=== PATIENT | male | born 1950 | race Caucasian/White ===

== ENCOUNTER 2017-06-09 20:40 | Inpatient (IN) | payer MEDICAID ==
[2017-06-09] MEDS ORDERED: cefTRIAXone 1 GM in Sodium Chloride 0.9% 50 ML IV ONE (21:17)
[2017-06-09 21:22] VITALS: BP 224/87
--- NOTE | 2017-06-09 21:24 | ED Physician Chart ---
ED Chief Complaint/HPI - Patient Information Date Seen:: 06/09/17 Time Seen:: 21:00 Chief Complaint:: Toe Pain History of Present Illness:: onset x 5 days of LGT pain with swelling and redness; no trauma, H/As, neck pain , C/P, SOB, abd. Pain, A/N/V/D/C, fever, chills, or urinary s/s Allergies:: Allergies Allergy/AdvReac Type Severity Reaction Status Date / Time MDX No Known Allergies - Nka Allergy Verified 06/09/17 21:04 [No Known Allergies - Nka] Vitals:: Vital Signs - 8 hr 06/09/17 20:59 Temp 98.0 F HR 58 RR 18 BP 224/87 O2 Sat % 99 Historian:: Patient, Family Member Review:: Nurse's Note Reviewed ED Review of Systems - Review of Systems General/Constitutional: No fever, No chills, No weight loss, No weakness, No diaphoresis, No edema, No loss of appetite Skin: No skin lesions, No rash, No bruising Head: No headache, No light-headedness Eyes: No loss of vision, No pain, No diplopia ENT: No earache, No nasal drainage, No sore throat, No tinnitus Neck: No neck pain, No swelling, No thyromegaly, No stiffness, No mass noted Cardio Vascular: No chest pain, No palpitations, No PND, No orthopnea, No edema Pulmonary: No SOB, No cough, No sputum, No wheezing GI: No nausea, No vomiting, No diarrhea, No pain, No melena, No hematochezia, No constipation, No hematemesis G/U: No dysuria, No frequency, No hematuria Musculoskeletal: No bone or joint pain, No back pain, No muscle pain Endocrine: Polyuria, Polydipsia Psychiatric: No prior psych history, No depression, No anxiety, No suicidal ideation, No homicidal ideation, No auditory hallucination, No visual hallucination Hematopoietic: No bruising, No lymphadenopathy Allergic/Immuno: No urticaria, No angioedema Neurological: No syncope, No focal symptoms, No weakness, No paresthesia, No headache, No seizure, No dizziness, No confusion, No vertigo ED Past Medical History - Past Medical History Obtainable: Yes Past Medical History: HTN, DM, Dyslipidemia Family History: Diabetes Melitus, HTN Social History: Non Smoker, No Alcohol, No Drug Use, Surgical History: None Psychiatricy History: None Medication: Reviewed Family Medical History - Family Member Mother History Unknown: Yes ED Physical Exam - Physical Examination General/Constitutional: Awake, Well-developed, well-nourished, Alert, No distress, GCS 15, Non-toxic appearing, Ambulatory Head: Atraumatic Eyes: Lids, conjuctiva normal, PERRL, EOMI Skin: Nl inspection, No rash, No skin lesions, No ecchymosis, Well hydrated, No lymphadenopathy Other Skin comments:: LGT: + Cellulitis with ulcerations and gangrene ENMT: External ears, nose nl, TM canals nl, Nasal exam nl, Lips, teeth, gums nl , Oropharynx nl, Tonsils nl Neck: Nontender, Full ROM w/o pain, No JVD, No nuchal rigidity, No bruit, No mass, No stridor Respiratory: Nl effort/Exclusion, Clear to Auscultation, No Wheeze/Rhonchi/Rales Cardio Vascular: RRR, No murmur, gallop, rubs, NL S1 S2, Carotid/Femoral/Distal pulses equal bilaterally GI: No tenderness/rebounding/guarding, No organomegaly, No hernia, Normal BS's, Nondistended, No mass/bruits, No McBurney tenderness : No CVA tenderness Extremities: No tenderness or effusion, Full ROM, normal strength in all extremities, No edema, Normal digits & nails Neuro/Psych: Alert/oriented, DTR's symmetric, Normal sensory exam, Normal motor strength, Judgement/insight normal, Mood normal, Normal gait, No focal deficits Misc: Normal back, No paraspinal tenderness ED Labs/Radiology/EKG Results - Lab Results Comments:: Glucoser: 246; Na+: 130; K+: 3.4; H/H: 9.5/29.6 - Radiology Results Comments:: NAD - EKG Interpretations EKG Time:: 21:25 Rate & Rhythm: 60; NSR Comments:: LVH; non-specific st-t changes ED Septic Shock - . Is Septic Shock (SBP<90, OR Lactate>4 mmol\L) present?: No - <6hrs of presentation: Vital Signs: Vital Signs - 8 hr 11/ 20:59 Temp 98.0 F HR 58 RR 18 BP 224/87 O2 Sat % 99 ED Reassessment (Disposition) - Reassessment Reassessment Condition:: Improved - Diagnosis Diagnosis:: Dx: Hyperglycemia; HTN; DM; hyponatremia; Hypokalemia; Anemia; Cellullitis; Sepsis - Aftercare/Follow up Instructions Aftercare/Follow-Up Instructions:: Counseled pt regarding lab results/diagnosis & need follow up, Counseled pt & family regarding lab results/diagnosis & need follow up - Patient Disposition Discharge/Transfer:: Acute Care w/in this hosp Accepting Physician:: Dr. Nguyen Time Called:: 2214 Time Responded:: 22:15 Admitted to:: Med/Surg Spoke to:: Dr. Nguyen Admitting Medical Physician:: Dr. Nguyen Condition at Disposition:: Stable, Improved
[2017-06-09] MEDS ORDERED: Morphine Sulfate 2 mg/mL 1mL Syr ONE (21:25)
[2017-06-09 21:37] LABS: % BASOPHILS 1.1 % (0.0-2.0); % EOSINOPHILS 2.4 % (0.0-5.0); % NEUTROPHILS 65.5 % (40.0-80.0); HEMATOCRIT 29.6 % (41.0-60); HEMOGLOBIN 9.5 gm/dL (12-16); MEAN CELL VOLUME 92.3 fl (80-99); MEAN CORPUSCULAR HEMOGLOBIN 29.7 pg (27.0-31.0); MEAN CORPUSCULAR HGB CONC 32.1 pg (28.0-36.0); MEAN PLATELET VOLUME 8.9 fl; NEUTROPHILE ABSOLUTE 6.9 Th/cmm (1.8-8.0); PLATELET COUNT 256 Th/cmm (150-400); RED BLOOD COUNT 3.21 Mil/cmm (3.80-5.80); RED CELL DISTRIBUTION WIDTH 14.6 % (11.5-20.0)
[2017-06-09 21:39] LABS: WHITE BLOOD COUNT 10.5 Th/cmm (4.8-10.8)
[2017-06-09 21:51] LABS: INR 1.12 (0.5-1.4); PROTHROMBIN TIME (TEST) 11.8 SECONDS (9.5-11.5)
[2017-06-09 21:54] LABS: ALB/GLOB RATIO 1.1 (1.0-1.8); BILIRUBIN,TOTAL 0.4 mg/dL (0.3-1.0); CARBON DIOXIDE 16.4 mEq/L (21.0-31.0); POTASSIUM SERUM 3.4 mEq/L (3.5-5.1)
[2017-06-09 21:55] LABS: TROP I 0.03 ng/mL (0.01-0.05)
[2017-06-09 22:00] LABS: CREATININE - SERUM 4.6 mg/dL (0.7-1.3)
[2017-06-09] MEDS ORDERED: Potassium Chloride 20 mEq ER Tab PO ONE ×2 (22:19→22:38)
[2017-06-09] MEDS ORDERED: Acetaminophen 500 MG TAB PO PRN (22:31)
--- NOTE | 2017-06-09 23:51 | Consultation ---
Consult Note - Consult Note Service Date: 06/09/17 Referring Physician: Aureliano Nguyen Consult Note: PHYSICIAN Consultation Note: Date of Admission: 06/09/17 Purpose of Consultation: cellulitis of the right toe and foot. Chief Complaint: Patient MAIDA PADGETT was admitted to location Medical[facility]Surgical Unit I with LEFT FOOT CELLULITIS. History of Present Illness: 66 y male with history of DM2, HTN admitted to the hospital for darkening of the left big toe and distal foot. Patient was diagnosed to have cellulitis and started on vanco IV and Zosyn. ID consult was called for further antibiotic management. patient is also found to have hypertension with systolic > 230. Past Medical History: DM2, HTN. Allergies Allergy/AdvReac Type Severity Reaction Status Date / Time No Known Allergies Allergy Verified 06/09/17 21:21 Vital Signs Temp 98.0 F 06/09/17 20:59 Pulse 55 06/09/17 22:18 Resp 18 06/09/17 22:18 BP 180/54 06/09/17 22:18 Pulse Ox 98 06/09/17 22:18 Current Medications Generic Name Dose Route Start Last Admin Trade Name Freq PRN Reason Stop Dose Admin Acetaminophen 500 mg 06/09/17 22:31 Tylenol Extra Strength PO 08/08/17 22:44 Q4H PRN Pain or Fever >101 Acetaminophen/Hydrocodone Bitart 1 tab 06/09/17 22:29 [place] 5mg/325mg PO 08/08/17 22:28 Q6H PRN Pain (Severe) Vancomycin HCl 1 gm/ Sodium 250 mls @ 165 mls/hr 06/09/17 23:30 Chloride IV 06/10/17 01:00 ONCE ONE Insulin Aspart 0 units 06/10/17 07:30 Novolog Insulin Sliding Scale SUBQ 08/09/17 07:29 ACHS TERA Protocol Miscellaneous 1 ea 06/09/17 22:26 Vancomycin Iv Per Pharmacy [facility] 08/08/17 22:25 PRN PRN PROTOCOL Ondansetron HCl 4 mg 06/09/17 22:30 Zofran IV 08/08/17 22:29 Q6H PRN Nausea / Vomiting Review of Systems: A 12 point ROS was reviewed with the pertinent positive and negatives noted in the HPI. Physical Exam: General: comfortable, not in any acute distress. HEENT: head: normocephalic atraumatic. oral cavity moist pink tongue. eyes no pallor, no icterus. Neck: supple, no JVD,no carotid bruit. Cardio: S1 and S2 WNL. Respiratory: vesicular breath sounds. Abdominal: Soft nT ND BS Genital/Urinary: deferred Extremities: NCCE, left big toe is cyanotic with mottling, ice cold to touch. extended proximally to adjacent forefoot. Neurological: AAOx3 Assessment: 1. Hypertensive emergency. 2. Cellulitis of the left big toe, likely arterial insufficiency. 3. DM2 4. HTN. 5. CKD versus [place]. Plan: Will give vasotec ivp and clonidine. If there is no control of his blood pressure, may start labetalol drip and cardiology consult/ will start heparin drip. check cardiac markers. Nephrology consult. ECHO. cardiology consult if patient's blood pressure remains high. Arterial us stat/CRISTY. vascular surgery consult, ? CT angio. DW patient and informed of the risk associated with heparin infusion, hemorrhage and bleedings in particular. He was also informed of the his high blood pressure. more than 1 hr spent on the patient. Thank you Dr Nguyen for involving me in taking care of this patient. Leeroy, Aston Greene M.D. [id number]
[2017-06-10 00:51] LABS: URINE BILIRUBIN NEGATIVE (NEGATIVE); URINE BLOOD MODERATE (NEGATIVE); URINE GLUCOSE (UA) 250 mg/dL (NEGATIVE); URINE KETONE NEGATIVE (NEGATIVE); URINE PH 5.5 (4.6 - 8.0); URINE PROTEIN 100 mg/dL (NEGATIVE); URINE UROBILINOGEN 0.2 E.U./dL (0.2 - 1.0)
[2017-06-10 01:04] LABS: URINE COLOR YELLOW
[2017-06-10 01:05] LABS: URINE BACTERIA NONE SEEN /hpf (NONE SEEN); URINE EPITHELIAL CELLS NONE SEEN /lpf (FEW); URINE WBC NONE SEEN /hpf (0-5)
[2017-06-10] MEDS ORDERED: Heparin Sodium 1,000 Units/mL Vial IVP ONE (01:45)
[2017-06-10 06:11] LABS: % EOSINOPHILS 3.7 % (0.0-5.0); % MONOCYTES 7.9 % (2.0-10.0); % NEUTROPHILS 55.4 % (40.0-80.0); HEMATOCRIT 30.2 % (41.0-60); HEMOGLOBIN 9.7 gm/dL (12-16); MEAN CELL VOLUME 92.3 fl (80-99); MEAN CORPUSCULAR HEMOGLOBIN 29.8 pg (27.0-31.0); MEAN CORPUSCULAR HGB CONC 32.2 pg (28.0-36.0); MEAN PLATELET VOLUME 8.9 fl; NEUTROPHILE ABSOLUTE 5.8 Th/cmm (1.8-8.0); PLATELET COUNT 272 Th/cmm (150-400); RED BLOOD COUNT 3.27 Mil/cmm (3.80-5.80); RED CELL DISTRIBUTION WIDTH 14.9 % (11.5-20.0); WHITE BLOOD COUNT 10.5 Th/cmm (4.8-10.8)
[2017-06-10] MEDS: INSULIN ASPART SLIDING SCALE 100 UNITS/ML UNIT SUBQ SCH ×4 (06:36→20:47)
[2017-06-10 06:56] LABS: ANION GAP 13.1 (7.0-16.0); BUN/CREATININE RATIO 12.6; CALCIUM SERUM 8.3 mg/dL (8.6-10.3); CARBON DIOXIDE 16.6 mEq/L (21.0-31.0); POTASSIUM SERUM 3.7 mEq/L (3.5-5.1)
[2017-06-10 07:10] LABS: CREATININE - SERUM 4.6 mg/dL (0.7-1.3)
--- NOTE | 2017-06-10 08:20 | Diagnostic Imaging Report ---
Exam: Left foot. HISTORY: Pain Findings: Multiple views of left foot reviewed. The study demonstrates a valgus deformity of the left great toe. There is no evidence of acute fracture or dislocation. Mild soft tissue swelling is noted. IMPRESSION: Mild soft tissue swelling, no evidence for acute fracture dislocation Valgus deformity of the left great toe.
--- NOTE | 2017-06-10 08:21 | Diagnostic Imaging Report ---
Portable chest x-ray Time: 2139 History: Pain Allowing for portable technique the heart size is normal. No focal pulmonary parenchymal processes. No hilar or mediastinal abnormalities. Impression: No acute abnormalities.
[2017-06-10] MEDS: Heparin 25,000 Units In D5W 25,000 UNITS/250 ML BAG IV PRN (09:05)
--- NOTE | 2017-06-10 13:19 | Diagnostic Imaging Report ---
Left lower extremity arterial Doppler study HISTORY: Peripheral vascular disease COMPARISON: None Technique: Longitudinal and transverse sonographic images of the left lower extremity arteries were obtained with doppler analysis. FINDINGS: Exam of the left side demonstrates diffuse generalized atherosclerotic vascular disease with primarily monophasic waveforms seen throughout the left lower extremity arterial system. No significant focal stenosis identified. No evidence of occlusion. Bilateral ankle-brachial bases were obtained Right ankle brachial index: 0.7 left ankle brachial index: 0.7 IMPRESSION: Findings suggestive of diffuse atherosclerotic vascular disease of the left lower extremity. No significant focal stenosis or sonographic evidence of occlusion. Please correlate with clinical findings. If indicated CT angiography of the left lower extremity may also be obtained.
--- NOTE | 2017-06-10 13:28 | History & Physical ---
ADMIT DATE: 06/10/2017 REFERRING PHYSICIAN: Dr. Nguyen. REASON FOR CONSULTATION: Pain, left big toe. Thank you for referring this patient to me. HISTORY OF PRESENT ILLNESS: This is a 66-year-old male who is obese and diabetic, with complaints of pain on the left big toe for the last 4 days prior to admission. He claims he denies trauma. He claims it started, getting worse with bluish discoloration accompanying it. The laboratory studies show leukocytosis and azotemia Doppler arterial study shows decreased flow to left lower extremity Due to azotemia, CTA can result in nephropathy Heparin to be instituted now pending further discussion with specialists and patient DICTATION ENDS HERE JOB# [id number] JUDI
--- NOTE | 2017-06-10 13:57 | Cardiology ---
06/09/2017 M-MODE ECHOCARDIOGRAM: Mitral valve: Anterior leaflet of mitral valve shows normal excursion, EF velocity. Posterior leaflet of the mitral valve shows normal excursion. Left ventricular posterior wall shows increased thickness, normal excursion. Interventricular septum shows increased thickness, normal excursion, hypertrophy of the left ventricle, ejection fraction 60%. Left atrium enlarged 4.3 cm. Aortic root shows normal dimension, normal excursion of aortic leaflets. CONCLUSION: Left atrial enlargement, ejection fraction 60%. TWO-D ECHO: Long axis view showed normal sized left ventricle with hypertrophy of the left ventricle. Left atrium enlarged. Aortic root shows normal dimension, normal excursion of aortic leaflets. Short axis view of mitral valve normal. Short axis view of aortic valve normal. Apical four chamber view showed normal sized left ventricle with hypertrophy of the left ventricle. Left atrium enlarged. Right ventricular cavity, right atrium normal. No pericardial effusion. CONCLUSION: Hypertrophy of the left ventricle, left atrial enlargement, ejection fraction 60%. Doppler study shows prominent A wave consistent with poor compliance of left ventricle, hypertrophy of the left ventricle, mild mitral regurgitation, mild tricuspid regurgitation. [facility]# [id number]
[2017-06-10] MEDS ORDERED: cloNIDine 0.2 mg/24 hr Tdm TD SCH (14:15)
[2017-06-10] MEDS: Atorvastatin Calcium 10 MG TAB PO SCH (15:09)
[2017-06-10] MEDS: Levothyroxine 0.05 Mg Tab PO SCH (16:58)
[2017-06-10] MEDS: Sodium Chloride 0.45% 1,000 ML IV SCH (16:58)
--- NOTE | 2017-06-11 01:23 | Infectious Disease Prog Note ---
Infectious Disease Subjective - Review of Systems Service Date: 06/10/17 Subjective: No change, no fever. Infectious Disease Objective - Results Result Diagrams: 06/10/17 05:35 06/10/17 05:35 Recent Labs: Laboratory Last Values WBC 10.5 Th/cmm (4.8-10.8) 06/10/17 05:35 RBC 3.27 Mil/cmm (3.80-5.80) L 06/10/17 05:35 Hgb 9.7 gm/dL (12-16) L 06/10/17 05:35 Hct 30.2 % (41.0-60) L 06/10/17 05:35 MCV 92.3 fl (80-99) 06/10/17 05:35 MCH 29.8 pg (27.0-31.0) 06/10/17 05:35 MCHC Differential 32.2 pg (28.0-36.0) 06/10/17 05:35 RDW 14.9 % (11.5-20.0) 06/10/17 05:35 Plt Count 272 Th/cmm (150-400) 06/10/17 05:35 MPV 8.9 fl 06/10/17 05:35 Neutrophils % 55.4 % (40.0-80.0) 06/10/17 05:35 Lymphocytes % 32.0 % (20.0-50.0) 06/10/17 05:35 Monocytes % 7.9 % (2.0-10.0) 06/10/17 05:35 Eosinophils % 3.7 % (0.0-5.0) 06/10/17 05:35 Basophils % 1.0 % (0.0-2.0) 06/10/17 05:35 PT 11.8 SECONDS (9.5-11.5) H 06/09/17 21:29 INR 1.12 (0.5-1.4) 06/09/17 21:29 PTT (Actin FS) 70.4 SECONDS (26.0-38.0) H 06/10/17 22:36 Sodium 138 mEq/L (136-145) 06/10/17 05:35 Potassium 3.7 mEq/L (3.5-5.1) 06/10/17 05:35 Chloride 112 mEq/L (98-107) H 06/10/17 05:35 Carbon Dioxide 16.6 mEq/L (21.0-31.0) L 06/10/17 05:35 Anion Gap 13.1 (7.0-16.0) 06/10/17 05:35 BUN 58 mg/dL (7-25) H 06/10/17 05:35 Creatinine 4.6 mg/dL (0.7-1.3) H* 06/10/17 05:35 Est GFR ( Amer) 16.4 ml/min (>90) 06/10/17 05:35 Est GFR (Non-Af Amer) 13.6 ml/min 06/10/17 05:35 BUN/Creatinine Ratio 12.6 06/10/17 05:35 Glucose 144 mg/dL (70-105) H D 06/10/17 05:35 POC Glucose 134 MG/DL (70 - 105) H 06/10/17 20:46 Hemoglobin A1c % 8.0 % (4.0-6.0) H 06/09/17 21:29 Whole Bld Lactic Acid 1.27 mmol/L (0.60-1.99) 06/09/17 21:29 Calcium 8.3 mg/dL (8.6-10.3) L 06/10/17 05:35 Total Bilirubin 0.4 mg/dL (0.3-1.0) 06/09/17 21:29 AST 8 U/L (13-39) L 06/09/17 21:29 ALT 7 U/L (7-52) 06/09/17 21:29 Alkaline Phosphatase 22 U/L (34-104) L 06/09/17 21:29 Creatine Kinase 218 U/L (30-223) 06/09/17 21:29 Troponin I 0.03 ng/mL (0.01-0.05) 06/10/17 15:12 Total Protein 6.6 gm/dL (6.0-8.3) 06/09/17 21:29 Albumin 3.4 gm/dL (4.2-5.5) L 06/09/17 21:29 Globulin 3.2 gm/dL 06/09/17 21:29 Albumin/Globulin Ratio 1.1 (1.0-1.8) 06/09/17 21:29 Triglycerides 160 mg/dL (<150) H 06/10/17 05:35 Cholesterol 224 mg/dL (<200) H 06/10/17 05:35 LDL Cholesterol Direct 175 mg/dL (75-193) 06/10/17 05:35 HDL Cholesterol 29 mg/dL (23-92) 06/10/17 05:35 TSH 9.21 uIU/ml (0.34-5.60) H 06/10/17 05:35 Urine Source MIDSTREAM 06/09/17 23:35 Urine Color YELLOW 06/09/17 23:35 Urine Clarity CLEAR (CLEAR) 06/09/17 23:35 Urine pH 5.5 (4.6 - 8.0) 06/09/17 23:35 Ur Specific [place] 1.020 (1.005-1.030) 06/09/17 23:35 Urine Protein 100 mg/dL (NEGATIVE) H 06/09/17 23:35 Urine Glucose (UA) 250 mg/dL (NEGATIVE) H 06/09/17 23:35 Urine Ketones NEGATIVE mg/dL (NEGATIVE) 06/09/17 23:35 Urine Blood MODERATE (NEGATIVE) H 06/09/17 23:35 Urine Nitrate NEGATIVE (NEGATIVE) 06/09/17 23:35 Urine Bilirubin NEGATIVE (NEGATIVE) 06/09/17 23:35 Urine Urobilinogen 0.2 E.U./dL (0.2 - 1.0) 06/09/17 23:35 Ur Leukocyte Esterase NEGATIVE (NEGATIVE) 06/09/17 23:35 Urine RBC 5-10 /hpf (0-5) H 06/09/17 23:35 Urine WBC NONE SEEN /hpf (0-5) 06/09/17 23:35 Ur Epithelial Cells NONE SEEN /lpf (FEW) 06/09/17 23:35 Urine Bacteria NONE SEEN /hpf (NONE SEEN) 06/09/17 23:35 - Physical Exam Vitals and I&O: Vital Signs Temp 98.2 F 06/10/17 20:00 Pulse 56 06/10/17 20:53 Resp 18 06/10/17 20:00 BP 140/56 06/10/17 20:53 Pulse Ox 95 06/10/17 20:00 Intake & Output 06/10/17 06/10/17 06/11/17 06:59 18:59 06:59 Intake Total 20 89 Output Total 0 Balance 20 89 Weight (lbs) 82.752 kg Intake: Intake, IV Amount 89 Heparin 25,000 Units In 89 D5W 25,000 units In 250 ml @ Titrate IV TITR PRN Rx#:[id number] Oral 20 Output: Stool 0 Other: # Voids 3 Active Medications: Current Medications Acetaminophen (Tylenol Extra Strength) 500 mg PO Q4H PRN PRN Reason: Pain or Fever >101 Stop: 08/08/17 22:44 Acetaminophen/Hydrocodone Bitart ([place] 5mg/325mg) 1 tab PO Q6H PRN PRN Reason: Pain (Severe) Stop: 08/08/17 22:28 Amlodipine Besylate (Norvasc) 10 mg PO DAILY [facility] Stop: 08/09/17 14:14 Last Admin: 06/10/17 15:09 Dose: 10 mg Atorvastatin Calcium (Lipitor) 20 mg PO DAILY TERA PRN Reason: Protocol Stop: 08/09/17 14:59 Last Admin: 06/10/17 15:09 Dose: 20 mg Cilostazol (Pletal) 50 mg PO BID [facility] Stop: 08/09/17 16:59 Last Admin: 06/10/17 16:58 Dose: 50 mg Clonidine HCl (Aqmvtztg-Nou-7) 1 patch TD Th [facility] Stop: 08/09/17 14:14 Last Admin: 06/10/17 15:09 Dose: Not Given Hydralazine HCl (Apresoline) 25 mg PO TID [facility] Stop: 08/09/17 20:59 Last Admin: 06/10/17 20:53 Dose: Not Given Heparin Sodium/Dextrose (Heparin Drip) 25,000 units in 250 mls @ 0 mls/hr IV TITR PRN; Protocol; Titrate PRN Reason: PROTOCOL Stop: 08/09/17 01:30 Last Titration: 06/10/17 16:30 Dose: 11 mls/hr Sodium Chloride (Nacl 0.45%) 1,000 mls @ 75 mls/hr IV .[id number] [facility] Stop: 08/09/17 16:05 Last Admin: 06/10/17 16:58 Dose: 75 mls/hr Insulin Aspart (Novolog Insulin Sliding Scale) 0 units SUBQ ACHS TERA PRN Reason: Protocol Stop: 08/09/17 07:29 Last Admin: 06/10/17 20:47 Dose: Not Given Levothyroxine Sodium (Synthroid) 0.05 mg PO QDAC [facility] Stop: 08/09/17 16:29 Last Admin: 06/10/17 16:58 Dose: 0.05 mg Miscellaneous (Vancomycin Iv Per Pharmacy) 1 [facility] PRN PRN PRN Reason: PROTOCOL Stop: 08/08/17 22:25 Miscellaneous (Heparin Drip Per Pharmacy) 1 [facility] PRN TERA PRN Reason: Protocol Stop: 08/09/17 00:44 Ondansetron HCl (Zofran) 4 mg IV Q6H PRN PRN Reason: Nausea / Vomiting Stop: 08/08/17 22:29 General: no acute distress, well developed, well nourished HEENT: atraumatic, normocephalic, PERRLA, EOMI Neck: supple Cardiovascular: S1S2, regular Lungs: clear to auscultation bilaterally, clear to percussion Abdomen: soft, no tender, no distended, no mass Extremities: cyanosis (cyanotic left big toe.), no clubbing, no edema Neurological: awake, alert, oriented Skin: intact Infectious Disease Assmt/Plan - Problem List Patient Problems: All Active Problems Abdominal pain (Acute) R10.9 Cholangitis (Acute) K83.0 DM w/o complication type II (Acute) E11.9 Gallbladder stone with nonacute cholecystitis (Acute) K80.10 HTN (hypertension) (Acute) I10 HTN (hypertension), benign (Acute) I10 Leukocytosis (Acute) D72.829 Renal mass (Acute) N28.89 - Assessment Assessment: 1. Hypertensive emergency. 2. Cellulitis of the left big toe, likely arterial insufficiency. Pregangrenous condition. 3. DM2 4. HTN. 5. CKD versus [place]. - Plan Plan: Continue heparin drip. Nutritional Asmnt/Malnutr-PDOC - Dietary Evaluation Malnutrition Findings (Please click <Entered> for more info): Nutritional Asmnt/Malnutrition Start: 06/10/17 14: 59 Text: Status: Complete Freq: Document 06/10/17 14:59 FRANKLIN (Rec: 06/10/17 15:06 FRANKLIN [email or web address]) Nutritional Asmnt/Malnutrition Patient General Information Nutritional Screening High Risk Diagnosis left foot cellulitis Pertinent Medical Hx/Surgical Hx HTN, DM, dyslipidemia Subjective Information Pt seen resting in bed, awake and alert. pt speaks [place]. Pt reported good appetite, consumed 100% of lunch, "small tray". Pt appeared overweigh. Current Diet Order/ Nutrition Support CCHO 60mg Pertinent Medications novolog, synthroid, vancomycin Pertinent Labs 06/10 Cl 112H, BUN 58H, Cr 4.6 , Glu 144, POC 140-183, TSH 9. 21 06/09 A1C 8.0H, glu 246 Nutritional Hx/Data Height 1.68 m Height (Calculated Centimeters) 167.6 Current Weight (lbs) 82.554 kg Weight (Calculated Kilograms) 82.6 Weight (Calculated Grams) 36716.8 Usual body Weight (lbs) 180 % Usual Body Weight 101 [place] Body Weight 142 % [place] Body Weight 128 Body Mass Index (BMI) 29.3 Weight Status Overweight GI Symptoms GI Symptoms None Difficult in: None Food Allergies No Usual diet at home eat chicken fish often, limit amount of starch, juice, milk. Skin Integrity/Comment: intact Current %PO Good (75-100%) Estimated Nutritional Goals BEE in Kcals: Using Current wt Calories/Kcals/Kg 25-30 Kcals Calculated [id number] Protein: Using Current wt Protein g/k Protein Calculated 83g monitor renal labs Fluid: ml Nutritional Problem 2. Problem Problem altered nutrition related lab values Etiology hx of dm Signs/Symptoms: Glu 144-246, POC 140-183 1. Problem Problem increased nutrition needs ( protein Etiology increased metabolic demand fow wound healing Signs/Symptoms: dx of cellulitis Malnutrition Alert Protein-Calorie Malnutrition N/A Is there a minimum of two criteria No selected? Query Text:Check all the applicable criteria. A minimum of two criteria are recommended for diagnosis of either severe or non-severe malnutrition. Intervention/Recommendation Comments 1. continue with current diet. pt understands diabetic diet and will follow it 2. adjust insulin as needed for optimal glycemic control 3. monitor PO intake, skin integrity, labs, wt weekly 4. F/U as moderate risk in 3-5 days, 06/13-06/15 Expected Outcomes/Goals Expected Outcomes/Goals 1. PO intake to continue > 75% to meet nutritional needs 2. glucose to improve 3. wt stability 4. skin integrity to impove
--- NOTE | 2017-06-11 02:27 | History & Physical ---
ADMIT DATE: 06/10/2017 CHIEF COMPLAINT: Left great toe discoloration, swelling and pain. HISTORY OF PRESENT ILLNESS: This is a 66-year-old male with underlying history of diabetes, hypertension, diabetic nephropathy, peripheral arterial disease who was evaluated at the Emergency Room at [facility] for evaluation of the left great toe pain, swelling and discoloration for 4 days' duration. The patient was evaluated in the Emergency Room, diagnosed with cellulitis with gangrenous changes. The patient was started on heparin drip and IV antibiotic and subsequently admitted for further evaluation and treatments. The patient is Cypriot speaking, a Cypriot-speaking hospital staff was used for interpretation. The patient's symptoms were going on for 4 to 5 days. He denies any associated chest pain, no shortness of breath, no dizziness, no fever, no chills, no nausea, no vomiting, no abdominal pain or any other complaints. The patient said that he has been followed by a kidney specialist. The patient was told about 3 months ago, his kidney function is about 50%. PAST MEDICAL HISTORY: Diabetic nephropathy, CKD stage 5, hypertension, peripheral arterial disease, hyperlipidemia. PAST SURGICAL HISTORY: Denies any past surgery. FAMILY HISTORY: No reported significant family history. SOCIAL HISTORY: Lives at home. Denies alcohol, tobacco, or street drug use. CURRENT MEDICATIONS: Medication reconciliation list reviewed. ALLERGIES: No known drug allergies. REVIEW OF SYSTEMS: As per HPI, a 12-point system review was negative. PHYSICAL EXAMINATION: VITAL SIGNS: Temperature 98.2, pulse 56, respirations 19, blood pressure 140/56, oxygen saturation is 95% room air. Pain is 0/10. GENERAL APPEARANCE: The patient does not seem in acute distress or pain, and lying comfortably in bed. HEENT: Unremarkable. HEART: S1, S2 normal. LUNGS: Clear to auscultation. ABDOMEN: Soft, nontender. No rebound, no guarding noted. NEUROLOGIC: The patient is alert, awake, follows commands. Moves all extremities. No focal deficits. EXTREMITIES: Left great toe discoloration noted. Pulse is feeble in both lower extremities. No open sores or any callus or any open wounds noted. ASSESSMENT: 1. Left great toe cellulitis with gangrene with gangrenous changes. 2. Chronic kidney disease 5. 3. Diabetes. 4. Diabetic nephropathy. 5. Uncontrolled hypertension. PLAN: The patient was admitted to the hospital for further evaluation and treatments. ID and Vascular Surgery were consulted. The patient was evaluated by Dr. Mtz. I ordered an arterial Doppler of the left lower extremity, suggestive of NIECY of 0.7. Due to the patient's CKD 5, Dr. Mtz recommended medical management, unable to do a CT angio. Nephrology was consulted and an ultrasound was ordered. ID was consulted. IV antibiotic was started. ID concurred with current antibiotics. The patient's blood pressure and vitals have been monitored. The patient noticed to have bradycardia. Cardiology was consulted. No further recommendation was given. We will continue the patient with the current blood pressure medications. Continue statin, Pletal was added, heparin drip was started. Discussed with the patient regarding the condition and plan of care. JOB# [id number] JUDI
--- NOTE | 2017-06-11 03:28 | Consultation ---
DATE OF CONSULTATION: 06/10/[address] Aureliano Laird. HISTORY AND PHYSICAL: This is a 66-year-old male patient, in origin, has been complaining of pain, tenderness, discoloration of left great toe. Following this, the patient came to the Emergency Room, the patient was found to have accelerated hypertension. Blood pressure 203/100. Following this patient is admitted. Cardiac consult is requested. PAST MEDICAL HISTORY: Diabetes mellitus type 2, uncontrolled; hypertension, uncontrolled; poor compliance; diabetic peripheral vascular disease; hyperlipidemia; deficiency anemia. FAMILY HISTORY: History of diabetes, hypertension. SOCIAL HISTORY: No history of smoking, alcohol abuse. ALLERGIES: None. PHYSICAL EXAMINATION: VITAL SIGNS: Blood pressure 170/80, pulse 80, respirations 28. HEAD: Normocephalic. No lumps or bumps. EYES: Pupils equal, reactive to light. Fundi show AV nicking. Sclerae white, conjunctivae pink. NECK: Carotid 2+. Normal upstroke. JVD 10 cm above the sternal angle. Thyroid not palpable. Lymph nodes not palpable. CHEST: Shows increased AP diameter. No kyphosis, scoliosis. LUNGS: Bilateral rales. Decreased breath sounds both the bases. HEART: PMI sixth intercostal space of midclavicular line. S1, S2, S3, S4, soft systolic murmur. ABDOMEN: Soft. Liver, spleen not palpable. No organomegaly. Bowel sounds active. NEUROLOGIC: Unremarkable. EXTREMITIES: Peripheral pulses 1+. The patient has discoloration and cellulitis of the left big toe. LABORATORY DATA: The patient has potassium 3.4. Creatinine 4.6. CONCLUSION: Accelerated hypertension, diabetes mellitus type 2, diabetic peripheral vascular disease, diabetic chronic kidney disease stage 4, left big toe cellulitis, hyperlipidemia, iron deficiency anemia, and hypokalemia. PLAN: Admit the patient. We will continue present care. Have renal consult and monitor the patient closely. Control the blood pressure. Also get an echocardiogram. Infection disease consult. JOB# [id number]
[2017-06-11] MEDS: Heparin 25,000 Units In D5W 25,000 UNITS/250 ML BAG IV PRN (05:16)
[2017-06-11] MEDS: Sodium Chloride 0.45% 1,000 ML IV SCH ×3 (05:18→18:48)
[2017-06-11 06:06] LABS: % BASOPHILS 0.9 % (0.0-2.0); % EOSINOPHILS 3.9 % (0.0-5.0); % LYMPHOCYTES 24.6 % (20.0-50.0); % MONOCYTES 7.4 % (2.0-10.0); % NEUTROPHILS 63.2 % (40.0-80.0); HEMATOCRIT 29.3 % (41.0-60); HEMOGLOBIN 9.8 gm/dL (12-16); MEAN CELL VOLUME 92.1 fl (80-99); MEAN CORPUSCULAR HEMOGLOBIN 30.8 pg (27.0-31.0); MEAN CORPUSCULAR HGB CONC 33.5 pg (28.0-36.0); MEAN PLATELET VOLUME 8.9 fl; NEUTROPHILE ABSOLUTE 6.8 Th/cmm (1.8-8.0); PLATELET COUNT 258 Th/cmm (150-400); RED BLOOD COUNT 3.18 Mil/cmm (3.80-5.80); RED CELL DISTRIBUTION WIDTH 14.3 % (11.5-20.0); WHITE BLOOD COUNT 10.8 Th/cmm (4.8-10.8)
[2017-06-11 06:30] LABS: ANION GAP 14.7 (7.0-16.0); BILIRUBIN,TOTAL 0.3 mg/dL (0.3-1.0); BUN/CREATININE RATIO 12.3; CARBON DIOXIDE 16.2 mEq/L (21.0-31.0); MAGNESIUM 1.6 mg/dL (1.9-2.7); POTASSIUM SERUM 3.9 mEq/L (3.5-5.1)
[2017-06-11] MEDS: Levothyroxine 0.05 Mg Tab PO SCH (06:44)
[2017-06-11 07:00] LABS: CREATININE - SERUM 4.8 mg/dL (0.7-1.3)
[2017-06-11] MEDS: INSULIN ASPART SLIDING SCALE 100 UNITS/ML UNIT SUBQ SCH ×4 (07:03→21:19)
--- NOTE | 2017-06-11 08:12 | Diagnostic Imaging Report ---
Exam: Ultrasound summation kidneys HISTORY diabetic neuropathy. Findings. Real-time ultrasound summation kidneys performed multiple planes. The study demonstrates no evidence of obstructive uropathy or nephrolithiasis. Right kidney measures 611.6 x 4.6 x 5.1 mm diameter contains 2.7 x 2.8 cm cyst. Left kidney measures 11.0 x 5.8 x 5.6 m diameter. There is no evidence of obstructive uropathy. Urinary bladder is intact. The prostate gland enlargement measuring 5.2 x 5.6 m diameter. There is evidence for cholelithiasis with large calculus measuring 2.9 cm diameter. IMPRESSION: Essentially unremarkable examination of the kidneys Enlarged prostate gland Cholelithiasis
[2017-06-11] MEDS ORDERED: NIFEdipine 30 mg ER Tab PO SCH (09:00)
[2017-06-11] MEDS: Atorvastatin Calcium 10 MG TAB PO SCH (09:44)
--- NOTE | 2017-06-11 10:46 | General Progress Note ---
Subjective - Review of Systems Service Date: 06/11/17 Events since last encounter: left big toe and 2nd toe dusky unable to do CTA Pletal and ASA ordered Objective - Results Result Diagrams: 06/11/17 05:46 06/11/17 05:46 Recent Labs: Laboratory Last Values WBC 10.8 Th/cmm (4.8-10.8) 06/11/17 05:46 RBC 3.18 Mil/cmm (3.80-5.80) L 06/11/17 05:46 Hgb 9.8 gm/dL (12-16) L 06/11/17 05:46 Hct 29.3 % (41.0-60) L 06/11/17 05:46 MCV 92.1 fl (80-99) 06/11/17 05:46 MCH 30.8 pg (27.0-31.0) 06/11/17 05:46 MCHC Differential 33.5 pg (28.0-36.0) 06/11/17 05:46 RDW 14.3 % (11.5-20.0) 06/11/17 05:46 Plt Count 258 Th/cmm (150-400) 06/11/17 05:46 MPV 8.9 fl 06/11/17 05:46 Neutrophils % 63.2 % (40.0-80.0) 06/11/17 05:46 Lymphocytes % 24.6 % (20.0-50.0) 06/11/17 05:46 Monocytes % 7.4 % (2.0-10.0) 06/11/17 05:46 Eosinophils % 3.9 % (0.0-5.0) 06/11/17 05:46 Basophils % 0.9 % (0.0-2.0) 06/11/17 05:46 PT 11.8 SECONDS (9.5-11.5) H 06/09/17 21:29 INR 1.12 (0.5-1.4) 06/09/17 21:29 PTT (Actin FS) 70.4 SECONDS (26.0-38.0) H 06/10/17 22:36 Sodium 135 mEq/L (136-145) L 06/11/17 05:46 Potassium 3.9 mEq/L (3.5-5.1) 06/11/17 05:46 Chloride 108 mEq/L (98-107) H 06/11/17 05:46 Carbon Dioxide 16.2 mEq/L (21.0-31.0) L 06/11/17 05:46 Anion Gap 14.7 (7.0-16.0) 06/11/17 05:46 BUN 59 mg/dL (7-25) H 06/11/17 05:46 Creatinine 4.8 mg/dL (0.7-1.3) H* 06/11/17 05:46 Est GFR ( Amer) 15.6 ml/min (>90) 06/11/17 05:46 Est GFR (Non-Af Amer) 12.9 ml/min 06/11/17 05:46 BUN/Creatinine Ratio 12.3 06/11/17 05:46 Glucose 153 mg/dL (70-105) H 06/11/17 05:46 POC Glucose 149 MG/DL (70 - 105) H 06/11/17 06:12 Hemoglobin A1c % 8.0 % (4.0-6.0) H 06/09/17 21:29 Whole Bld Lactic Acid 1.27 mmol/L (0.60-1.99) 06/09/17 21:29 Calcium 8.0 mg/dL (8.6-10.3) L 06/11/17 05:46 Phosphorus 6.0 mg/dL (2.5-5.0) H 06/11/17 05:46 Magnesium 1.6 mg/dL (1.9-2.7) L 06/11/17 05:46 Total Bilirubin 0.3 mg/dL (0.3-1.0) 06/11/17 05:46 AST 9 U/L (13-39) L 06/11/17 05:46 ALT 6 U/L (7-52) L 06/11/17 05:46 Alkaline Phosphatase 23 U/L (34-104) L 06/11/17 05:46 Creatine Kinase 218 U/L (30-223) 06/09/17 21:29 Troponin I 0.03 ng/mL (0.01-0.05) 06/10/17 15:12 Total Protein 6.4 gm/dL (6.0-8.3) 06/11/17 05:46 Albumin 3.2 gm/dL (4.2-5.5) L 06/11/17 05:46 Globulin 3.2 gm/dL 06/11/17 05:46 Albumin/Globulin Ratio 1.0 (1.0-1.8) 06/11/17 05:46 Triglycerides 190 mg/dL (<150) H 06/11/17 05:46 Cholesterol 212 mg/dL (<200) H 06/11/17 05:46 LDL Cholesterol Direct 176 mg/dL (75-193) 06/11/17 05:46 HDL Cholesterol 27 mg/dL (23-92) 06/11/17 05:46 TSH 5.61 uIU/ml (0.34-5.60) H 06/11/17 05:46 Urine Source MIDSTREAM 06/09/17 23:35 Urine Color YELLOW 06/09/17 23:35 Urine Clarity CLEAR (CLEAR) 06/09/17 23:35 Urine pH 5.5 (4.6 - 8.0) 06/09/17 23:35 Ur Specific [place] 1.020 (1.005-1.030) 06/09/17 23:35 Urine Protein 100 mg/dL (NEGATIVE) H 06/09/17 23:35 Urine Glucose (UA) 250 mg/dL (NEGATIVE) H 06/09/17 23:35 Urine Ketones NEGATIVE mg/dL (NEGATIVE) 06/09/17 23:35 Urine Blood MODERATE (NEGATIVE) H 06/09/17 23:35 Urine Nitrate NEGATIVE (NEGATIVE) 06/09/17 23:35 Urine Bilirubin NEGATIVE (NEGATIVE) 06/09/17 23:35 Urine Urobilinogen 0.2 E.U./dL (0.2 - 1.0) 06/09/17 23:35 Ur Leukocyte Esterase NEGATIVE (NEGATIVE) 06/09/17 23:35 Urine RBC 5-10 /hpf (0-5) H 06/09/17 23:35 Urine WBC NONE SEEN /hpf (0-5) 06/09/17 23:35 Ur Epithelial Cells NONE SEEN /lpf (FEW) 06/09/17 23:35 Urine Bacteria NONE SEEN /hpf (NONE SEEN) 06/09/17 23:35 Random Vancomycin 18.5 ug/mL (5.0-40.0) 06/11/17 05:46 - Physical Exam Vitals and I&O: Vital Signs Temp 98.2 F 06/11/17 04:00 Pulse 62 06/11/17 09:45 Resp 18 06/11/17 04:00 BP 159/65 06/11/17 09:45 Pulse Ox 96 06/11/17 04:00 Intake & Output 06/10/17 06/11/17 06/11/17 18:59 06:59 18:59 Intake Total 89 1065.433 Balance 89 1065.433 Intake: Intake, IV Amount 89 1065.433 Heparin 25,000 Units In 89 140.433 D5W 25,000 units In 250 ml @ Titrate IV TITR PRN Rx#:[id number] Sodium Chloride 0.45% 1, 925 000 ml @ 75 mls/hr IV . [id number] [facility] Rx#:[id number] Active Medications: Current Medications Acetaminophen (Tylenol Extra Strength) 500 mg PO Q4H PRN PRN Reason: Pain or Fever >101 Stop: 08/08/17 22:44 Acetaminophen/Hydrocodone Bitart ([place] 5mg/325mg) 1 tab PO Q6H PRN PRN Reason: Pain (Severe) Stop: 08/08/17 22:28 Amlodipine Besylate (Norvasc) [address] [facility] Stop: 08/09/17 14:14 Last Admin: 06/11/17 09:45 Dose: 10 mg Atorvastatin Calcium (Lipitor) 20 mg PO DAILY [facility] PRN Reason: Protocol Stop: 08/09/17 14:59 Last Admin: 06/11/17 09:44 Dose: 20 mg Cilostazol (Pletal) [address] [facility] Stop: 08/09/17 16:59 Last Admin: 06/11/17 09:44 Dose: 50 mg Clonidine HCl (Qukginvr-Lqp-1) [address] [facility] Stop: 08/09/17 14:14 Last Admin: 06/10/17 15:09 Dose: Not Given Hydralazine HCl (Apresoline) [address] [facility] Stop: 08/09/17 20:59 Last Admin: 06/11/17 09:44 Dose: 25 mg Heparin Sodium/Dextrose (Heparin Drip) 25,000 units in 250 mls @ 0 mls/hr IV TITR PRN; Protocol; Titrate PRN Reason: PROTOCOL Stop: 08/09/17 01:30 Last Admin: 06/11/17 05:16 Dose: 11 mls/hr Sodium Chloride (Nacl 0.45%) 1,000 mls @ 75 mls/hr IV .[id number] [facility] Stop: 08/09/17 16:05 Last Admin: 06/11/17 05:18 Dose: 75 mls/hr Insulin Aspart (Novolog Insulin Sliding Scale) 0 units SUBQ ACHS [facility] PRN Reason: Protocol Stop: 08/09/17 07:29 Last Admin: 06/11/17 07:03 Dose: Not Given Levothyroxine Sodium (Synthroid) 0.[address] [facility] Stop: 08/09/17 16:29 Last Admin: 06/11/17 06:44 Dose: 0.05 mg Miscellaneous (Heparin Drip Per Pharmacy) 1 ea MC PRN TERA PRN Reason: Protocol Stop: 08/09/17 00:44 Ondansetron HCl (Zofran) 4 mg IV Q6H PRN PRN Reason: Nausea / Vomiting Stop: 08/08/17 22:29 Sodium Bicarbonate (Sodium Bicarbonate) 1,250 mg PO TID [facility] PRN Reason: Protocol Stop: 08/10/17 13:59 Assessment/Plan - Problem List Patient Problems: All Active Problems Abdominal pain (Acute) R10.9 Cholangitis (Acute) K83.0 DM w/o complication type II (Acute) E11.9 Gallbladder stone with nonacute cholecystitis (Acute) K80.10 HTN (hypertension) (Acute) I10 HTN (hypertension), benign (Acute) I10 Leukocytosis (Acute) D72.829 Renal mass (Acute) N28.89 Nutritional Asmnt/Malnutr-PDOC - Dietary Evaluation Malnutrition Findings (Please click <Entered> for more info): Nutritional Asmnt/Malnutrition Start: 06/10/17 14: 59 Text: Status: Complete Freq: Document 06/10/17 14:59 FRANKLIN (Rec: 06/10/17 15:06 [email or web address]) Nutritional Asmnt/Malnutrition Patient General Information Nutritional Screening High Risk Diagnosis left foot cellulitis Pertinent Medical Hx/Surgical Hx HTN, DM, dyslipidemia Subjective Information Pt seen resting in bed, awake and alert. pt speaks Kyrgyz. Pt reported good appetite, consumed 100% of lunch, "small tray". Pt appeared overweigh. Current Diet Order/ Nutrition Support CCHO 60mg Pertinent Medications novolog, synthroid, vancomycin Pertinent Labs 06/10 Cl 112H, BUN 58H, Cr 4.6 , Glu 144, POC 140-183, TSH 9. 21 06/09 A1C 8.0H, glu 246 Nutritional Hx/Data Height 1.68 m Height (Calculated Centimeters) 167.6 Current Weight (lbs) 82.554 kg Weight (Calculated Kilograms) 82.6 Weight (Calculated Grams) 42878.8 Usual body Weight (lbs) 180 % Usual Body Weight 101 [place] Body Weight 142 % [place] Body Weight 128 Body Mass Index (BMI) 29.3 Weight Status Overweight GI Symptoms GI Symptoms None Difficult in: None Food Allergies No Usual diet at home eat chicken fish often, limit amount of starch, juice, milk. Skin Integrity/Comment: intact Current %PO Good (75-100%) Estimated Nutritional Goals BEE in Kcals: Using Current wt Calories/Kcals/Kg 25-30 Kcals Calculated 0403-5170 Protein: Using Current wt Protein g/k Protein Calculated 83g monitor renal labs Fluid: ml 3860-8106 Nutritional Problem 2. Problem Problem altered nutrition related lab values Etiology hx of dm Signs/Symptoms: Glu 144-246, POC 140-183 1. Problem Problem increased nutrition needs ( protein Etiology increased metabolic demand fow wound healing Signs/Symptoms: dx of cellulitis Malnutrition Alert Protein-Calorie Malnutrition N/A Is there a minimum of two criteria No selected? Query Text:Check all the applicable criteria. A minimum of two criteria are recommended for diagnosis of either severe or non-severe malnutrition. Intervention/Recommendation Comments 1. continue with current diet. pt understands diabetic diet and will follow it 2. adjust insulin as needed for optimal glycemic control 3. monitor PO intake, skin integrity, labs, wt weekly 4. F/U as moderate risk in 3-5 days, 06/13-06/15 Expected Outcomes/Goals Expected Outcomes/Goals 1. PO intake to continue > 75% to meet nutritional needs 2. glucose to improve 3. wt stability 4. skin integrity to impove
--- NOTE | 2017-06-11 11:46 | Infectious Disease Prog Note ---
Infectious Disease Subjective - Review of Systems Service Date: 06/11/17 Subjective: No change, no fever. Infectious Disease Objective - Results Result Diagrams: 06/11/17 05:46 06/11/17 05:46 Recent Labs: Laboratory Last Values WBC 10.8 Th/cmm (4.8-10.8) 06/11/17 05:46 RBC 3.18 Mil/cmm (3.80-5.80) L 06/11/17 05:46 Hgb 9.8 gm/dL (12-16) L 06/11/17 05:46 Hct 29.3 % (41.0-60) L 06/11/17 05:46 MCV 92.1 fl (80-99) 06/11/17 05:46 MCH 30.8 pg (27.0-31.0) 06/11/17 05:46 MCHC Differential 33.5 pg (28.0-36.0) 06/11/17 05:46 RDW 14.3 % (11.5-20.0) 06/11/17 05:46 Plt Count 258 Th/cmm (150-400) 06/11/17 05:46 MPV 8.9 fl 06/11/17 05:46 Neutrophils % 63.2 % (40.0-80.0) 06/11/17 05:46 Lymphocytes % 24.6 % (20.0-50.0) 06/11/17 05:46 Monocytes % 7.4 % (2.0-10.0) 06/11/17 05:46 Eosinophils % 3.9 % (0.0-5.0) 06/11/17 05:46 Basophils % 0.9 % (0.0-2.0) 06/11/17 05:46 PT 11.8 SECONDS (9.5-11.5) H 06/09/17 21:29 INR 1.12 (0.5-1.4) 06/09/17 21:29 PTT (Actin FS) 73.3 SECONDS (26.0-38.0) H 06/11/17 05:46 Sodium 135 mEq/L (136-145) L 06/11/17 05:46 Potassium 3.9 mEq/L (3.5-5.1) 06/11/17 05:46 Chloride 108 mEq/L (98-107) H 06/11/17 05:46 Carbon Dioxide 16.2 mEq/L (21.0-31.0) L 06/11/17 05:46 Anion Gap 14.7 (7.0-16.0) 06/11/17 05:46 BUN 59 mg/dL (7-25) H 06/11/17 05:46 Creatinine 4.8 mg/dL (0.7-1.3) H* 06/11/17 05:46 Est GFR ( Amer) 15.6 ml/min (>90) 06/11/17 05:46 Est GFR (Non-Af Amer) 12.9 ml/min 06/11/17 05:46 BUN/Creatinine Ratio 12.3 06/11/17 05:46 Glucose 153 mg/dL (70-105) H 06/11/17 05:46 POC Glucose 188 MG/DL (70 - 105) H 06/11/17 11:29 Hemoglobin A1c % 8.0 % (4.0-6.0) H 06/09/17 21:29 Whole Bld Lactic Acid 1.27 mmol/L (0.60-1.99) 06/09/17 21:29 Calcium 8.0 mg/dL (8.6-10.3) L 06/11/17 05:46 Phosphorus 6.0 mg/dL (2.5-5.0) H 06/11/17 05:46 Magnesium 1.6 mg/dL (1.9-2.7) L 06/11/17 05:46 Total Bilirubin 0.3 mg/dL (0.3-1.0) 06/11/17 05:46 AST 9 U/L (13-39) L 06/11/17 05:46 ALT 6 U/L (7-52) L 06/11/17 05:46 Alkaline Phosphatase 23 U/L (34-104) L 06/11/17 05:46 Creatine Kinase 218 U/L (30-223) 06/09/17 21:29 Troponin I 0.03 ng/mL (0.01-0.05) 06/10/17 15:12 Total Protein 6.4 gm/dL (6.0-8.3) 06/11/17 05:46 Albumin 3.2 gm/dL (4.2-5.5) L 06/11/17 05:46 Globulin 3.2 gm/dL 06/11/17 05:46 Albumin/Globulin Ratio 1.0 (1.0-1.8) 06/11/17 05:46 Triglycerides 190 mg/dL (<150) H 06/11/17 05:46 Cholesterol 212 mg/dL (<200) H 06/11/17 05:46 LDL Cholesterol Direct 176 mg/dL (75-193) 06/11/17 05:46 HDL Cholesterol 27 mg/dL (23-92) 06/11/17 05:46 TSH 5.61 uIU/ml (0.34-5.60) H 06/11/17 05:46 Urine Source MIDSTREAM 06/09/17 23:35 Urine Color YELLOW 06/09/17 23:35 Urine Clarity CLEAR (CLEAR) 06/09/17 23:35 Urine pH 5.5 (4.6 - 8.0) 06/09/17 23:35 Ur Specific [place] 1.020 (1.005-1.030) 06/09/17 23:35 Urine Protein 100 mg/dL (NEGATIVE) H 06/09/17 23:35 Urine Glucose (UA) 250 mg/dL (NEGATIVE) H 06/09/17 23:35 Urine Ketones NEGATIVE mg/dL (NEGATIVE) 06/09/17 23:35 Urine Blood MODERATE (NEGATIVE) H 06/09/17 23:35 Urine Nitrate NEGATIVE (NEGATIVE) 06/09/17 23:35 Urine Bilirubin NEGATIVE (NEGATIVE) 06/09/17 23:35 Urine Urobilinogen 0.2 E.U./dL (0.2 - 1.0) 06/09/17 23:35 Ur Leukocyte Esterase NEGATIVE (NEGATIVE) 06/09/17 23:35 Urine RBC 5-10 /hpf (0-5) H 06/09/17 23:35 Urine WBC NONE SEEN /hpf (0-5) 06/09/17 23:35 Ur Epithelial Cells NONE SEEN /lpf (FEW) 06/09/17 23:35 Urine Bacteria NONE SEEN /hpf (NONE SEEN) 06/09/17 23:35 Random Vancomycin 18.5 ug/mL (5.0-40.0) 06/11/17 05:46 - Physical Exam Vitals and I&O: Vital Signs Temp 98.2 F 06/11/17 04:00 Pulse 62 06/11/17 09:45 Resp 18 06/11/17 04:00 BP 159/65 06/11/17 09:45 Pulse Ox 96 06/11/17 04:00 Intake & Output 06/10/17 06/11/17 06/11/17 18:59 06:59 18:59 Intake Total 89 1065.433 Balance 89 1065.433 Intake: Intake, IV Amount 89 1065.433 Heparin 25,000 Units In 89 140.433 D5W 25,000 units In 250 ml @ Titrate IV TITR PRN Rx#:[id number] Sodium Chloride 0.45% 1, 925 000 ml @ 75 mls/hr IV . [id number] [facility] Rx#:[id number] Active Medications: Current Medications Acetaminophen (Tylenol Extra Strength) 500 mg PO Q4H PRN PRN Reason: Pain or Fever >101 Stop: 08/08/17 22:44 Acetaminophen/Hydrocodone Bitart ([place] 5mg/325mg) 1 tab PO Q6H PRN PRN Reason: Pain (Severe) Stop: 08/08/17 22:28 Amlodipine Besylate (Norvasc) [address] [facility] Stop: 08/09/17 14:14 Last Admin: 06/11/17 09:45 Dose: 10 mg Atorvastatin Calcium (Lipitor) [address] [facility] PRN Reason: Protocol Stop: 08/09/17 14:59 Last Admin: 06/11/17 09:44 Dose: 20 mg Cilostazol (Pletal) [address] [facility] Stop: 08/09/17 16:59 Last Admin: 06/11/17 09:44 Dose: 50 mg Clonidine HCl (Xucvothb-Isz-0) [address] [facility] Stop: 08/09/17 14:14 Last Admin: 06/10/17 15:09 Dose: Not Given Hydralazine HCl (Apresoline) [address] [facility] Stop: 08/09/17 20:59 Last Admin: 06/11/17 09:44 Dose: 25 mg Heparin Sodium/Dextrose (Heparin Drip) 25,000 units in 250 mls @ 0 mls/hr IV TITR PRN; Protocol; Titrate PRN Reason: PROTOCOL Stop: 08/09/17 01:30 Last Admin: 06/11/17 05:16 Dose: 11 mls/hr Sodium Chloride (Nacl 0.45%) 1,000 mls @ 75 mls/hr IV .[id number] [facility] Stop: 08/09/17 16:05 Last Admin: 06/11/17 05:18 Dose: 75 mls/hr Insulin Aspart (Novolog Insulin Sliding Scale) 0 units SUBQ ACHS [facility] PRN Reason: Protocol Stop: 08/09/17 07:29 Last Admin: 06/11/17 07:03 Dose: Not Given Levothyroxine Sodium (Synthroid) 0.[address] [facility] Stop: 08/09/17 16:29 Last Admin: 06/11/17 06:44 Dose: 0.05 mg Miscellaneous (Heparin Drip Per Pharmacy) 1 ea MC PRN TERA PRN Reason: Protocol Stop: 08/09/17 00:44 Ondansetron HCl (Zofran) 4 mg IV Q6H PRN PRN Reason: Nausea / Vomiting Stop: 08/08/17 22:29 Sodium Bicarbonate (Sodium Bicarbonate) 1,250 mg PO TID [facility] PRN Reason: Protocol Stop: 08/10/17 13:59 General: no acute distress, well developed, well nourished HEENT: atraumatic, normocephalic, PERRLA Neck: supple Cardiovascular: S1S2, regular Lungs: clear to auscultation bilaterally, clear to percussion Abdomen: soft, no tender, no distended Extremities: no cyanosis, no clubbing, no edema Neurological: awake, alert, oriented, other (left big toe is cyanotic.) Skin: intact Infectious Disease Assmt/Plan - Problem List Patient Problems: All Active Problems Abdominal pain (Acute) R10.9 Cholangitis (Acute) K83.0 DM w/o complication type II (Acute) E11.9 Gallbladder stone with nonacute cholecystitis (Acute) K80.10 HTN (hypertension) (Acute) I10 HTN (hypertension), benign (Acute) I10 Leukocytosis (Acute) D72.829 Renal mass (Acute) N28.89 - Assessment Assessment: 1. Hypertensive emergency. 2. Cellulitis of the left big toe, likely arterial insufficiency. Pregangrenous condition. 3. DM2 4. HTN. 5. CKD versus [place]. - Plan Plan: Continue heparin drip. Nutritional Asmnt/Malnutr-PDOC - Dietary Evaluation Malnutrition Findings (Please click <Entered> for more info): Nutritional Asmnt/Malnutrition Start: 06/10/17 14: 59 Text: Status: Complete Freq: Document 06/10/17 14:59 FRANKLIN (Rec: 06/10/17 15:06 [email or web address] [email or web address]) Nutritional Asmnt/Malnutrition Patient General Information Nutritional Screening High Risk Diagnosis left foot cellulitis Pertinent Medical Hx/Surgical Hx HTN, DM, dyslipidemia Subjective Information Pt seen resting in bed, awake and alert. pt speaks Czech. Pt reported good appetite, consumed 100% of lunch, "small tray". Pt appeared overweigh. Current Diet Order/ Nutrition Support CCHO 60mg Pertinent Medications novolog, synthroid, vancomycin Pertinent Labs 06/10 Cl 112H, BUN 58H, Cr 4.6 , Glu 144, POC 140-183, TSH 9. 21 06/09 A1C 8.0H, glu 246 Nutritional Hx/Data Height 1.68 m Height (Calculated Centimeters) 167.6 Current Weight (lbs) 82.554 kg Weight (Calculated Kilograms) 82.6 Weight (Calculated Grams) 84272.8 Usual body Weight (lbs) 180 % Usual Body Weight 101 [place] Body Weight 142 % [place] Body Weight 128 Body Mass Index (BMI) 29.3 Weight Status Overweight GI Symptoms GI Symptoms None Difficult in: None Food Allergies No Usual diet at home eat chicken fish often, limit amount of starch, juice, milk. Skin Integrity/Comment: intact Current %PO Good (75-100%) Estimated Nutritional Goals BEE in Kcals: Using Current wt Calories/Kcals/Kg 25-30 Kcals Calculated 8165-7369 Protein: Using Current wt Protein g/k Protein Calculated 83g monitor renal labs Fluid: ml Nutritional Problem 2. Problem Problem altered nutrition related lab values Etiology hx of dm Signs/Symptoms: Glu 144-246, POC 140-183 1. Problem Problem increased nutrition needs ( protein Etiology increased metabolic demand fow wound healing Signs/Symptoms: dx of cellulitis Malnutrition Alert Protein-Calorie Malnutrition N/A Is there a minimum of two criteria No selected? Query Text:Check all the applicable criteria. A minimum of two criteria are recommended for diagnosis of either severe or non-severe malnutrition. Intervention/Recommendation Comments 1. continue with current diet. pt understands diabetic diet and will follow it 2. adjust insulin as needed for optimal glycemic control 3. monitor PO intake, skin integrity, labs, wt weekly 4. F/U as moderate risk in 3-5 days, 06/13-06/15 Expected Outcomes/Goals Expected Outcomes/Goals 1. PO intake to continue > 75% to meet nutritional needs 2. glucose to improve 3. wt stability 4. skin integrity to impove
[2017-06-11] MEDS ORDERED: Epoetin Alfa 20000 Units/mL Vial SUBQ SCH (17:30)
--- NOTE | 2017-06-11 22:02 | General Progress Note ---
Subjective - Review of Systems Service Date: 06/11/17 Subjective: Patient seen and examined denied pain around left toe great area Objective - Results Result Diagrams: 06/11/17 05:46 06/11/17 05:46 Recent Labs: Laboratory Last Values WBC 10.8 Th/cmm (4.8-10.8) 06/11/17 05:46 RBC 3.18 Mil/cmm (3.80-5.80) L 06/11/17 05:46 Hgb 9.8 gm/dL (12-16) L 06/11/17 05:46 Hct 29.3 % (41.0-60) L 06/11/17 05:46 MCV 92.1 fl (80-99) 06/11/17 05:46 MCH 30.8 pg (27.0-31.0) 06/11/17 05:46 MCHC Differential 33.5 pg (28.0-36.0) 06/11/17 05:46 RDW 14.3 % (11.5-20.0) 06/11/17 05:46 Plt Count 258 Th/cmm (150-400) 06/11/17 05:46 MPV 8.9 fl 06/11/17 05:46 Neutrophils % 63.2 % (40.0-80.0) 06/11/17 05:46 Lymphocytes % 24.6 % (20.0-50.0) 06/11/17 05:46 Monocytes % 7.4 % (2.0-10.0) 06/11/17 05:46 Eosinophils % 3.9 % (0.0-5.0) 06/11/17 05:46 Basophils % 0.9 % (0.0-2.0) 06/11/17 05:46 PT 11.8 SECONDS (9.5-11.5) H 06/09/17 21:29 INR 1.12 (0.5-1.4) 06/09/17 21:29 PTT (Actin FS) 56.6 SECONDS (26.0-38.0) H 06/11/17 12:55 Sodium 135 mEq/L (136-145) L 06/11/17 05:46 Potassium 3.9 mEq/L (3.5-5.1) 06/11/17 05:46 Chloride 108 mEq/L (98-107) H 06/11/17 05:46 Carbon Dioxide 16.2 mEq/L (21.0-31.0) L 06/11/17 05:46 Anion Gap 14.7 (7.0-16.0) 06/11/17 05:46 BUN 59 mg/dL (7-25) H 06/11/17 05:46 Creatinine 4.8 mg/dL (0.7-1.3) H* 06/11/17 05:46 Est GFR ( Amer) 15.6 ml/min (>90) 06/11/17 05:46 Est GFR (Non-Af Amer) 12.9 ml/min 06/11/17 05:46 BUN/Creatinine Ratio 12.3 06/11/17 05:46 Glucose 153 mg/dL (70-105) H 06/11/17 05:46 POC Glucose 207 MG/DL (70 - 105) H 06/11/17 19:41 Hemoglobin A1c % 8.0 % (4.0-6.0) H 06/09/17 21:29 Whole Bld Lactic Acid 1.27 mmol/L (0.60-1.99) 06/09/17 21:29 Calcium 8.0 mg/dL (8.6-10.3) L 06/11/17 05:46 Phosphorus 6.0 mg/dL (2.5-5.0) H 06/11/17 05:46 Magnesium 1.6 mg/dL (1.9-2.7) L 06/11/17 05:46 Total Bilirubin 0.3 mg/dL (0.3-1.0) 06/11/17 05:46 AST 9 U/L (13-39) L 06/11/17 05:46 ALT 6 U/L (7-52) L 06/11/17 05:46 Alkaline Phosphatase 23 U/L (34-104) L 06/11/17 05:46 Creatine Kinase 218 U/L (30-223) 06/09/17 21:29 Troponin I 0.03 ng/mL (0.01-0.05) 06/10/17 15:12 Total Protein 6.4 gm/dL (6.0-8.3) 06/11/17 05:46 Albumin 3.2 gm/dL (4.2-5.5) L 06/11/17 05:46 Globulin 3.2 gm/dL 06/11/17 05:46 Albumin/Globulin Ratio 1.0 (1.0-1.8) 06/11/17 05:46 Triglycerides 190 mg/dL (<150) H 06/11/17 05:46 Cholesterol 212 mg/dL (<200) H 06/11/17 05:46 LDL Cholesterol Direct 176 mg/dL (75-193) 06/11/17 05:46 HDL Cholesterol 27 mg/dL (23-92) 06/11/17 05:46 TSH 5.61 uIU/ml (0.34-5.60) H 06/11/17 05:46 Urine Source MIDSTREAM 06/09/17 23:35 Urine Color YELLOW 06/09/17 23:35 Urine Clarity CLEAR (CLEAR) 06/09/17 23:35 Urine pH 5.5 (4.6 - 8.0) 06/09/17 23:35 Ur Specific [place] 1.020 (1.005-1.030) 06/09/17 23:35 Urine Protein 100 mg/dL (NEGATIVE) H 06/09/17 23:35 Urine Glucose (UA) 250 mg/dL (NEGATIVE) H 06/09/17 23:35 Urine Ketones NEGATIVE mg/dL (NEGATIVE) 06/09/17 23:35 Urine Blood MODERATE (NEGATIVE) H 06/09/17 23:35 Urine Nitrate NEGATIVE (NEGATIVE) 06/09/17 23:35 Urine Bilirubin NEGATIVE (NEGATIVE) 06/09/17 23:35 Urine Urobilinogen 0.2 E.U./dL (0.2 - 1.0) 06/09/17 23:35 Ur Leukocyte Esterase NEGATIVE (NEGATIVE) 06/09/17 23:35 Urine RBC 5-10 /hpf (0-5) H 06/09/17 23:35 Urine WBC NONE SEEN /hpf (0-5) 06/09/17 23:35 Ur Epithelial Cells NONE SEEN /lpf (FEW) 06/09/17 23:35 Urine Bacteria NONE SEEN /hpf (NONE SEEN) 06/09/17 23:35 Random Vancomycin 18.5 ug/mL (5.0-40.0) 06/11/17 05:46 - Physical Exam Vitals and I&O: Vital Signs Temp 98.2 F 06/11/17 20:00 Pulse 72 06/11/17 21:19 Resp 18 06/11/17 20:00 BP 141/53 06/11/17 21:19 Pulse Ox 97 06/11/17 20:00 Intake & Output 06/11/17 06/11/17 06/12/17 06:59 18:59 06:59 Intake Total 1065.433 982.5 Balance 1065.433 982.5 Intake: Intake, IV Amount 1065.433 982.5 Heparin 25,000 Units In 140.433 D5W 25,000 units In 250 ml @ Titrate IV TITR PRN Rx#:[id number] Sodium Chloride 0.45% 1, 925 982.5 000 ml @ 75 mls/hr IV . [id number] [facility] Rx#:[id number] Active Medications: Current Medications Acetaminophen (Tylenol Extra Strength) 500 mg PO Q4H PRN PRN Reason: Pain or Fever >101 Stop: 08/08/17 22:44 Acetaminophen/Hydrocodone Bitart ([place] 5mg/325mg) 1 tab PO Q6H PRN PRN Reason: Pain (Severe) Stop: 08/08/17 22:28 Amlodipine Besylate (Norvasc) 10 mg PO DAILY [facility] Stop: 08/09/17 14:14 Last Admin: 06/11/17 09:45 Dose: 10 mg Atorvastatin Calcium (Lipitor) 20 mg PO DAILY [facility] PRN Reason: Protocol Stop: 08/09/17 14:59 Last Admin: 06/11/17 09:44 Dose: 20 mg Calcitriol (Rocaltrol) 0.25 mcg PO DAILY [facility] Stop: 08/11/17 08:59 Cilostazol (Pletal) 50 mg PO BID [facility] Stop: 08/09/17 16:59 Last Admin: 06/11/17 17:25 Dose: 50 mg Clonidine HCl (Baoiwztw-Oji-3) 1 patch TD Th [facility] Stop: 08/09/17 14:14 Last Admin: 06/10/17 15:09 Dose: Not Given Epoetin Drake (Epogen) 10,000 units SUBQ MoWeFr [facility] Stop: 08/10/17 17:29 Ferrous Sulfate (Iron) 300 mg PO BID [facility] Stop: 08/11/17 08:59 Folic Acid (Folate) 1 mg PO DAILY [facility] Stop: 08/11/17 08:59 Hydralazine HCl (Apresoline) 25 mg PO TID [facility] Stop: 08/09/17 20:59 Last Admin: 06/11/17 21:18 Dose: Not Given Hydralazine HCl (Apresoline) 50 mg PO TID [facility] Stop: 08/10/17 20:59 Last Admin: 06/11/17 21:19 Dose: Not Given Heparin Sodium/Dextrose (Heparin Drip) 25,000 units in 250 mls @ 0 mls/hr IV TITR PRN; Protocol; Titrate PRN Reason: PROTOCOL Stop: 08/09/17 01:30 Last Admin: 06/11/17 05:16 Dose: 11 mls/hr Sodium Chloride (Nacl 0.45%) 1,000 mls @ 50 mls/hr IV .Q20H [facility] Stop: 08/10/17 18:28 Insulin Aspart (Novolog Insulin Sliding Scale) 0 units SUBQ ACHS [facility] PRN Reason: Protocol Stop: 08/09/17 07:29 Last Admin: 06/11/17 21:19 Dose: 5 units Levothyroxine Sodium (Synthroid) 0.05 mg PO QDAC [facility] Stop: 08/09/17 16:29 Last Admin: 06/11/17 06:44 Dose: 0.05 mg Ondansetron HCl (Zofran) 4 mg IV Q6H PRN PRN Reason: Nausea / Vomiting Stop: 08/08/17 22:29 Sevelamer HCl (Renagel) 800 mg PO TIDWM [facility] Stop: 08/11/17 07:59 Sodium Bicarbonate (Sodium Bicarbonate) 1,250 mg PO TID [facility] PRN Reason: Protocol Stop: 08/10/17 13:59 Last Admin: 06/11/17 21:17 Dose: 1,250 mg General: Alert Cardiovascular: Regular rate Lungs: Clear to auscultation Extremities: Other (left great toe dusky little purple) Assessment/Plan - Problem List Patient Problems: All Active Problems Abdominal pain (Acute) R10.9 Cholangitis (Acute) K83.0 DM w/o complication type II (Acute) E11.9 Gallbladder stone with nonacute cholecystitis (Acute) K80.10 HTN (hypertension) (Acute) I10 HTN (hypertension), benign (Acute) I10 Leukocytosis (Acute) D72.829 Renal mass (Acute) N28.89 - Assessment Assessment: Left great toe gangrene Diabetic foot CKD 5 HTN - Plan Plan: Case discussed with Vascular surgery DR MARSHALL who recomended to continue Heparin drip. Unable to do CT angio due to CKD 5 I had also discussed case with Nephrology on board ( DR CALDWELL) who had discussed with patient re: initiation of HD now but patient was undecided. Continue Heparin ASA Pletal and IV antibiotics. Patient understands risk related to untreated gangrene. Kiswahili speaking hospital staff was used for communication. Plan of care discussed with nursing staff Nutritional Asmnt/Malnutr-PDOC - Dietary Evaluation Malnutrition Findings (Please click <Entered> for more info): Nutritional Asmnt/Malnutrition Start: 06/10/17 14: 59 Text: Status: Complete Freq: Document 06/10/17 14:59 [facility] (Rec: 06/10/17 15:06 [facility] [email or web address]) Nutritional Asmnt/Malnutrition Patient General Information Nutritional Screening High Risk Diagnosis left foot cellulitis Pertinent Medical Hx/Surgical Hx HTN, DM, dyslipidemia Subjective Information Pt seen resting in bed, awake and alert. pt speaks Kisw[place]ili. Pt reported good appetite, consumed 100% of lunch, "small tray". Pt appeared overweigh. Current Diet Order/ Nutrition Support CCHO 60mg Pertinent Medications novolog, synthroid, vancomycin Pertinent Labs 06/10 Cl 112H, BUN 58H, Cr 4.6 , Glu 144, POC 140-183, TSH 9. 21 06/09 A1C 8.0H, glu 246 Nutritional Hx/Data Height 1.68 m Height (Calculated Centimeters) 167.6 Current Weight (lbs) 82.554 kg Weight (Calculated Kilograms) 82.6 Weight (Calculated Grams) 93226.8 Usual body Weight (lbs) 180 % Usual Body Weight 101 [place] Body Weight 142 % [place] Body Weight 128 Body Mass Index (BMI) 29.3 Weight Status Overweight GI Symptoms GI Symptoms None Difficult in: None Food Allergies No Usual diet at home eat chicken fish often, limit amount of starch, juice, milk. Skin Integrity/Comment: intact Current %PO Good (75-100%) Estimated Nutritional Goals BEE in Kcals: Using Current wt Calories/Kcals/Kg 25-30 Kcals Calculated 7087-7038 Protein: Using Current wt Protein g/k Protein Calculated 83g monitor renal labs Fluid: ml 3293-1487 Nutritional Problem 2. Problem Problem altered nutrition related lab values Etiology hx of dm Signs/Symptoms: Glu 144-246, POC 140-183 1. Problem Problem increased nutrition needs ( protein Etiology increased metabolic demand fow wound healing Signs/Symptoms: dx of cellulitis Malnutrition Alert Protein-Calorie Malnutrition N/A Is there a minimum of two criteria No selected? Query Text:Check all the applicable criteria. A minimum of two criteria are recommended for diagnosis of either severe or non-severe malnutrition. Intervention/Recommendation Comments 1. continue with current diet. pt understands diabetic diet and will follow it 2. adjust insulin as needed for optimal glycemic control 3. monitor PO intake, skin integrity, labs, wt weekly 4. F/U as moderate risk in 3-5 days, 06/13-06/15 Expected Outcomes/Goals Expected Outcomes/Goals 1. PO intake to continue > 75% to meet nutritional needs 2. glucose to improve 3. wt stability 4. skin integrity to impove
[2017-06-12 05:49] LABS: % BASOPHILS 0.5 % (0.0-2.0); % MONOCYTES 7.6 % (2.0-10.0); % NEUTROPHILS 72.9 % (40.0-80.0); HEMATOCRIT 27.6 % (41.0-60); HEMOGLOBIN 9.3 gm/dL (12-16); MEAN CORPUSCULAR HEMOGLOBIN 30.6 pg (27.0-31.0); MEAN CORPUSCULAR HGB CONC 33.7 pg (28.0-36.0); MEAN PLATELET VOLUME 9.1 fl; NEUTROPHILE ABSOLUTE 8.4 Th/cmm (1.8-8.0); PLATELET COUNT 282 Th/cmm (150-400); RED BLOOD COUNT 3.04 Mil/cmm (3.80-5.80); RED CELL DISTRIBUTION WIDTH 14.1 % (11.5-20.0); WHITE BLOOD COUNT 11.5 Th/cmm (4.8-10.8)
[2017-06-12 06:05] LABS: ANION GAP 15.2 (7.0-16.0); BILIRUBIN,TOTAL 0.4 mg/dL (0.3-1.0); BUN/CREATININE RATIO 11.6; CALCIUM SERUM 7.9 mg/dL (8.6-10.3); CARBON DIOXIDE 15.7 mEq/L (21.0-31.0); PHOSPHOROUS 5.9 mg/dL (2.5-5.0); POTASSIUM SERUM 3.9 mEq/L (3.5-5.1)
[2017-06-12] MEDS: INSULIN ASPART SLIDING SCALE 100 UNITS/ML UNIT SUBQ SCH ×4 (06:32→21:16)
[2017-06-12] MEDS: Levothyroxine 0.05 Mg Tab PO SCH (06:32)
[2017-06-12 06:41] LABS: CREATININE - SERUM 5.1 mg/dL (0.7-1.3)
[2017-06-12 08:08] LABS: IRON SATURATION 24 % (15-55); TIBC (LC) 172 ug/dL (250-450); UIBC 130 ug/dL (111-343)
[2017-06-12] MEDS: Atorvastatin Calcium 10 MG TAB PO SCH (08:15)
[2017-06-12] MEDS: Ferrous Sulfate 300 MG/5 ML UDC PO SCH ×2 (08:16→16:36)
--- NOTE | 2017-06-12 11:01 | General Progress Note ---
Subjective - Review of Systems Service Date: 06/12/17 Events since last encounter: leukocytosis persists has fecaloid drainage into conrad will culture pelvic mass (rectal) with bladder fistula limited clear liquids Objective - Results Result Diagrams: 06/12/17 05:20 06/12/17 05:20 Recent Labs: Laboratory Last Values WBC 11.5 Th/cmm (4.8-10.8) H 06/12/17 05:20 RBC 3.04 Mil/cmm (3.80-5.80) L 06/12/17 05:20 Hgb 9.3 gm/dL (12-16) L 06/12/17 05:20 Hct 27.6 % (41.0-60) L 06/12/17 05:20 MCV 91.0 fl (80-99) 06/12/17 05:20 MCH 30.6 pg (27.0-31.0) 06/12/17 05:20 MCHC Differential 33.7 pg (28.0-36.0) 06/12/17 05:20 RDW 14.1 % (11.5-20.0) 06/12/17 05:20 Plt Count 282 Th/cmm (150-400) 06/12/17 05:20 MPV 9.1 fl 06/12/17 05:20 Neutrophils % 72.9 % (40.0-80.0) 06/12/17 05:20 Lymphocytes % 16.0 % (20.0-50.0) L 06/12/17 05:20 Monocytes % 7.6 % (2.0-10.0) 06/12/17 05:20 Eosinophils % 3.0 % (0.0-5.0) 06/12/17 05:20 Basophils % 0.5 % (0.0-2.0) 06/12/17 05:20 PT 11.8 SECONDS (9.5-11.5) H 06/09/17 21:29 INR 1.12 (0.5-1.4) 06/09/17 21:29 PTT (Actin FS) 56.6 SECONDS (26.0-38.0) H 06/11/17 12:55 Sodium 136 mEq/L (136-145) 06/12/17 05:20 Potassium 3.9 mEq/L (3.5-5.1) 06/12/17 05:20 Chloride 109 mEq/L (98-107) H 06/12/17 05:20 Carbon Dioxide 15.7 mEq/L (21.0-31.0) L 06/12/17 05:20 Anion Gap 15.2 (7.0-16.0) 06/12/17 05:20 BUN 59 mg/dL (7-25) H 06/12/17 05:20 Creatinine 5.1 mg/dL (0.7-1.3) H* 06/12/17 05:20 Est GFR ( Amer) 14.6 ml/min (>90) 06/12/17 05:20 Est GFR (Non-Af Amer) 12.0 ml/min 06/12/17 05:20 BUN/Creatinine Ratio 11.6 06/12/17 05:20 Glucose 97 mg/dL (70-105) D 06/12/17 05:20 POC Glucose 92 MG/DL (70 - 105) 06/12/17 05:33 Hemoglobin A1c % 8.0 % (4.0-6.0) H 06/09/17 21:29 Whole Bld Lactic Acid 1.27 mmol/L (0.60-1.99) 06/09/17 21:29 Calcium 7.9 mg/dL (8.6-10.3) L 06/12/17 05:20 Phosphorus 5.9 mg/dL (2.5-5.0) H 06/12/17 05:20 Magnesium 1.6 mg/dL (1.9-2.7) L 06/11/17 05:46 Iron 42 ug/dL (38-169) 06/11/17 05:46 TIBC 172 ug/dL (250-450) L 06/11/17 05:46 Iron Saturation 24 % (15-55) 06/11/17 05:46 Unsaturated IBC 130 ug/dL (111-343) 06/11/17 05:46 Total Bilirubin 0.4 mg/dL (0.3-1.0) 06/12/17 05:20 AST 9 U/L (13-39) L 06/12/17 05:20 ALT 5 U/L (7-52) L 06/12/17 05:20 Alkaline Phosphatase 24 U/L (34-104) L 06/12/17 05:20 Creatine Kinase 218 U/L (30-223) 06/09/17 21:29 Troponin I 0.03 ng/mL (0.01-0.05) 06/10/17 15:12 Total Protein 6.4 gm/dL (6.0-8.3) 06/12/17 05:20 Albumin 3.2 gm/dL (4.2-5.5) L 06/12/17 05:20 Globulin 3.2 gm/dL 06/12/17 05:20 Albumin/Globulin Ratio 1.0 (1.0-1.8) 06/12/17 05:20 Triglycerides 190 mg/dL (<150) H 06/11/17 05:46 Cholesterol 212 mg/dL (<200) H 06/11/17 05:46 LDL Cholesterol Direct 176 mg/dL (75-193) 06/11/17 05:46 HDL Cholesterol 27 mg/dL (23-92) 06/11/17 05:46 TSH 5.61 uIU/ml (0.34-5.60) H 06/11/17 05:46 Urine Source MIDSTREAM 06/09/17 23:35 Urine Color YELLOW 06/09/17 23:35 Urine Clarity CLEAR (CLEAR) 06/09/17 23:35 Urine pH 5.5 (4.6 - 8.0) 06/09/17 23:35 Ur Specific [place] 1.020 (1.005-1.030) 06/09/17 23:35 Urine Protein 100 mg/dL (NEGATIVE) H 06/09/17 23:35 Urine Glucose (UA) 250 mg/dL (NEGATIVE) H 06/09/17 23:35 Urine Ketones NEGATIVE mg/dL (NEGATIVE) 06/09/17 23:35 Urine Blood MODERATE (NEGATIVE) H 06/09/17 23:35 Urine Nitrate NEGATIVE (NEGATIVE) 06/09/17 23:35 Urine Bilirubin NEGATIVE (NEGATIVE) 06/09/17 23:35 Urine Urobilinogen 0.2 E.U./dL (0.2 - 1.0) 06/09/17 23:35 Ur Leukocyte Esterase NEGATIVE (NEGATIVE) 06/09/17 23:35 Urine RBC 5-10 /hpf (0-5) H 06/09/17 23:35 Urine WBC NONE SEEN /hpf (0-5) 06/09/17 23:35 Ur Epithelial Cells NONE SEEN /lpf (FEW) 06/09/17 23:35 Urine Bacteria NONE SEEN /hpf (NONE SEEN) 06/09/17 23:35 Random Vancomycin 18.5 ug/mL (5.0-40.0) 06/11/17 05:46 - Physical Exam Vitals and I&O: Vital Signs Temp 98.1 F 06/12/17 09:19 Pulse 72 06/12/17 09:19 Resp 17 06/12/17 09:19 BP 134/44 06/12/17 09:19 Pulse Ox 97 06/12/17 09:19 Intake & Output 06/11/17 06/12/17 06/12/17 18:59 06:59 18:59 Intake Total 982.5 200 Output Total 400 Balance 982.5 -200 Weight (lbs) 83.461 kg Intake: Intake, IV Amount 982.5 Sodium Chloride 0.45% 1, 982.5 000 ml @ 75 mls/hr IV . [id number] [facility] Rx#:[id number] Oral 200 Output: Urine 400 Stool 0 Other: # Voids 2 # Bowel Movements 0 Active Medications: Current Medications Acetaminophen (Tylenol Extra Strength) 500 mg PO Q4H PRN PRN Reason: Pain or Fever >101 Stop: 08/08/17 22:44 Acetaminophen/Hydrocodone Bitart ([place] 5mg/325mg) 1 tab PO Q6H PRN PRN Reason: Pain (Severe) Stop: 08/08/17 22:28 Amlodipine Besylate (Norvasc) 10 mg PO DAILY [facility] Stop: 08/09/17 14:14 Last Admin: 06/12/17 08:12 Dose: Not Given Atorvastatin Calcium (Lipitor) 20 mg PO DAILY [facility] PRN Reason: Protocol Stop: 08/09/17 14:59 Last Admin: 06/12/17 08:15 Dose: Not Given Calcitriol (Rocaltrol) 0.25 mcg PO DAILY [facility] Stop: 08/11/17 08:59 Last Admin: 06/12/17 08:16 Dose: Not Given Cilostazol (Pletal) 50 mg PO BID [facility] Stop: 08/09/17 16:59 Last Admin: 06/12/17 08:16 Dose: Not Given Clonidine HCl (Iegcupet-Hly-3) 1 patch TD Th [facility] Stop: 08/09/17 14:14 Last Admin: 06/10/17 15:09 Dose: Not Given Epoetin Drake (Epogen) 10,000 units SUBQ MoWeFr [facility] Stop: 08/10/17 17:29 Ferrous Sulfate (Iron) 300 mg PO BID [facility] Stop: 08/11/17 08:59 Last Admin: 06/12/17 08:16 Dose: Not Given Folic Acid (Folate) 1 mg PO DAILY [facility] Stop: 08/11/17 08:59 Last Admin: 06/12/17 08:16 Dose: Not Given Heparin Sodium (Porcine) (Heparin) 5,000 units SUBQ X1 ONE Stop: 06/12/17 10:37 Hydralazine HCl (Apresoline) 25 mg PO TID [facility] Stop: 08/09/17 20:59 Last Admin: 06/12/17 08:16 Dose: Not Given Hydralazine HCl (Apresoline) 50 mg PO TID [facility] Stop: 08/10/17 20:59 Last Admin: 06/12/17 08:16 Dose: Not Given Heparin Sodium/Dextrose (Heparin Drip) 25,000 units in 250 mls @ 0 mls/hr IV TITR PRN; Protocol; Titrate PRN Reason: PROTOCOL Stop: 08/09/17 01:30 Last Admin: 06/11/17 05:16 Dose: 11 mls/hr Sodium Chloride (Nacl 0.45%) 1,000 mls @ 50 mls/hr IV .Q20H [facility] Stop: 08/10/17 18:28 Last Admin: 06/11/17 18:48 Dose: 50 mls/hr Insulin Aspart (Novolog Insulin Sliding Scale) 0 units SUBQ ACHS [facility] PRN Reason: Protocol Stop: 08/09/17 07:29 Last Admin: 06/12/17 06:32 Dose: Not Given Levothyroxine Sodium (Synthroid) 0.05 mg PO QDAC [facility] Stop: 08/09/17 16:29 Last Admin: 06/12/17 06:32 Dose: 0.05 mg Ondansetron HCl (Zofran) 4 mg IV Q6H PRN PRN Reason: Nausea / Vomiting Stop: 08/08/17 22:29 Sevelamer HCl (Renagel) 800 mg PO TIDWM [facility] Stop: 08/11/17 07:59 Last Admin: 06/12/17 08:12 Dose: Not Given Sodium Bicarbonate (Sodium Bicarbonate) 1,250 mg PO TID [facility] PRN Reason: Protocol Stop: 08/10/17 13:59 Last Admin: 06/12/17 08:17 Dose: Not Given General: Alert Cardiovascular: Regular rate Lungs: Clear to auscultation Extremities: Other (left great toe dusky little purple) Assessment/Plan - Problem List Patient Problems: All Active Problems Abdominal pain (Acute) R10.9 Cholangitis (Acute) K83.0 DM w/o complication type II (Acute) E11.9 Gallbladder stone with nonacute cholecystitis (Acute) K80.10 HTN (hypertension) (Acute) I10 HTN (hypertension), benign (Acute) I10 Leukocytosis (Acute) D72.829 Renal mass (Acute) N28.89 Nutritional Asmnt/Malnutr-PDOC - Dietary Evaluation Malnutrition Findings (Please click <Entered> for more info): Nutritional Asmnt/Malnutrition Start: 06/10/17 14: 59 Text: Status: Complete Freq: Document 06/10/17 14:59 [facility] (Rec: 06/10/17 15:06 [facility] [email or web address]) Nutritional Asmnt/Malnutrition Patient General Information Nutritional Screening High Risk Diagnosis left foot cellulitis Pertinent Medical Hx/Surgical Hx HTN, DM, dyslipidemia Subjective Information Pt seen resting in bed, awake and alert. pt speaks [place]. Pt reported good appetite, consumed 100% of lunch, "small tray". Pt appeared overweigh. Current Diet Order/ Nutrition Support CCHO 60mg Pertinent Medications novolog, synthroid, vancomycin Pertinent Labs 06/10 Cl 112H, BUN 58H, Cr 4.6 , Glu 144, POC 140-183, TSH 9. 21 06/09 A1C 8.0H, glu 246 Nutritional Hx/Data Height 1.68 m Height (Calculated Centimeters) 167.6 Current Weight (lbs) 82.554 kg Weight (Calculated Kilograms) 82.6 Weight (Calculated Grams) 20790.8 Usual body Weight (lbs) 180 % Usual Body Weight 101 [place] Body Weight 142 % [place] Body Weight 128 Body Mass Index (BMI) 29.3 Weight Status Overweight GI Symptoms GI Symptoms None Difficult in: None Food Allergies No Usual diet at home eat chicken fish often, limit amount of starch, juice, milk. Skin Integrity/Comment: intact Current %PO Good (75-100%) Estimated Nutritional Goals BEE in Kcals: Using Current wt Calories/Kcals/Kg 25-30 Kcals Calculated 6638-2110 Protein: Using Current wt Protein g/k Protein Calculated 83g monitor renal labs Fluid: ml Nutritional Problem 2. Problem Problem altered nutrition related lab values Etiology hx of dm Signs/Symptoms: Glu 144-246, POC 140-183 1. Problem Problem increased nutrition needs ( protein Etiology increased metabolic demand fow wound healing Signs/Symptoms: dx of cellulitis Malnutrition Alert Protein-Calorie Malnutrition N/A Is there a minimum of two criteria No selected? Query Text:Check all the applicable criteria. A minimum of two criteria are recommended for diagnosis of either severe or non-severe malnutrition. Intervention/Recommendation Comments 1. continue with current diet. pt understands diabetic diet and will follow it 2. adjust insulin as needed for optimal glycemic control 3. monitor PO intake, skin integrity, labs, wt weekly 4. F/U as moderate risk in 3-5 days, 06/13-06/15 Expected Outcomes/Goals Expected Outcomes/Goals 1. PO intake to continue > 75% to meet nutritional needs 2. glucose to improve 3. wt stability 4. skin integrity to impove
[2017-06-12 13:09] LABS: SURFACE AREA 1.93
--- NOTE | 2017-06-12 14:24 | General Progress Note ---
Subjective - Review of Systems Service Date: 06/12/17 Subjective: Patient seen and examined patient decided to have HD started. Being dialyzed now Plan is to have CT angio lower leg tomorrow Objective - Results Result Diagrams: 06/12/17 05:20 06/12/17 09:00 Recent Labs: Laboratory Last Values WBC 11.5 Th/cmm (4.8-10.8) H 06/12/17 05:20 RBC 3.04 Mil/cmm (3.80-5.80) L 06/12/17 05:20 Hgb 9.3 gm/dL (12-16) L 06/12/17 05:20 Hct 27.6 % (41.0-60) L 06/12/17 05:20 MCV 91.0 fl (80-99) 06/12/17 05:20 MCH 30.6 pg (27.0-31.0) 06/12/17 05:20 MCHC Differential 33.7 pg (28.0-36.0) 06/12/17 05:20 RDW 14.1 % (11.5-20.0) 06/12/17 05:20 Plt Count 282 Th/cmm (150-400) 06/12/17 05:20 MPV 9.1 fl 06/12/17 05:20 Neutrophils % 72.9 % (40.0-80.0) 06/12/17 05:20 Lymphocytes % 16.0 % (20.0-50.0) L 06/12/17 05:20 Monocytes % 7.6 % (2.0-10.0) 06/12/17 05:20 Eosinophils % 3.0 % (0.0-5.0) 06/12/17 05:20 Basophils % 0.5 % (0.0-2.0) 06/12/17 05:20 PT 11.8 SECONDS (9.5-11.5) H 06/09/17 21:29 INR 1.12 (0.5-1.4) 06/09/17 21:29 PTT (Actin FS) 56.6 SECONDS (26.0-38.0) H 06/11/17 12:55 Sodium 136 mEq/L (136-145) 06/12/17 05:20 Potassium 3.9 mEq/L (3.5-5.1) 06/12/17 05:20 Chloride 109 mEq/L (98-107) H 06/12/17 05:20 Carbon Dioxide 15.7 mEq/L (21.0-31.0) L 06/12/17 05:20 Anion Gap 15.2 (7.0-16.0) 06/12/17 05:20 BUN 59 mg/dL (7-25) H 06/12/17 05:20 Creatinine 5.1 mg/dL (0.7-1.3) H 06/12/17 09:00 Est GFR ( Amer) 14.6 ml/min (>90) 06/12/17 05:20 Est GFR (Non-Af Amer) 12.0 ml/min 06/12/17 05:20 BUN/Creatinine Ratio 11.6 06/12/17 05:20 Glucose 97 mg/dL (70-105) D 06/12/17 05:20 POC Glucose 138 MG/DL (70 - 105) H 06/12/17 11:29 Hemoglobin A1c % 8.0 % (4.0-6.0) H 06/09/17 21:29 Whole Bld Lactic Acid 1.27 mmol/L (0.60-1.99) 06/09/17 21:29 Calcium 7.9 mg/dL (8.6-10.3) L 06/12/17 05:20 Phosphorus 5.9 mg/dL (2.5-5.0) H 06/12/17 05:20 Magnesium 1.6 mg/dL (1.9-2.7) L 06/11/17 05:46 Iron 42 ug/dL (38-169) 06/11/17 05:46 TIBC 172 ug/dL (250-450) L 06/11/17 05:46 Iron Saturation 24 % (15-55) 06/11/17 05:46 Unsaturated IBC 130 ug/dL (111-343) 06/11/17 05:46 Total Bilirubin 0.4 mg/dL (0.3-1.0) 06/12/17 05:20 AST 9 U/L (13-39) L 06/12/17 05:20 ALT 5 U/L (7-52) L 06/12/17 05:20 Alkaline Phosphatase 24 U/L (34-104) L 06/12/17 05:20 Creatine Kinase 218 U/L (30-223) 06/09/17 21:29 Troponin I 0.03 ng/mL (0.01-0.05) 06/10/17 15:12 Total Protein 6.4 gm/dL (6.0-8.3) 06/12/17 05:20 Albumin 3.2 gm/dL (4.2-5.5) L 06/12/17 05:20 Globulin 3.2 gm/dL 06/12/17 05:20 Albumin/Globulin Ratio 1.0 (1.0-1.8) 06/12/17 05:20 Triglycerides 190 mg/dL (<150) H 06/11/17 05:46 Cholesterol 212 mg/dL (<200) H 06/11/17 05:46 LDL Cholesterol Direct 176 mg/dL (75-193) 06/11/17 05:46 HDL Cholesterol 27 mg/dL (23-92) 06/11/17 05:46 TSH 5.61 uIU/ml (0.34-5.60) H 06/11/17 05:46 Urine Source MIDSTREAM 06/09/17 23:35 Urine Color YELLOW 06/09/17 23:35 Urine Clarity CLEAR (CLEAR) 06/09/17 23:35 Urine pH 5.5 (4.6 - 8.0) 06/09/17 23:35 Ur Specific [place] 1.020 (1.005-1.030) 06/09/17 23:35 Urine Protein 100 mg/dL (NEGATIVE) H 06/09/17 23:35 Urine Glucose (UA) 250 mg/dL (NEGATIVE) H 06/09/17 23:35 Urine Ketones NEGATIVE mg/dL (NEGATIVE) 06/09/17 23:35 Urine Blood MODERATE (NEGATIVE) H 06/09/17 23:35 Urine Nitrate NEGATIVE (NEGATIVE) 06/09/17 23:35 Urine Bilirubin NEGATIVE (NEGATIVE) 06/09/17 23:35 Urine Urobilinogen 0.2 E.U./dL (0.2 - 1.0) 06/09/17 23:35 Ur Leukocyte Esterase NEGATIVE (NEGATIVE) 06/09/17 23:35 Urine RBC 5-10 /hpf (0-5) H 06/09/17 23:35 Urine WBC NONE SEEN /hpf (0-5) 06/09/17 23:35 Ur Epithelial Cells NONE SEEN /lpf (FEW) 06/09/17 23:35 Urine Bacteria NONE SEEN /hpf (NONE SEEN) 06/09/17 23:35 U Random Total Protein 98.0 mg/dL 06/12/17 09:00 Urine Collection Time 24 hours 06/12/17 09:00 Urine Total Volume 1000 ml 06/12/17 09:00 Urine Creatinine 98.0 mg/dl (39.0-259.0) 06/12/17 09:00 Creat Clearance 24 Hr 12 ml/min (97.00-137.00) L 06/12/17 09:00 U Tot Protein 24h, Calc 980.0 mg/24 hr (0-165) H 06/12/17 09:00 Body Surface Area 1.93 06/12/17 09:00 Random Vancomycin 18.5 ug/mL (5.0-40.0) 06/11/17 05:46 - Physical Exam Vitals and I&O: Vital Signs Temp 98.1 F 06/12/17 09:19 Pulse 72 06/12/17 09:19 Resp 17 06/12/17 12:27 BP 134/44 06/12/17 09:19 Pulse Ox 97 06/12/17 09:19 Intake & Output 06/11/17 06/12/17 06/12/17 18:59 06:59 18:59 Intake Total 982.5 200 Output Total 400 Balance 982.5 -200 Weight (lbs) 83.461 kg Intake: Intake, IV Amount 982.5 Sodium Chloride 0.45% 1, 982.5 000 ml @ 75 mls/hr IV . [id number] [facility] Rx#:[id number] Oral 200 Output: Urine 400 Stool 0 Other: # Voids 2 # Bowel Movements 0 Active Medications: Current Medications Acetaminophen (Tylenol Extra Strength) 500 mg PO Q4H PRN PRN Reason: Pain or Fever >101 Stop: 08/08/17 22:44 Acetaminophen/Hydrocodone Bitart ([place] 5mg/325mg) 1 tab PO Q6H PRN PRN Reason: Pain (Severe) Stop: 08/08/17 22:28 Amlodipine Besylate (Norvasc) 10 mg PO DAILY [facility] Stop: 08/09/17 14:14 Last Admin: 06/12/17 08:12 Dose: Not Given Atorvastatin Calcium (Lipitor) 20 mg PO DAILY [facility] PRN Reason: Protocol Stop: 08/09/17 14:59 Last Admin: 06/12/17 08:15 Dose: Not Given Calcitriol (Rocaltrol) 0.25 mcg PO DAILY [facility] Stop: 08/11/17 08:59 Last Admin: 06/12/17 08:16 Dose: Not Given Cilostazol (Pletal) 50 mg PO BID [facility] Stop: 08/09/17 16:59 Last Admin: 06/12/17 08:16 Dose: Not Given Clonidine HCl (Xykdlaku-Cub-0) 1 patch TD Th [facility] Stop: 08/09/17 14:14 Last Admin: 06/10/17 15:09 Dose: Not Given Epoetin Drake (Epogen) 10,000 units SUBQ MoWeFr [facility] Stop: 08/10/17 17:29 Ferrous Sulfate (Iron) 300 mg PO BID [facility] Stop: 08/11/17 08:59 Last Admin: 06/12/17 08:16 Dose: Not Given Folic Acid (Folate) 1 mg PO DAILY [facility] Stop: 08/11/17 08:59 Last Admin: 06/12/17 08:16 Dose: Not Given Hydralazine HCl (Apresoline) 25 mg PO TID [facility] Stop: 08/09/17 20:59 Last Admin: 06/12/17 13:44 Dose: Not Given Hydralazine HCl (Apresoline) 50 mg PO TID [facility] Stop: 08/10/17 20:59 Last Admin: 06/12/17 13:44 Dose: Not Given Heparin Sodium/Dextrose (Heparin Drip) 25,000 units in 250 mls @ 0 mls/hr IV TITR PRN; Protocol; Titrate PRN Reason: PROTOCOL Stop: 08/09/17 01:30 Last Admin: 06/11/17 05:16 Dose: 11 mls/hr Sodium Chloride (Nacl 0.45%) 1,000 mls @ 50 mls/hr IV .Q20H [facility] Stop: 08/10/17 18:28 Last Admin: 06/11/17 18:48 Dose: 50 mls/hr Insulin Aspart (Novolog Insulin Sliding Scale) 0 units SUBQ ACHS TERA PRN Reason: Protocol Stop: 08/09/17 07:29 Last Admin: 06/12/17 13:40 Dose: Not Given Levothyroxine Sodium (Synthroid) 0.05 mg PO QDAC [facility] Stop: 08/09/17 16:29 Last Admin: 06/12/17 06:32 Dose: 0.05 mg Ondansetron HCl (Zofran) 4 mg IV Q6H PRN PRN Reason: Nausea / Vomiting Stop: 08/08/17 22:29 Sevelamer HCl (Renagel) 800 mg PO TIDWM [facility] Stop: 08/11/17 07:59 Last Admin: 06/12/17 13:41 Dose: Not Given Sodium Bicarbonate (Sodium Bicarbonate) 1,250 mg PO TID TERA PRN Reason: Protocol Stop: 08/10/17 13:59 Last Admin: 06/12/17 13:44 Dose: Not Given General: Alert Cardiovascular: Regular rate Lungs: Clear to auscultation Extremities: Other (left great toe dusky little purple) Assessment/Plan - Problem List Patient Problems: All Active Problems Abdominal pain (Acute) R10.9 Cholangitis (Acute) K83.0 DM w/o complication type II (Acute) E11.9 Gallbladder stone with nonacute cholecystitis (Acute) K80.10 HTN (hypertension) (Acute) I10 HTN (hypertension), benign (Acute) I10 Leukocytosis (Acute) D72.829 Renal mass (Acute) N28.89 - Assessment Assessment: Left great toe gangrene 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 now HTN - Plan Plan: HD CT Angio lower ext Monitor vitals Plan of care discussed with nursing staff Nutritional Asmnt/Malnutr-PDOC - Dietary Evaluation Malnutrition Findings (Please click <Entered> for more info): Nutritional Asmnt/Malnutrition Start: 06/10/17 14: 59 Text: Status: Complete Freq: Document 06/10/17 14:59 FRANKLIN (Rec: 06/10/17 15:06 FRANKLIN [email or web address]) Nutritional Asmnt/Malnutrition Patient General Information Nutritional Screening High Risk Diagnosis left foot cellulitis Pertinent Medical Hx/Surgical Hx HTN, DM, dyslipidemia Subjective Information Pt seen resting in bed, awake and alert. pt speaks Finnish. Pt reported good appetite, consumed 100% of lunch, "small tray". Pt appeared overweigh. Current Diet Order/ Nutrition Support CCHO 60mg Pertinent Medications novolog, synthroid, vancomycin Pertinent Labs 06/10 Cl 112H, BUN 58H, Cr 4.6 , Glu 144, POC 140-183, TSH 9. 21 06/09 A1C 8.0H, glu 246 Nutritional Hx/Data Height 1.68 m Height (Calculated Centimeters) 167.6 Current Weight (lbs) 82.554 kg Weight (Calculated Kilograms) 82.6 Weight (Calculated Grams) 31236.8 Usual body Weight (lbs) 180 % Usual Body Weight 101 [place] Body Weight 142 % [place] Body Weight 128 Body Mass Index (BMI) 29.3 Weight Status Overweight GI Symptoms GI Symptoms None Difficult in: None Food Allergies No Usual diet at home eat chicken fish often, limit amount of starch, juice, milk. Skin Integrity/Comment: intact Current %PO Good (75-100%) Estimated Nutritional Goals BEE in Kcals: Using Current wt Calories/Kcals/Kg 25-30 Kcals Calculated 2942-6624 Protein: Using Current wt Protein g/k Protein Calculated 83g monitor renal labs Fluid: ml 1742-4636 Nutritional Problem 2. Problem Problem altered nutrition related lab values Etiology hx of dm Signs/Symptoms: Glu 144-246, POC 140-183 1. Problem Problem increased nutrition needs ( protein Etiology increased metabolic demand fow wound healing Signs/Symptoms: dx of cellulitis Malnutrition Alert Protein-Calorie Malnutrition N/A Is there a minimum of two criteria No selected? Query Text:Check all the applicable criteria. A minimum of two criteria are recommended for diagnosis of either severe or non-severe malnutrition. Intervention/Recommendation Comments 1. continue with current diet. pt understands diabetic diet and will follow it 2. adjust insulin as needed for optimal glycemic control 3. monitor PO intake, skin integrity, labs, wt weekly 4. F/U as moderate risk in 3-5 days, 06/13-06/15 Expected Outcomes/Goals Expected Outcomes/Goals 1. PO intake to continue > 75% to meet nutritional needs 2. glucose to improve 3. wt stability 4. skin integrity to impove
[2017-06-12] MEDS ORDERED: Heparin Sod 1,000 Units/mL 10ml HD ONE (15:20)
[2017-06-12] MEDS ORDERED: Heparin Sodium 1,000 Units/mL Vial HD PRN ×2 (15:28→15:48)
--- NOTE | 2017-06-12 16:12 | Operative Report ---
DATE OF SURGERY: 06/12/2017 PREOPERATIVE DIAGNOSES: 1. Acute renal failure. 2. Peripheral vascular disease with ischemic left foot. POSTOPERATIVE DIAGNOSES: 1. Acute renal failure. 2. Peripheral vascular disease with ischemic left foot. OPERATION DONE: Insertion of John catheter, right subclavian vein under ultrasound guidance. INDICATIONS FOR PROCEDURE: Informed consent discussed with the patient via nurse healthcare interpreter. DESCRIPTION OF PROCEDURE: The right chest was prepped with ChloraPrep and draped in appropriate manner. Lidocaine 1% was infiltrated in the infraclavicular portion of the chest wall. An incision was made and a size 18 needle was used to locate the vein. Guide was inserted, the dilator and then the triple lumen catheter. Anchored to chest wall with 3-0 silk. Portable chest x-ray is ordered. JOB# [id number]
--- NOTE | 2017-06-12 17:19 | Consultation ---
DATE OF CONSULTATION: RENAL CONSULT LOCATION: [facility], room #14, bed 1. ATTENDING PHYSICIAN: Dr. Aureliano Nguyen Thank you very much, Dr. Nguyen for allowing me to participate in the management of this patient of yours. INDICATIONS: This is a 66-year-old male patient, conscious, alert, [place] speaking. History has been taken through material worker. HISTORY OF PRESENT ILLNESS: This is a 66-year-old male patient who is known case of diabetes mellitus for almost 20+ years, history of hypertension, hyperlipidemia, obesity. The patient also is a known case of CKD. The patient is being followed at [facility] and he has been told that he needs dialysis. The patient in fact is scheduled for AV fistula surgery on the left upper extremity on 07/14/2017 as an outpatient. Few months ago, the patient started swelling up and at that time, he was started on some diuretic with improvement. The patient for the last about 7 days, has pain, discoloration of the left big toe and the other toes. The patient came to the Emergency Room at [facility] and was found to have decreased to absent dorsalis pedis on the left lower extremity, cellulitis of the left toe, severe renal failure, anemia, acidosis and hence the patient has been admitted. Renal consultation has been requested. Meanwhile, the patient has been started on IV heparin and IV antibiotic. The patient has been seen by glory hole tender, infectious disease technology sales consultant and vascular surgeon. The patient states that he is a known case of diabetic retinopathy. He has multiple laser treatments. His diabetes is not very well controlled for a long time. He denies chest pain. His shortness of breath has improved. Denies any vomiting but does have nausea and chronic anorexia. The patient complains of weakness and fatigue. The patient does not have diarrhea or constipation. The patient states that he has been told that he is anemic also. He has been supposed to be on a renal diet, but he has difficulty following this diet. SOCIAL HISTORY: No history of alcoholism or smoking. The patient has 3 children, all grown up and gone. He is and lives with his . 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 He states that the patient does not take any illicit drug. PAST MEDICAL AND SURGICAL HISTORY: Diabetes mellitus, hypertension, obesity, hyperlipidemia, diabetic nephropathy, diabetic retinopathy, peripheral vascular disease, and anemia. [facility]# [id number]
--- NOTE | 2017-06-12 17:34 | Consultation ---
DATE OF CONSULTATION: ADDENDUM PHYSICAL EXAMINATION: GENERAL: A 66-year-old male patient, conscious, alert, complained of pain on the left lower extremity. VITAL SIGNS: Temperature 97.6, pulse 64, blood pressure 167/65, respirations 19. Intake and output not available. HEENT: Head normocephalic, atraumatic. Eyes, sclerae is nonicteric. Conjunctivae are pale. Pupils reactive. Ear, nose, throat: No bleeding, discharge or ulcer. NECK: No stiffness. Jugular venous pressure normal. No carotid bruit. LUNGS: Good air entry. No rales or rhonchi. CARDIOVASCULAR: Heart regular. [place] in the sixth intercostal space outside the midclavicular line. ABDOMEN: Soft, nontender, bowel sounds present. No organomegaly or bruit. No suprapubic fullness. No flank tenderness. EXTREMITIES: Trace edema ankle area. Dorsalis pedis diminished both sides. Left toe severe cellulitis. SIGNIFICANT LABORATORY DATA: Hemoglobin 9.8, WBC 10.8, platelet 258,000. Sodium 135, potassium 3.9, chloride 108, CO2 16, BUN 59, creatinine 4.8, EGFR 12.9, calcium 8.0, phosphorus 6, albumin 3.2. Triglyceride, cholesterol elevated. TSH elevated. Urinalysis: Protein positive. Ketone negative. Nitrite negative. ASSESSMENT: A 66-year-old male patient with: 1. CKD 5. 2. Anemia secondary to CKD. 3. Diabetes mellitus. 4. Hypertension. 5. Peripheral vascular disease. 6. Obesity. 7. Obstructive sleep apnea. 8. Hyperlipidemia. 9. Diabetic nephropathy. 10. Diabetic retinopathy. 11. Left big toe cellulitis. PLAN: Start the patient on renal ADA diet 1600 calorie diet. Start IV hydration. Hold Cozaar. Hold Lasix. Obtain kidney ultrasound. Start the patient on phosphate binder, ferrous sulfate, folic acid. Start the patient on Epogen subcu. A deep left upper extremity without any venipuncture or ____. Need to start the patient on dialysis. Has been discussed with the patient complication, need, alternate treatment, advantage, disadvantage all discussed with the patient. He is going to think about it. I also told the patient that if he needs any dye study, then he has a very good chance of worsening his kidney function. He has been already scheduled to have a fistula on the left upper extremity, so dialysis is coming anyway, but at this time, it is really very important to investigate his circulation problem on the lower extremity to save his lower extremity, left side. All this has been discussed at length. Total time spent on this patient is about 100 minutes. The patient is going to think about it and he will let me know by tonight or tomorrow. I have told him that once he proceeds with his decision to start dialysis, I will put a temporary John catheter with triple lumen and once he stabilizes, we will do angiogram and then we will subject him for left upper extremity AV fistula. Once again, all question have been answered. JOB# [id number]
--- NOTE | 2017-06-12 21:17 | Progress Notes ---
DATE: LOCATION: [facility], room #14, bed 1. HISTORY OF PRESENT ILLNESS: The patient is conscious, alert. The patient underwent right subclavian John catheter placement by Dr. Mtz this morning. The patient has 2 hours of dialysis today, which he tolerated well. The patient complains of mild pain at the John insertion site. Denies chest pain, shortness of breath, nausea, vomiting. The patient seems to be more alert and more cheerful today. He is joking around today, which he was not able to do yesterday. OBJECTIVE: VITAL SIGNS: Blood pressure 195/72, pulse 77, respirations 16, temperature 98.1. Yesterday's intake 1154, output 400. HEART: Regular. LUNGS: Good air entry. ABDOMEN: Soft. EXTREMITIES: Trace edema. LABORATORY DATA: WBC 11.5, hemoglobin 9.3. Sodium 136, potassium 3.9, chloride 109, CO2 15, creatinine 5.1, EGFR 12, phosphorus 5.9, calcium 7.9, creatinine clearance by 24-hour urine 12 mL, protein 980 mg. ASSESSMENT: 1. CKD 5 on chronic hemodialysis now. 2. Diabetes mellitus. 3. Hypertension. 4. Anemia secondary to CKD. 5. Peripheral vascular disease. 6. Obesity. 7. Hyperlipidemia. 8. Diabetic retinopathy. 9. Left toes cellulitis. PLAN: We will continue the patient on Epogen, Rocaltrol, phosphate binder. Case has been discussed with Dr. Nguyen and the patient at length. The patient will require bilateral lower extremity angiogram tomorrow followed by dialysis tomorrow. Depends upon the angiogram report, we will decide further course of treatment. The patient will be placed on a renal diet and increase phosphate binder. All questions have been answered. We will arrange for outpatient dialysis on Wednesday that is day after tomorrow. JOB# [id number]
[2017-06-12] MEDS: Hydrocodone/APAP 5mg/325mg Tab PO PRN (21:24)
[2017-06-13 05:46] LABS: % BASOPHILS 0.8 % (0.0-2.0); % EOSINOPHILS 2.5 % (0.0-5.0); % LYMPHOCYTES 23.5 % (20.0-50.0); % NEUTROPHILS 63.2 % (40.0-80.0); HEMATOCRIT 26.9 % (41.0-60); MEAN CELL VOLUME 90.9 fl (80-99); MEAN CORPUSCULAR HEMOGLOBIN 30.3 pg (27.0-31.0); MEAN CORPUSCULAR HGB CONC 33.3 pg (28.0-36.0); MEAN PLATELET VOLUME 8.9 fl; NEUTROPHILE ABSOLUTE 5.8 Th/cmm (1.8-8.0); PLATELET COUNT 226 Th/cmm (150-400); RED BLOOD COUNT 2.96 Mil/cmm (3.80-5.80); RED CELL DISTRIBUTION WIDTH 14.2 % (11.5-20.0)
[2017-06-13 05:49] LABS: WHITE BLOOD COUNT 9.1 Th/cmm (4.8-10.8)
[2017-06-13 06:28] LABS: ANION GAP 11.4 (7.0-16.0); BUN/CREATININE RATIO 9.5; CALCIUM SERUM 7.9 mg/dL (8.6-10.3); CARBON DIOXIDE 26.1 mEq/L (21.0-31.0); CREATININE - SERUM 3.7 mg/dL (0.7-1.3); POTASSIUM SERUM 3.5 mEq/L (3.5-5.1)
[2017-06-13] MEDS: INSULIN ASPART SLIDING SCALE 100 UNITS/ML UNIT SUBQ SCH ×4 (06:50→23:02)
[2017-06-13 08:09] LABS: IRON SATURATION 21 % (15-55); TIBC (LC) 210 ug/dL (250-450); UIBC 166 ug/dL (111-343)
[2017-06-13] MEDS: Ferrous Sulfate 300 MG/5 ML UDC PO SCH ×2 (08:45→17:44)
[2017-06-13] MEDS: Atorvastatin Calcium 10 MG TAB PO SCH (08:45)
--- NOTE | 2017-06-13 08:59 | Diagnostic Imaging Report ---
Portable chest x-ray HISTORY: Vascular catheter placement Compared with prior exam of June 09, 2017, a right-sided vascular catheter is been inserted. The tip is in the region of the superior vena cava. No focal pulmonary processes. The heart appears to be somewhat enlarged. IMPRESSION: 1. Vascular catheter placement as noted above 2. No focal pulmonary processes 3. Suggestion of cardiomegaly
[2017-06-13 09:11] LABS: HEP B CORE IGM Negative (Negative)
[2017-06-13] MEDS: Levothyroxine 0.05 Mg Tab PO SCH (11:49)
--- NOTE | 2017-06-13 12:22 | General Progress Note ---
Subjective - Review of Systems Service Date: 06/13/17 Events since last encounter: for possible transfer to [facility] in AM forCTA /angioplasty/stent if needed doubt this can be done with insurance Objective - Results Result Diagrams: 06/13/17 05:30 06/13/17 05:30 Recent Labs: Laboratory Last Values WBC 9.1 Th/cmm (4.8-10.8) D 06/13/17 05:30 RBC 2.96 Mil/cmm (3.80-5.80) L 06/13/17 05:30 Hgb 9.0 gm/dL (12-16) L 06/13/17 05:30 Hct 26.9 % (41.0-60) L 06/13/17 05:30 MCV 90.9 fl (80-99) 06/13/17 05:30 MCH 30.3 pg (27.0-31.0) 06/13/17 05:30 MCHC Differential 33.3 pg (28.0-36.0) 06/13/17 05:30 RDW 14.2 % (11.5-20.0) 06/13/17 05:30 Plt Count 226 Th/cmm (150-400) 06/13/17 05:30 MPV 8.9 fl 06/13/17 05:30 Neutrophils % 63.2 % (40.0-80.0) 06/13/17 05:30 Lymphocytes % 23.5 % (20.0-50.0) 06/13/17 05:30 Monocytes % 10.0 % (2.0-10.0) 06/13/17 05:30 Eosinophils % 2.5 % (0.0-5.0) 06/13/17 05:30 Basophils % 0.8 % (0.0-2.0) 06/13/17 05:30 PT 11.8 SECONDS (9.5-11.5) H 06/09/17 21:29 INR 1.12 (0.5-1.4) 06/09/17 21:29 PTT (Actin FS) 56.6 SECONDS (26.0-38.0) H 06/11/17 12:55 Sodium 139 mEq/L (136-145) 06/13/17 05:30 Potassium 3.5 mEq/L (3.5-5.1) 06/13/17 05:30 Chloride 105 mEq/L (98-107) 06/13/17 05:30 Carbon Dioxide 26.1 mEq/L (21.0-31.0) 06/13/17 05:30 Anion Gap 11.4 (7.0-16.0) 06/13/17 05:30 BUN 35 mg/dL (7-25) H 06/13/17 05:30 Creatinine 3.7 mg/dL (0.7-1.3) H 06/13/17 05:30 Est GFR ( Amer) 21.1 ml/min (>90) 06/13/17 05:30 Est GFR (Non-Af Amer) 17.5 ml/min 06/13/17 05:30 BUN/Creatinine Ratio 9.5 06/13/17 05:30 Glucose 120 mg/dL (70-105) H 06/13/17 05:30 POC Glucose 129 MG/DL (70 - 105) H 06/13/17 11:40 Hemoglobin A1c % 8.0 % (4.0-6.0) H 06/09/17 21:29 Whole Bld Lactic Acid 1.27 mmol/L (0.60-1.99) 06/09/17 21:29 Calcium 7.9 mg/dL (8.6-10.3) L 06/13/17 05:30 Phosphorus 5.9 mg/dL (2.5-5.0) H 06/12/17 05:20 Magnesium 1.6 mg/dL (1.9-2.7) L 06/11/17 05:46 Iron 44 ug/dL (38-169) 06/12/17 05:20 TIBC 210 ug/dL (250-450) L 06/12/17 05:20 Iron Saturation 21 % (15-55) 06/12/17 05:20 Unsaturated IBC 166 ug/dL (111-343) 06/12/17 05:20 Total Bilirubin 0.4 mg/dL (0.3-1.0) 06/12/17 05:20 AST 9 U/L (13-39) L 06/12/17 05:20 ALT 5 U/L (7-52) L 06/12/17 05:20 Alkaline Phosphatase 24 U/L (34-104) L 06/12/17 05:20 Creatine Kinase 218 U/L (30-223) 06/09/17 21:29 Troponin I 0.03 ng/mL (0.01-0.05) 06/10/17 15:12 Total Protein 6.4 gm/dL (6.0-8.3) 06/12/17 05:20 Albumin 3.2 gm/dL (4.2-5.5) L 06/12/17 05:20 Globulin 3.2 gm/dL 06/12/17 05:20 Albumin/Globulin Ratio 1.0 (1.0-1.8) 06/12/17 05:20 Triglycerides 190 mg/dL (<150) H 06/11/17 05:46 Cholesterol 212 mg/dL (<200) H 06/11/17 05:46 LDL Cholesterol Direct 176 mg/dL (75-193) 06/11/17 05:46 HDL Cholesterol 27 mg/dL (23-92) 06/11/17 05:46 TSH 5.61 uIU/ml (0.34-5.60) H 06/11/17 05:46 Urine Source MIDSTREAM 06/09/17 23:35 Urine Color YELLOW 06/09/17 23:35 Urine Clarity CLEAR (CLEAR) 06/09/17 23:35 Urine pH 5.5 (4.6 - 8.0) 06/09/17 23:35 Ur Specific [place] 1.020 (1.005-1.030) 06/09/17 23:35 Urine Protein 100 mg/dL (NEGATIVE) H 06/09/17 23:35 Urine Glucose (UA) 250 mg/dL (NEGATIVE) H 06/09/17 23:35 Urine Ketones NEGATIVE mg/dL (NEGATIVE) 06/09/17 23:35 Urine Blood MODERATE (NEGATIVE) H 06/09/17 23:35 Urine Nitrate NEGATIVE (NEGATIVE) 06/09/17 23:35 Urine Bilirubin NEGATIVE (NEGATIVE) 06/09/17 23:35 Urine Urobilinogen 0.2 E.U./dL (0.2 - 1.0) 06/09/17 23:35 Ur Leukocyte Esterase NEGATIVE (NEGATIVE) 06/09/17 23:35 Urine RBC 5-10 /hpf (0-5) H 06/09/17 23:35 Urine WBC NONE SEEN /hpf (0-5) 06/09/17 23:35 Ur Epithelial Cells NONE SEEN /lpf (FEW) 06/09/17 23:35 Urine Bacteria NONE SEEN /hpf (NONE SEEN) 06/09/17 23:35 U Random Total Protein 98.0 mg/dL 06/12/17 09:00 Urine Collection Time 24 hours 06/12/17 09:00 Urine Total Volume 1000 ml 06/12/17 09:00 Urine Creatinine 98.0 mg/dl (39.0-259.0) 06/12/17 09:00 Creat Clearance 24 Hr 12 ml/min (97.00-137.00) L 06/12/17 09:00 U Tot Protein 24h, Calc 980.0 mg/24 hr (0-165) H 06/12/17 09:00 Body Surface Area 1.93 06/12/17 09:00 Random Vancomycin 18.5 ug/mL (5.0-40.0) 06/11/17 05:46 Hepatitis A IgM Ab Negative (Negative) 06/12/17 05:50 Hep Bs Antigen Negative (Negative) 06/12/17 05:50 Hep B Core IgM Ab Negative (Negative) 06/12/17 05:50 Hepatitis C Antibody <0.1 s/co ratio (0.0-0.9) 06/12/17 05:50 - Physical Exam Vitals and I&O: Vital Signs Temp 98.3 F 06/13/17 08:00 Pulse 70 06/13/17 09:03 Resp 17 06/13/17 08:00 BP 166/73 06/13/17 09:03 Pulse Ox 94 06/13/17 08:00 Intake & Output 06/12/17 06/13/17 06/13/17 18:59 06:59 18:59 Intake Total 300 Balance 300 Weight (lbs) 81.76 kg 81.647 kg Intake: Oral 300 Other: # Bowel Movements 2 Active Medications: Current Medications Acetaminophen (Tylenol Extra Strength) 500 mg PO Q4H PRN PRN Reason: Pain or Fever >101 Stop: 08/08/17 22:44 Acetaminophen/Hydrocodone Bitart ([place] 5mg/325mg) 1 tab PO Q6H PRN PRN Reason: Pain (Severe) Stop: 08/08/17 22:28 Last Admin: 06/12/17 21:24 Dose: 1 tab Atorvastatin Calcium (Lipitor) 20 mg PO DAILY TERA PRN Reason: Protocol Stop: 08/09/17 14:59 Last Admin: 06/13/17 08:45 Dose: 20 mg Calcitriol (Rocaltrol) 0.25 mcg PO DAILY TERA Stop: 08/11/17 08:59 Last Admin: 06/13/17 08:47 Dose: 0.25 mcg Cilostazol (Pletal) 50 mg PO BID [facility] Stop: 08/09/17 16:59 Last Admin: 06/13/17 08:46 Dose: 50 mg Clonidine HCl (Mdlktdvy-Krp-0) 1 patch TD Th [facility] Stop: 08/09/17 14:14 Last Admin: 06/10/17 15:09 Dose: Not Given Epoetin Drake (Epogen) 10,000 units SUBQ MoWeFr [facility] Stop: 08/10/17 17:29 Ferrous Sulfate (Iron) 300 mg PO BID [facility] Stop: 08/11/17 08:59 Last Admin: 06/13/17 08:45 Dose: 300 mg Folic Acid (Folate) 1 mg PO DAILY [facility] Stop: 08/11/17 08:59 Last Admin: 06/13/17 08:48 Dose: 1 mg Hydralazine HCl (Apresoline) 25 mg PO TID [facility] Stop: 08/09/17 20:59 Last Admin: 06/13/17 09:02 Dose: 25 mg Hydralazine HCl (Apresoline) 50 mg PO TID [facility] Stop: 08/10/17 20:59 Last Admin: 06/13/17 09:00 Dose: 50 mg Heparin Sodium/Dextrose (Heparin Drip) 25,000 units in 250 mls @ 0 mls/hr IV TITR PRN; Protocol; Titrate PRN Reason: PROTOCOL Stop: 08/09/17 01:30 Last Admin: 06/11/17 05:16 Dose: 11 mls/hr Sodium Chloride (Nacl 0.45%) 1,000 mls @ 50 mls/hr IV .Q20H [facility] Stop: 08/10/17 18:28 Last Admin: 06/11/17 18:48 Dose: 50 mls/hr Insulin Aspart (Novolog Insulin Sliding Scale) 0 units SUBQ ACHS [facility] PRN Reason: Protocol Stop: 08/09/17 07:29 Last Admin: 06/13/17 11:44 Dose: Not Given Levothyroxine Sodium (Synthroid) 0.05 mg PO QDAC [facility] Stop: 08/09/17 16:29 Last Admin: 06/13/17 11:49 Dose: 0.05 mg Losartan Potassium (Cozaar) 50 mg PO DAILY [facility] Stop: 08/12/17 08:59 Last Admin: 06/13/17 09:03 Dose: 50 mg Ondansetron HCl (Zofran) 4 mg IV Q6H PRN PRN Reason: Nausea / Vomiting Stop: 08/08/17 22:29 Sevelamer Carbonate (Renvela) 1,600 mg PO TIDWM [facility] Stop: 08/12/17 07:59 Last Admin: 06/13/17 11:52 Dose: 1,600 mg Sodium Bicarbonate (Sodium Bicarbonate) 1,250 mg PO TID [facility]A PRN Reason: Protocol Stop: 08/10/17 13:59 Last Admin: 06/13/17 08:46 Dose: 1,250 mg General: Alert Cardiovascular: Regular rate Lungs: Clear to auscultation Extremities: Other (left great toe dusky little purple) Assessment/Plan - Problem List Patient Problems: All Active Problems Abdominal pain (Acute) R10.9 Cholangitis (Acute) K83.0 DM w/o complication type II (Acute) E11.9 Gallbladder stone with nonacute cholecystitis (Acute) K80.10 HTN (hypertension) (Acute) I10 HTN (hypertension), benign (Acute) I10 Leukocytosis (Acute) D72.829 Renal mass (Acute) N28.89 Nutritional Asmnt/Malnutr-PDOC - Dietary Evaluation Malnutrition Findings (Please click <Entered> for more info): Nutritional Asmnt/Malnutrition Start: 06/10/17 14: 59 Text: Status: Complete Freq: Document 06/10/17 14:59 OLU (Rec: 06/10/17 15:06 [email or web address]) Nutritional Asmnt/Malnutrition Patient General Information Nutritional Screening High Risk Diagnosis left foot cellulitis Pertinent Medical Hx/Surgical Hx HTN, DM, dyslipidemia Subjective Information Pt seen resting in bed, awake and alert. pt speaks [place]. Pt reported good appetite, consumed 100% of lunch, "small tray". Pt appeared overweigh. Current Diet Order/ Nutrition Support CCHO 60mg Pertinent Medications novolog, synthroid, vancomycin Pertinent Labs 06/10 Cl 112H, BUN 58H, Cr 4.6 , Glu 144, POC 140-183, TSH 9. 21 06/09 A1C 8.0H, glu 246 Nutritional Hx/Data Height 1.68 m Height (Calculated Centimeters) 167.6 Current Weight (lbs) 82.554 kg Weight (Calculated Kilograms) 82.6 Weight (Calculated Grams) 53259.8 Usual body Weight (lbs) 180 % Usual Body Weight 101 [place] Body Weight 142 % [place] Body Weight 128 Body Mass Index (BMI) 29.3 Weight Status Overweight GI Symptoms GI Symptoms None Difficult in: None Food Allergies No Usual diet at home eat chicken fish often, limit amount of starch, juice, milk. Skin Integrity/Comment: intact Current %PO Good (75-100%) Estimated Nutritional Goals BEE in Kcals: Using Current wt Calories/Kcals/Kg 25-30 Kcals Calculated 5774-3476 Protein: Using Current wt Protein g/k Protein Calculated 83g monitor renal labs Fluid: ml 7389-8519 Nutritional Problem 2. Problem Problem altered nutrition related lab values Etiology hx of dm Signs/Symptoms: Glu 144-246, POC 140-183 1. Problem Problem increased nutrition needs ( protein Etiology increased metabolic demand fow wound healing Signs/Symptoms: dx of cellulitis Malnutrition Alert Protein-Calorie Malnutrition N/A Is there a minimum of two criteria No selected? Query Text:Check all the applicable criteria. A minimum of two criteria are recommended for diagnosis of either severe or non-severe malnutrition. Intervention/Recommendation Comments 1. continue with current diet. pt understands diabetic diet and will follow it 2. adjust insulin as needed for optimal glycemic control 3. monitor PO intake, skin integrity, labs, wt weekly 4. F/U as moderate risk in 3-5 days, 06/13-06/15 Expected Outcomes/Goals Expected Outcomes/Goals 1. PO intake to continue > 75% to meet nutritional needs 2. glucose to improve 3. wt stability 4. skin integrity to impove
[2017-06-13] MEDS ORDERED: Probiotic Screen MC PRN (14:44)
--- NOTE | 2017-06-13 15:27 | Infectious Disease Prog Note ---
Infectious Disease Subjective - Review of Systems Service Date: 06/13/17 Subjective: No change, no fever. Infectious Disease Objective - Results Result Diagrams: 06/13/17 05:30 06/13/17 05:30 Recent Labs: Laboratory Last Values WBC 9.1 Th/cmm (4.8-10.8) D 06/13/17 05:30 RBC 2.96 Mil/cmm (3.80-5.80) L 06/13/17 05:30 Hgb 9.0 gm/dL (12-16) L 06/13/17 05:30 Hct 26.9 % (41.0-60) L 06/13/17 05:30 MCV 90.9 fl (80-99) 06/13/17 05:30 MCH 30.3 pg (27.0-31.0) 06/13/17 05:30 MCHC Differential 33.3 pg (28.0-36.0) 06/13/17 05:30 RDW 14.2 % (11.5-20.0) 06/13/17 05:30 Plt Count 226 Th/cmm (150-400) 06/13/17 05:30 MPV 8.9 fl 06/13/17 05:30 Neutrophils % 63.2 % (40.0-80.0) 06/13/17 05:30 Lymphocytes % 23.5 % (20.0-50.0) 06/13/17 05:30 Monocytes % 10.0 % (2.0-10.0) 06/13/17 05:30 Eosinophils % 2.5 % (0.0-5.0) 06/13/17 05:30 Basophils % 0.8 % (0.0-2.0) 06/13/17 05:30 PT 11.8 SECONDS (9.5-11.5) H 06/09/17 21:29 INR 1.12 (0.5-1.4) 06/09/17 21:29 PTT (Actin FS) 56.6 SECONDS (26.0-38.0) H 06/11/17 12:55 Sodium 139 mEq/L (136-145) 06/13/17 05:30 Potassium 3.5 mEq/L (3.5-5.1) 06/13/17 05:30 Chloride 105 mEq/L (98-107) 06/13/17 05:30 Carbon Dioxide 26.1 mEq/L (21.0-31.0) 06/13/17 05:30 Anion Gap 11.4 (7.0-16.0) 06/13/17 05:30 BUN 35 mg/dL (7-25) H 06/13/17 05:30 Creatinine 3.7 mg/dL (0.7-1.3) H 06/13/17 05:30 Est GFR ( Amer) 21.1 ml/min (>90) 06/13/17 05:30 Est GFR (Non-Af Amer) 17.5 ml/min 06/13/17 05:30 BUN/Creatinine Ratio 9.5 06/13/17 05:30 Glucose 120 mg/dL (70-105) H 06/13/17 05:30 POC Glucose 129 MG/DL (70 - 105) H 06/13/17 11:40 Hemoglobin A1c % 8.0 % (4.0-6.0) H 06/09/17 21:29 Whole Bld Lactic Acid 1.27 mmol/L (0.60-1.99) 06/09/17 21:29 Calcium 7.9 mg/dL (8.6-10.3) L 06/13/17 05:30 Phosphorus 5.9 mg/dL (2.5-5.0) H 06/12/17 05:20 Magnesium 1.6 mg/dL (1.9-2.7) L 06/11/17 05:46 Iron 44 ug/dL (38-169) 06/12/17 05:20 TIBC 210 ug/dL (250-450) L 06/12/17 05:20 Iron Saturation 21 % (15-55) 06/12/17 05:20 Unsaturated IBC 166 ug/dL (111-343) 06/12/17 05:20 Total Bilirubin 0.4 mg/dL (0.3-1.0) 06/12/17 05:20 AST 9 U/L (13-39) L 06/12/17 05:20 ALT 5 U/L (7-52) L 06/12/17 05:20 Alkaline Phosphatase 24 U/L (34-104) L 06/12/17 05:20 Creatine Kinase 218 U/L (30-223) 06/09/17 21:29 Troponin I 0.03 ng/mL (0.01-0.05) 06/10/17 15:12 Total Protein 6.4 gm/dL (6.0-8.3) 06/12/17 05:20 Albumin 3.2 gm/dL (4.2-5.5) L 06/12/17 05:20 Globulin 3.2 gm/dL 06/12/17 05:20 Albumin/Globulin Ratio 1.0 (1.0-1.8) 06/12/17 05:20 Triglycerides 190 mg/dL (<150) H 06/11/17 05:46 Cholesterol 212 mg/dL (<200) H 06/11/17 05:46 LDL Cholesterol Direct 176 mg/dL (75-193) 06/11/17 05:46 HDL Cholesterol 27 mg/dL (23-92) 06/11/17 05:46 TSH 5.61 uIU/ml (0.34-5.60) H 06/11/17 05:46 Urine Source MIDSTREAM 06/09/17 23:35 Urine Color YELLOW 06/09/17 23:35 Urine Clarity CLEAR (CLEAR) 06/09/17 23:35 Urine pH 5.5 (4.6 - 8.0) 06/09/17 23:35 Ur Specific [place] 1.020 (1.005-1.030) 06/09/17 23:35 Urine Protein 100 mg/dL (NEGATIVE) H 06/09/17 23:35 Urine Glucose (UA) 250 mg/dL (NEGATIVE) H 06/09/17 23:35 Urine Ketones NEGATIVE mg/dL (NEGATIVE) 06/09/17 23:35 Urine Blood MODERATE (NEGATIVE) H 06/09/17 23:35 Urine Nitrate NEGATIVE (NEGATIVE) 06/09/17 23:35 Urine Bilirubin NEGATIVE (NEGATIVE) 06/09/17 23:35 Urine Urobilinogen 0.2 E.U./dL (0.2 - 1.0) 06/09/17 23:35 Ur Leukocyte Esterase NEGATIVE (NEGATIVE) 06/09/17 23:35 Urine RBC 5-10 /hpf (0-5) H 06/09/17 23:35 Urine WBC NONE SEEN /hpf (0-5) 06/09/17 23:35 Ur Epithelial Cells NONE SEEN /lpf (FEW) 06/09/17 23:35 Urine Bacteria NONE SEEN /hpf (NONE SEEN) 06/09/17 23:35 U Random Total Protein 98.0 mg/dL 06/12/17 09:00 Urine Collection Time 24 hours 06/12/17 09:00 Urine Total Volume 1000 ml 06/12/17 09:00 Urine Creatinine 98.0 mg/dl (39.0-259.0) 06/12/17 09:00 Creat Clearance 24 Hr 12 ml/min (97.00-137.00) L 06/12/17 09:00 U Tot Protein 24h, Calc 980.0 mg/24 hr (0-165) H 06/12/17 09:00 Body Surface Area 1.93 06/12/17 09:00 Random Vancomycin 18.5 ug/mL (5.0-40.0) 06/11/17 05:46 Hepatitis A IgM Ab Negative (Negative) 06/12/17 05:50 Hep Bs Antigen Negative (Negative) 06/12/17 05:50 Hep B Core IgM Ab Negative (Negative) 06/12/17 05:50 Hepatitis C Antibody <0.1 s/co ratio (0.0-0.9) 06/12/17 05:50 - Physical Exam Vitals and I&O: Vital Signs Temp 98.3 F 06/13/17 08:00 Pulse 70 06/13/17 09:03 Resp 17 06/13/17 08:00 BP 166/73 06/13/17 09:03 Pulse Ox 94 06/13/17 08:00 Intake & Output 06/12/17 06/13/17 06/13/17 18:59 06:59 18:59 Intake Total 300 Balance 300 Weight (lbs) 81.76 kg 81.647 kg Intake: Oral 300 Other: # Bowel Movements 2 Active Medications: Current Medications Acetaminophen (Tylenol Extra Strength) 500 mg PO Q4H PRN PRN Reason: Pain or Fever >101 Stop: 08/08/17 22:44 Acetaminophen/Hydrocodone Bitart ([place] 5mg/325mg) 1 tab PO Q6H PRN PRN Reason: Pain (Severe) Stop: 08/08/17 22:28 Last Admin: 06/12/17 21:24 Dose: 1 tab Atorvastatin Calcium (Lipitor) 20 mg PO DAILY [facility] PRN Reason: Protocol Stop: 08/09/17 14:59 Last Admin: 06/13/17 08:45 Dose: 20 mg Calcitriol (Rocaltrol) 0.25 mcg PO DAILY [facility] Stop: 08/11/17 08:59 Last Admin: 06/13/17 08:47 Dose: 0.25 mcg Cilostazol (Pletal) 50 mg PO BID [facility] Stop: 08/09/17 16:59 Last Admin: 06/13/17 08:46 Dose: 50 mg Clonidine HCl (Tdgyodbn-Bgc-4) 1 patch TD Th [facility] Stop: 08/09/17 14:14 Last Admin: 06/10/17 15:09 Dose: Not Given Epoetin Drake (Epogen) 10,000 units SUBQ MoWeFr [facility] Stop: 08/10/17 17:29 Ferrous Sulfate (Iron) 300 mg PO BID [facility] Stop: 08/11/17 08:59 Last Admin: 06/13/17 08:45 Dose: 300 mg Folic Acid (Folate) 1 mg PO DAILY [facility] Stop: 08/11/17 08:59 Last Admin: 06/13/17 08:48 Dose: 1 mg Hydralazine HCl (Apresoline) 25 mg PO TID [facility] Stop: 08/09/17 20:59 Last Admin: 06/13/17 09:02 Dose: 25 mg Hydralazine HCl (Apresoline) 50 mg PO TID [facility] Stop: 08/10/17 20:59 Last Admin: 06/13/17 09:00 Dose: 50 mg Sodium Chloride (Nacl 0.45%) 1,000 mls @ 50 mls/hr IV .Q20H [facility] Stop: 08/10/17 18:28 Last Admin: 06/11/17 18:48 Dose: 50 mls/hr Insulin Aspart (Novolog Insulin Sliding Scale) 0 units SUBQ ACHS [facility] PRN Reason: Protocol Stop: 08/09/17 07:29 Last Admin: 06/13/17 11:44 Dose: Not Given Levothyroxine Sodium (Synthroid) 0.05 mg PO QDAC [facility] Stop: 08/09/17 16:29 Last Admin: 06/13/17 11:49 Dose: 0.05 mg Losartan Potassium (Cozaar) 50 mg PO DAILY [facility] Stop: 08/12/17 08:59 Last Admin: 06/13/17 09:03 Dose: 50 mg Miscellaneous (Probiotic Screen) 1 ea MC PRN PRN PRN Reason: PROTOCOL Stop: 08/12/17 14:43 Ondansetron HCl (Zofran) 4 mg IV Q6H PRN PRN Reason: Nausea / Vomiting Stop: 08/08/17 22:29 Sevelamer Carbonate (Renvela) 1,600 mg PO TIDWM [facility] Stop: 08/12/17 07:59 Last Admin: 06/13/17 11:52 Dose: 1,600 mg Sodium Bicarbonate (Sodium Bicarbonate) 1,250 mg PO TID [facility] PRN Reason: Protocol Stop: 08/10/17 13:59 Last Admin: 06/13/17 08:46 Dose: 1,250 mg General: no acute distress, well developed, well nourished HEENT: atraumatic, normocephalic, PERRLA, EOMI, moist mucous membrane Neck: supple, no thyromegaly, no lymphadenopathy, no rigid Cardiovascular: S1S2, regular Lungs: clear to auscultation bilaterally, clear to percussion Abdomen: soft, no tender, no distended Extremities: other (left foot big toe cyanotic, left 2nd ia also loosing niormal color and getting cyanotic.), no cyanosis, no clubbing, no edema Neurological: awake, alert, oriented Skin: intact Infectious Disease Assmt/Plan - Problem List Patient Problems: All Active Problems Abdominal pain (Acute) R10.9 Cholangitis (Acute) K83.0 DM w/o complication type II (Acute) E11.9 Gallbladder stone with nonacute cholecystitis (Acute) K80.10 HTN (hypertension) (Acute) I10 HTN (hypertension), benign (Acute) I10 Leukocytosis (Acute) D72.829 Renal mass (Acute) N28.89 - Assessment Assessment: 1. Hypertensive emergency. 2. Cellulitis of the left big toe, likely arterial insufficiency. Pregangrenous condition. 3. DM2 4. HTN. 5. CKD 5. - Plan Plan: Continue heparin drip. Nutritional Asmnt/Malnutr-PDOC - Dietary Evaluation Malnutrition Findings (Please click <Entered> for more info): Nutritional Asmnt/Malnutrition Start: 06/10/17 14: 59 Text: Status: Complete Freq: Document 06/10/17 14:59 LCHENG (Rec: 06/10/17 15:06 [facility]-[email or web address]) Nutritional Asmnt/Malnutrition Patient General Information Nutritional Screening High Risk Diagnosis left foot cellulitis Pertinent Medical Hx/Surgical Hx HTN, DM, dyslipidemia Subjective Information Pt seen resting in bed, awake and alert. pt speaks [place]i. Pt reported good appetite, consumed 100% of lunch, "small tray". Pt appeared overweigh. Current Diet Order/ Nutrition Support CCHO 60mg Pertinent Medications novolog, synthroid, vancomycin Pertinent Labs 06/10 Cl 112H, BUN 58H, Cr 4.6 , Glu 144, POC 140-183, TSH 9. 21 06/09 A1C 8.0H, glu 246 Nutritional Hx/Data Height 1.68 m Height (Calculated Centimeters) 167.6 Current Weight (lbs) 82.554 kg Weight (Calculated Kilograms) 82.6 Weight (Calculated Grams) 01666.8 Usual body Weight (lbs) 180 % Usual Body Weight 101 [place] Body Weight 142 % [place] Body Weight 128 Body Mass Index (BMI) 29.3 Weight Status Overweight GI Symptoms GI Symptoms None Difficult in: None Food Allergies No Usual diet at home eat chicken fish often, limit amount of starch, juice, milk. Skin Integrity/Comment: intact Current %PO Good (75-100%) Estimated Nutritional Goals BEE in Kcals: Using Current wt Calories/Kcals/Kg 25-30 Kcals Calculated 3320-6997 Protein: Using Current wt Protein g/k Protein Calculated 83g monitor renal labs Fluid: ml 3125-3858 Nutritional Problem 2. Problem Problem altered nutrition related lab values Etiology hx of dm Signs/Symptoms: Glu 144-246, POC 140-183 1. Problem Problem increased nutrition needs ( protein Etiology increased metabolic demand fow wound healing Signs/Symptoms: dx of cellulitis Malnutrition Alert Protein-Calorie Malnutrition N/A Is there a minimum of two criteria No selected? Query Text:Check all the applicable criteria. A minimum of two criteria are recommended for diagnosis of either severe or non-severe malnutrition. Intervention/Recommendation Comments 1. continue with current diet. pt understands diabetic diet and will follow it 2. adjust insulin as needed for optimal glycemic control 3. monitor PO intake, skin integrity, labs, wt weekly 4. F/U as moderate risk in 3-5 days, 06/13-06/15 Expected Outcomes/Goals Expected Outcomes/Goals 1. PO intake to continue > 75% to meet nutritional needs 2. glucose to improve 3. wt stability 4. skin integrity to impove
--- NOTE | 2017-06-13 15:41 | General Progress Note ---
Subjective - Review of Systems Service Date: 06/13/17 Subjective: Patient seen and examined doing better no new concern reported Objective - Results Result Diagrams: 06/13/17 05:30 06/13/17 05:30 Recent Labs: Laboratory Last Values WBC 9.1 Th/cmm (4.8-10.8) D 06/13/17 05:30 RBC 2.96 Mil/cmm (3.80-5.80) L 06/13/17 05:30 Hgb 9.0 gm/dL (12-16) L 06/13/17 05:30 Hct 26.9 % (41.0-60) L 06/13/17 05:30 MCV 90.9 fl (80-99) 06/13/17 05:30 MCH 30.3 pg (27.0-31.0) 06/13/17 05:30 MCHC Differential 33.3 pg (28.0-36.0) 06/13/17 05:30 RDW 14.2 % (11.5-20.0) 06/13/17 05:30 Plt Count 226 Th/cmm (150-400) 06/13/17 05:30 MPV 8.9 fl 06/13/17 05:30 Neutrophils % 63.2 % (40.0-80.0) 06/13/17 05:30 Lymphocytes % 23.5 % (20.0-50.0) 06/13/17 05:30 Monocytes % 10.0 % (2.0-10.0) 06/13/17 05:30 Eosinophils % 2.5 % (0.0-5.0) 06/13/17 05:30 Basophils % 0.8 % (0.0-2.0) 06/13/17 05:30 PT 11.8 SECONDS (9.5-11.5) H 06/09/17 21:29 INR 1.12 (0.5-1.4) 06/09/17 21:29 PTT (Actin FS) 56.6 SECONDS (26.0-38.0) H 06/11/17 12:55 Sodium 139 mEq/L (136-145) 06/13/17 05:30 Potassium 3.5 mEq/L (3.5-5.1) 06/13/17 05:30 Chloride 105 mEq/L (98-107) 06/13/17 05:30 Carbon Dioxide 26.1 mEq/L (21.0-31.0) 06/13/17 05:30 Anion Gap 11.4 (7.0-16.0) 06/13/17 05:30 BUN 35 mg/dL (7-25) H 06/13/17 05:30 Creatinine 3.7 mg/dL (0.7-1.3) H 06/13/17 05:30 Est GFR ( Amer) 21.1 ml/min (>90) 06/13/17 05:30 Est GFR (Non-Af Amer) 17.5 ml/min 06/13/17 05:30 BUN/Creatinine Ratio 9.5 06/13/17 05:30 Glucose 120 mg/dL (70-105) H 06/13/17 05:30 POC Glucose 129 MG/DL (70 - 105) H 06/13/17 11:40 Hemoglobin A1c % 8.0 % (4.0-6.0) H 06/09/17 21:29 Whole Bld Lactic Acid 1.27 mmol/L (0.60-1.99) 06/09/17 21:29 Calcium 7.9 mg/dL (8.6-10.3) L 06/13/17 05:30 Phosphorus 5.9 mg/dL (2.5-5.0) H 06/12/17 05:20 Magnesium 1.6 mg/dL (1.9-2.7) L 06/11/17 05:46 Iron 44 ug/dL (38-169) 06/12/17 05:20 TIBC 210 ug/dL (250-450) L 06/12/17 05:20 Iron Saturation 21 % (15-55) 06/12/17 05:20 Unsaturated IBC 166 ug/dL (111-343) 06/12/17 05:20 Total Bilirubin 0.4 mg/dL (0.3-1.0) 06/12/17 05:20 AST 9 U/L (13-39) L 06/12/17 05:20 ALT 5 U/L (7-52) L 06/12/17 05:20 Alkaline Phosphatase 24 U/L (34-104) L 06/12/17 05:20 Creatine Kinase 218 U/L (30-223) 06/09/17 21:29 Troponin I 0.03 ng/mL (0.01-0.05) 06/10/17 15:12 Total Protein 6.4 gm/dL (6.0-8.3) 06/12/17 05:20 Albumin 3.2 gm/dL (4.2-5.5) L 06/12/17 05:20 Globulin 3.2 gm/dL 06/12/17 05:20 Albumin/Globulin Ratio 1.0 (1.0-1.8) 06/12/17 05:20 Triglycerides 190 mg/dL (<150) H 06/11/17 05:46 Cholesterol 212 mg/dL (<200) H 06/11/17 05:46 LDL Cholesterol Direct 176 mg/dL (75-193) 06/11/17 05:46 HDL Cholesterol 27 mg/dL (23-92) 06/11/17 05:46 TSH 5.61 uIU/ml (0.34-5.60) H 06/11/17 05:46 Urine Source MIDSTREAM 06/09/17 23:35 Urine Color YELLOW 06/09/17 23:35 Urine Clarity CLEAR (CLEAR) 06/09/17 23:35 Urine pH 5.5 (4.6 - 8.0) 06/09/17 23:35 Ur Specific [place] 1.020 (1.005-1.030) 06/09/17 23:35 Urine Protein 100 mg/dL (NEGATIVE) H 06/09/17 23:35 Urine Glucose (UA) 250 mg/dL (NEGATIVE) H 06/09/17 23:35 Urine Ketones NEGATIVE mg/dL (NEGATIVE) 06/09/17 23:35 Urine Blood MODERATE (NEGATIVE) H 06/09/17 23:35 Urine Nitrate NEGATIVE (NEGATIVE) 06/09/17 23:35 Urine Bilirubin NEGATIVE (NEGATIVE) 06/09/17 23:35 Urine Urobilinogen 0.2 E.U./dL (0.2 - 1.0) 06/09/17 23:35 Ur Leukocyte Esterase NEGATIVE (NEGATIVE) 06/09/17 23:35 Urine RBC 5-10 /hpf (0-5) H 06/09/17 23:35 Urine WBC NONE SEEN /hpf (0-5) 06/09/17 23:35 Ur Epithelial Cells NONE SEEN /lpf (FEW) 06/09/17 23:35 Urine Bacteria NONE SEEN /hpf (NONE SEEN) 06/09/17 23:35 U Random Total Protein 98.0 mg/dL 06/12/17 09:00 Urine Collection Time 24 hours 06/12/17 09:00 Urine Total Volume 1000 ml 06/12/17 09:00 Urine Creatinine 98.0 mg/dl (39.0-259.0) 06/12/17 09:00 Creat Clearance 24 Hr 12 ml/min (97.00-137.00) L 06/12/17 09:00 U Tot Protein 24h, Calc 980.0 mg/24 hr (0-165) H 06/12/17 09:00 Body Surface Area 1.93 06/12/17 09:00 Random Vancomycin 18.5 ug/mL (5.0-40.0) 06/11/17 05:46 Hepatitis A IgM Ab Negative (Negative) 06/12/17 05:50 Hep Bs Antigen Negative (Negative) 06/12/17 05:50 Hep B Core IgM Ab Negative (Negative) 06/12/17 05:50 Hepatitis C Antibody <0.1 s/co ratio (0.0-0.9) 06/12/17 05:50 - Physical Exam Vitals and I&O: Vital Signs Temp 98.3 F 06/13/17 08:00 Pulse 70 06/13/17 09:03 Resp 17 06/13/17 08:00 BP 166/73 06/13/17 09:03 Pulse Ox 94 06/13/17 08:00 Intake & Output 06/12/17 06/13/17 06/13/17 18:59 06:59 18:59 Intake Total 300 Balance 300 Weight (lbs) 81.76 kg 81.647 kg Intake: Oral 300 Other: # Bowel Movements 2 Active Medications: Current Medications Acetaminophen (Tylenol Extra Strength) 500 mg PO Q4H PRN PRN Reason: Pain or Fever >101 Stop: 08/08/17 22:44 Acetaminophen/Hydrocodone Bitart ([place] 5mg/325mg) 1 tab PO Q6H PRN PRN Reason: Pain (Severe) Stop: 08/08/17 22:28 Last Admin: 06/12/17 21:24 Dose: 1 tab Atorvastatin Calcium (Lipitor) 20 mg PO DAILY TERA PRN Reason: Protocol Stop: 08/09/17 14:59 Last Admin: 06/13/17 08:45 Dose: 20 mg Calcitriol (Rocaltrol) 0.25 mcg PO DAILY TERA Stop: 08/11/17 08:59 Last Admin: 06/13/17 08:47 Dose: 0.25 mcg Cilostazol (Pletal) 50 mg PO BID TERA Stop: 08/09/17 16:59 Last Admin: 06/13/17 08:46 Dose: 50 mg Clonidine HCl (Fasixait-Ges-8) 1 patch TD Th TERA Stop: 08/09/17 14:14 Last Admin: 06/10/17 15:09 Dose: Not Given Epoetin Drake (Epogen) 10,000 units SUBQ MoWeFr TERA Stop: 08/10/17 17:29 Ferrous Sulfate (Iron) 300 mg PO BID TERA Stop: 08/11/17 08:59 Last Admin: 06/13/17 08:45 Dose: 300 mg Folic Acid (Folate) 1 mg PO DAILY TERA Stop: 08/11/17 08:59 Last Admin: 06/13/17 08:48 Dose: 1 mg Hydralazine HCl (Apresoline) 25 mg PO TID TERA Stop: 08/09/17 20:59 Last Admin: 06/13/17 09:02 Dose: 25 mg Hydralazine HCl (Apresoline) 50 mg PO TID TERA Stop: 08/10/17 20:59 Last Admin: 06/13/17 09:00 Dose: 50 mg Sodium Chloride (Nacl 0.45%) 1,000 mls @ 50 mls/hr IV .Q20H TERA Stop: 08/10/17 18:28 Last Admin: 06/11/17 18:48 Dose: 50 mls/hr Insulin Aspart (Novolog Insulin Sliding Scale) 0 units SUBQ ACHS TERA PRN Reason: Protocol Stop: 08/09/17 07:29 Last Admin: 06/13/17 11:44 Dose: Not Given Levothyroxine Sodium (Synthroid) 0.05 mg PO QDAC TERA Stop: 08/09/17 16:29 Last Admin: 06/13/17 11:49 Dose: 0.05 mg Losartan Potassium (Cozaar) 50 mg PO DAILY TERA Stop: 08/12/17 08:59 Last Admin: 06/13/17 09:03 Dose: 50 mg Miscellaneous (Probiotic Screen) 1 ea MC PRN PRN PRN Reason: PROTOCOL Stop: 08/12/17 14:43 Ondansetron HCl (Zofran) 4 mg IV Q6H PRN PRN Reason: Nausea / Vomiting Stop: 08/08/17 22:29 Sevelamer Carbonate (Renvela) 1,600 mg PO TIDWM TERA Stop: 08/12/17 07:59 Last Admin: 06/13/17 11:52 Dose: 1,600 mg Sodium Bicarbonate (Sodium Bicarbonate) 1,250 mg PO TID TERA PRN Reason: Protocol Stop: 08/10/17 13:59 Last Admin: 06/13/17 08:46 Dose: 1,250 mg General: Alert Cardiovascular: Regular rate Lungs: Clear to auscultation Extremities: Other (left great toe dusky little purple) Assessment/Plan - Problem List Patient Problems: All Active Problems Abdominal pain (Acute) R10.9 Cholangitis (Acute) K83.0 DM w/o complication type II (Acute) E11.9 Gallbladder stone with nonacute cholecystitis (Acute) K80.10 HTN (hypertension) (Acute) I10 HTN (hypertension), benign (Acute) I10 Leukocytosis (Acute) D72.829 Renal mass (Acute) N28.89 - Assessment Assessment: Left great toe gangrene 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 now HTN - Plan Plan: HD CT Angio lower ext Monitor vitals Plan of care discussed with nursing staff Nutritional Asmnt/Malnutr-PDOC - Dietary Evaluation Malnutrition Findings (Please click <Entered> for more info): Nutritional Asmnt/Malnutrition Start: 06/10/17 14: 59 Text: Status: Complete Freq: Document 06/10/17 14:59 HENG (Rec: 06/10/17 15:06 [place] [email or web address]) Nutritional Asmnt/Malnutrition Patient General Information Nutritional Screening High Risk Diagnosis left foot cellulitis Pertinent Medical Hx/Surgical Hx HTN, DM, dyslipidemia Subjective Information Pt seen resting in bed, awake and alert. pt speaks Yi. Pt reported good appetite, consumed 100% of lunch, "small tray". Pt appeared overweigh. Current Diet Order/ Nutrition Support CCHO 60mg Pertinent Medications novolog, synthroid, vancomycin Pertinent Labs 06/10 Cl 112H, BUN 58H, Cr 4.6 , Glu 144, POC 140-183, TSH 9. 21 06/09 A1C 8.0H, glu 246 Nutritional Hx/Data Height 1.68 m Height (Calculated Centimeters) 167.6 Current Weight (lbs) 82.554 kg Weight (Calculated Kilograms) 82.6 Weight (Calculated Grams) 03297.8 Usual body Weight (lbs) 180 % Usual Body Weight 101 [place] Body Weight 142 % [place] Body Weight 128 Body Mass Index (BMI) 29.3 Weight Status Overweight GI Symptoms GI Symptoms None Difficult in: None Food Allergies No Usual diet at home eat chicken fish often, limit amount of starch, juice, milk. Skin Integrity/Comment: intact Current %PO Good (75-100%) Estimated Nutritional Goals BEE in Kcals: Using Current wt Calories/Kcals/Kg 25-30 Kcals Calculated 4812-7314 Protein: Using Current wt Protein g/k Protein Calculated 83g monitor renal labs Fluid: ml Nutritional Problem 2. Problem Problem altered nutrition related lab values Etiology hx of dm Signs/Symptoms: Glu 144-246, POC 140-183 1. Problem Problem increased nutrition needs ( protein Etiology increased metabolic demand fow wound healing Signs/Symptoms: dx of cellulitis Malnutrition Alert Protein-Calorie Malnutrition N/A Is there a minimum of two criteria No selected? Query Text:Check all the applicable criteria. A minimum of two criteria are recommended for diagnosis of either severe or non-severe malnutrition. Intervention/Recommendation Comments 1. continue with current diet. pt understands diabetic diet and will follow it 2. adjust insulin as needed for optimal glycemic control 3. monitor PO intake, skin integrity, labs, wt weekly 4. F/U as moderate risk in 3-5 days, 06/13-06/15 Expected Outcomes/Goals Expected Outcomes/Goals 1. PO intake to continue > 75% to meet nutritional needs 2. glucose to improve 3. wt stability 4. skin integrity to impove
--- NOTE | 2017-06-14 01:00 | Progress Notes ---
DATE: 06/13/2017 LOCATION: [facility], room #14, bed 1. SUBJECTIVE: The patient is conscious, alert on heparin drip IV. The patient's daughter is at bedside. The patient is feeling better. His leg pain has improved significantly on the left lower extremity and he feels leg warmer. Denies chest pain and shortness of breath. The patient had dialysis yesterday, which he tolerated it well. The patient is scheduled to have CT angio today followed by dialysis today. OBJECTIVE: VITAL SIGNS: Pulse 70, blood pressure 166/73, and respiration rate 18. Intake and output; 1182 and output 400 only yesterday. HEART: Regular. LUNGS: Good air entry. ABDOMEN: Soft. EXTREMITIES: Warmer, no edema. LABORATORY DATA: WBC improved to 9.1, hemoglobin 9.0, and platelet 226,000. Sodium 139, potassium 3.5, chloride 105, CO2 26, BUN 35 and creatinine 3.7. Blood sugar 120. Calcium 7.9. Creatinine clearance 12 mL, protein 980 mg. ASSESSMENT: 1. 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 2. Anemia secondary to chronic kidney disease. 3. Peripheral vascular disease 4. Left toes cellulitis. 5. Diabetes mellitus. 6. Hypertension. 7. Obesity. PLAN: 1. CT angio today. 2. Hemodialysis after CT angio. 3. Continue heparin and other medication. 4. Lab test will be done tomorrow. 5. This depends upon the CT angio report. Further treatment will be decided. Discussed with patient, the patient's daughter at bedside. All questions answered. Discuss with nursing staff. Discussed with Dr. Nguyen yesterday at length. JOB# [id number]
[2017-06-14] MEDS: Hydrocodone/APAP 5mg/325mg Tab PO PRN (04:34)
[2017-06-14 06:16] LABS: ANION GAP 10.4 (7.0-16.0); BUN/CREATININE RATIO 7.6; CARBON DIOXIDE 28.9 mEq/L (21.0-31.0); CREATININE - SERUM 2.9 mg/dL (0.7-1.3); PHOSPHOROUS 2.9 mg/dL (2.5-5.0); POTASSIUM SERUM 3.3 mEq/L (3.5-5.1)
[2017-06-14] MEDS: INSULIN ASPART SLIDING SCALE 100 UNITS/ML UNIT SUBQ SCH ×4 (07:07→20:37)
[2017-06-14] MEDS: Levothyroxine 0.05 Mg Tab PO SCH (07:09)
[2017-06-14] MEDS: Atorvastatin Calcium 10 MG TAB PO SCH (09:37)
[2017-06-14] MEDS: Ferrous Sulfate 300 MG/5 ML UDC PO SCH ×2 (09:37→18:14)
[2017-06-14] MEDS ORDERED: IOHEXOL 350mg/mL 150mL IV ONE (11:41)
--- NOTE | 2017-06-14 12:43 | Infectious Disease Prog Note ---
Infectious Disease Subjective - Review of Systems Service Date: 06/14/17 Subjective: No change, no fever. Infectious Disease Objective - Results Result Diagrams: 06/13/17 05:30 06/14/17 05:41 Recent Labs: Laboratory Last Values WBC 9.1 Th/cmm (4.8-10.8) D 06/13/17 05:30 RBC 2.96 Mil/cmm (3.80-5.80) L 06/13/17 05:30 Hgb 9.0 gm/dL (12-16) L 06/13/17 05:30 Hct 26.9 % (41.0-60) L 06/13/17 05:30 MCV 90.9 fl (80-99) 06/13/17 05:30 MCH 30.3 pg (27.0-31.0) 06/13/17 05:30 MCHC Differential 33.3 pg (28.0-36.0) 06/13/17 05:30 RDW 14.2 % (11.5-20.0) 06/13/17 05:30 Plt Count 226 Th/cmm (150-400) 06/13/17 05:30 MPV 8.9 fl 06/13/17 05:30 Neutrophils % 63.2 % (40.0-80.0) 06/13/17 05:30 Lymphocytes % 23.5 % (20.0-50.0) 06/13/17 05:30 Monocytes % 10.0 % (2.0-10.0) 06/13/17 05:30 Eosinophils % 2.5 % (0.0-5.0) 06/13/17 05:30 Basophils % 0.8 % (0.0-2.0) 06/13/17 05:30 PT 11.8 SECONDS (9.5-11.5) H 06/09/17 21:29 INR 1.12 (0.5-1.4) 06/09/17 21:29 PTT (Actin FS) 56.6 SECONDS (26.0-38.0) H 06/11/17 12:55 Sodium 136 mEq/L (136-145) 06/14/17 05:41 Potassium 3.3 mEq/L (3.5-5.1) L 06/14/17 05:41 Chloride 100 mEq/L (98-107) 06/14/17 05:41 Carbon Dioxide 28.9 mEq/L (21.0-31.0) 06/14/17 05:41 Anion Gap 10.4 (7.0-16.0) 06/14/17 05:41 BUN 22 mg/dL (7-25) 06/14/17 05:41 Creatinine 2.9 mg/dL (0.7-1.3) H 06/14/17 05:41 Est GFR ( Amer) 28.0 ml/min (>90) 06/14/17 05:41 Est GFR (Non-Af Amer) 23.1 ml/min 06/14/17 05:41 BUN/Creatinine Ratio 7.6 06/14/17 05:41 Glucose 173 mg/dL (70-105) H 06/14/17 05:41 POC Glucose 118 MG/DL (70 - 105) H 06/14/17 12:20 Hemoglobin A1c % 8.0 % (4.0-6.0) H 06/09/17 21:29 Whole Bld Lactic Acid 1.27 mmol/L (0.60-1.99) 06/09/17 21:29 Calcium 8.0 mg/dL (8.6-10.3) L 06/14/17 05:41 Phosphorus 2.9 mg/dL (2.5-5.0) 06/14/17 05:41 Magnesium 1.6 mg/dL (1.9-2.7) L 06/11/17 05:46 Iron 44 ug/dL (38-169) 06/12/17 05:20 TIBC 210 ug/dL (250-450) L 06/12/17 05:20 Iron Saturation 21 % (15-55) 06/12/17 05:20 Unsaturated IBC 166 ug/dL (111-343) 06/12/17 05:20 Total Bilirubin 0.4 mg/dL (0.3-1.0) 06/12/17 05:20 AST 9 U/L (13-39) L 06/12/17 05:20 ALT 5 U/L (7-52) L 06/12/17 05:20 Alkaline Phosphatase 24 U/L (34-104) L 06/12/17 05:20 Creatine Kinase 218 U/L (30-223) 06/09/17 21:29 Troponin I 0.03 ng/mL (0.01-0.05) 06/10/17 15:12 Total Protein 6.4 gm/dL (6.0-8.3) 06/12/17 05:20 Albumin 3.2 gm/dL (4.2-5.5) L 06/12/17 05:20 Globulin 3.2 gm/dL 06/12/17 05:20 Albumin/Globulin Ratio 1.0 (1.0-1.8) 06/12/17 05:20 Triglycerides 190 mg/dL (<150) H 06/11/17 05:46 Cholesterol 212 mg/dL (<200) H 06/11/17 05:46 LDL Cholesterol Direct 176 mg/dL (75-193) 06/11/17 05:46 HDL Cholesterol 27 mg/dL (23-92) 06/11/17 05:46 TSH 5.61 uIU/ml (0.34-5.60) H 06/11/17 05:46 Urine Source MIDSTREAM 06/09/17 23:35 Urine Color YELLOW 06/09/17 23:35 Urine Clarity CLEAR (CLEAR) 06/09/17 23:35 Urine pH 5.5 (4.6 - 8.0) 06/09/17 23:35 Ur Specific [place] 1.020 (1.005-1.030) 06/09/17 23:35 Urine Protein 100 mg/dL (NEGATIVE) H 06/09/17 23:35 Urine Glucose (UA) 250 mg/dL (NEGATIVE) H 06/09/17 23:35 Urine Ketones NEGATIVE mg/dL (NEGATIVE) 06/09/17 23:35 Urine Blood MODERATE (NEGATIVE) H 06/09/17 23:35 Urine Nitrate NEGATIVE (NEGATIVE) 06/09/17 23:35 Urine Bilirubin NEGATIVE (NEGATIVE) 06/09/17 23:35 Urine Urobilinogen 0.2 E.U./dL (0.2 - 1.0) 06/09/17 23:35 Ur Leukocyte Esterase NEGATIVE (NEGATIVE) 06/09/17 23:35 Urine RBC 5-10 /hpf (0-5) H 06/09/17 23:35 Urine WBC NONE SEEN /hpf (0-5) 06/09/17 23:35 Ur Epithelial Cells NONE SEEN /lpf (FEW) 06/09/17 23:35 Urine Bacteria NONE SEEN /hpf (NONE SEEN) 06/09/17 23:35 U Random Total Protein 98.0 mg/dL 06/12/17 09:00 Urine Collection Time 24 hours 06/12/17 09:00 Urine Total Volume 1000 ml 06/12/17 09:00 Urine Creatinine 98.0 mg/dl (39.0-259.0) 06/12/17 09:00 Creat Clearance 24 Hr 12 ml/min (97.00-137.00) L 06/12/17 09:00 U Tot Protein 24h, Calc 980.0 mg/24 hr (0-165) H 06/12/17 09:00 Body Surface Area 1.93 06/12/17 09:00 Random Vancomycin 18.5 ug/mL (5.0-40.0) 06/11/17 05:46 Hepatitis A IgM Ab Negative (Negative) 06/12/17 05:50 Hep Bs Antigen Negative (Negative) 06/12/17 05:50 Hep B Core IgM Ab Negative (Negative) 06/12/17 05:50 Hepatitis C Antibody <0.1 s/co ratio (0.0-0.9) 06/12/17 05:50 - Physical Exam Vitals and I&O: Vital Signs Temp 98.0 F 06/14/17 04:00 Pulse 75 06/14/17 04:00 Resp 18 06/14/17 04:00 BP 142/57 06/14/17 04:00 Pulse Ox 98 06/14/17 04:00 Intake & Output 06/13/17 06/14/17 06/14/17 18:59 06:59 18:59 Intake Total 600 1250 Output Total 1601 250 Balance -1001 1000 Weight (lbs) 81.647 kg 82.327 kg Intake: Intake, IV Amount 1000 Sodium Chloride 0.45% 1, 1000 000 ml @ 50 mls/hr IV . Q20H [facility]1983 Rx#:[id number] Oral 600 250 Output: Urine 1600 250 Stool 1 Other: # Bowel Movements 0 Stool Characteristics Soft Soft Active Medications: Current Medications Acetaminophen (Tylenol Extra Strength) 500 mg PO Q4H PRN PRN Reason: Pain or Fever >101 Stop: 08/08/17 22:44 Acetaminophen/Hydrocodone Bitart ([place] 5mg/325mg) 1 tab PO Q6H PRN PRN Reason: Pain (Severe) Stop: 08/08/17 22:28 Last Admin: 06/14/17 04:34 Dose: 1 tab Atorvastatin Calcium (Lipitor) 20 mg PO DAILY [facility]1983 PRN Reason: Protocol Stop: 08/09/17 14:59 Last Admin: 06/14/17 09:37 Dose: Not Given Calcitriol (Rocaltrol) 0.25 mcg PO DAILY [facility]1983 Stop: 08/11/17 08:59 Last Admin: 06/14/17 09:37 Dose: Not Given Cilostazol (Pletal) 50 mg PO BID [facility]1983 Stop: 08/09/17 16:59 Last Admin: 06/14/17 09:37 Dose: Not Given Clonidine HCl (Izpwrzpt-Qvg-9) 1 patch TD Th [facility]1983 Stop: 08/09/17 14:14 Last Admin: 06/10/17 15:09 Dose: Not Given Epoetin Drake (Epogen) 10,000 units SUBQ MoWeFr [facility]1983 Stop: 08/10/17 17:29 Ferrous Sulfate (Iron) 300 mg PO BID [facility]1983 Stop: 08/11/17 08:59 Last Admin: 06/14/17 09:37 Dose: Not Given Folic Acid (Folate) 1 mg PO DAILY [facility] Stop: 08/11/17 08:59 Last Admin: 06/14/17 09:37 Dose: Not Given Hydralazine HCl (Apresoline) 25 mg PO TID [facility]1983 Stop: 08/09/17 20:59 Last Admin: 06/14/17 09:38 Dose: Not Given Hydralazine HCl (Apresoline) 50 mg PO TID [facility] Stop: 08/10/17 20:59 Last Admin: 06/14/17 09:39 Dose: Not Given Sodium Chloride (Nacl 0.45%) 1,000 mls @ 50 mls/hr IV .Q20H [facility]1983 Stop: 08/10/17 18:28 Last Infusion: 06/14/17 06:14 Dose: Infused Insulin Aspart (Novolog Insulin Sliding Scale) 0 units SUBQ ACHS [facility]1983 PRN Reason: Protocol Stop: 08/09/17 07:29 Last Admin: 06/14/17 12:21 Dose: Not Given Levothyroxine Sodium (Synthroid) 0.05 mg PO QDAC [facility]1983 Stop: 08/09/17 16:29 Last Admin: 06/14/17 07:09 Dose: Not Given Losartan Potassium (Cozaar) 50 mg PO DAILY [facility]1983 Stop: 08/12/17 08:59 Last Admin: 06/14/17 09:40 Dose: Not Given Miscellaneous (Probiotic Screen) 1 ea MC PRN PRN PRN Reason: PROTOCOL Stop: 08/12/17 14:43 Ondansetron HCl (Zofran) 4 mg IV Q6H PRN PRN Reason: Nausea / Vomiting Stop: 08/08/17 22:29 Potassium Chloride (Klor-Con) 40 meq PO DAILY [facility] Stop: 08/13/17 13:59 Sevelamer Carbonate (Renvela) 1,600 mg PO TIDWM [facility]1983 Stop: 08/12/17 07:59 Last Admin: 06/14/17 12:28 Dose: 1,600 mg Sodium Bicarbonate (Sodium Bicarbonate) 1,250 mg PO TID TERA PRN Reason: Protocol Stop: 08/10/17 13:59 Last Admin: 06/14/17 09:40 Dose: Not Given General: no acute distress, well developed, well nourished HEENT: atraumatic, normocephalic, PERRLA Neck: supple, no thyromegaly Cardiovascular: S1S2, regular Lungs: clear to auscultation bilaterally, clear to percussion Abdomen: soft, no tender, no distended, no rebound Extremities: no cyanosis, no clubbing, no edema Neurological: awake, alert, oriented Skin: intact Infectious Disease Assmt/Plan - Problem List Patient Problems: All Active Problems Abdominal pain (Acute) R10.9 Cholangitis (Acute) K83.0 DM w/o complication type II (Acute) E11.9 Gallbladder stone with nonacute cholecystitis (Acute) K80.10 HTN (hypertension) (Acute) I10 HTN (hypertension), benign (Acute) I10 Leukocytosis (Acute) D72.829 Renal mass (Acute) N28.89 - Assessment Assessment: 1. Hypertensive emergency. 2. Cellulitis of the left big toe, likely arterial insufficiency. Pregangrenous condition. 3. DM2 4. HTN. 5. CKD 5. - Plan Plan: Continue heparin drip. Nutritional Asmnt/Malnutr-PDOC - Dietary Evaluation Malnutrition Findings (Please click <Entered> for more info): Nutritional Asmnt/Malnutrition Start: 06/10/17 14: 59 Text: Status: Complete Freq: Document 06/10/17 14:59 DAVIDSHARATH (Rec: 06/10/17 15:06 [place] [email or web address]) Nutritional Asmnt/Malnutrition Patient General Information Nutritional Screening High Risk Diagnosis left foot cellulitis Pertinent Medical Hx/Surgical Hx HTN, DM, dyslipidemia Subjective Information Pt seen resting in bed, awake and alert. pt speaks French. Pt reported good appetite, consumed 100% of lunch, "small tray". Pt appeared overweigh. Current Diet Order/ Nutrition Support CCHO 60mg Pertinent Medications novolog, synthroid, vancomycin Pertinent Labs 06/10 Cl 112H, BUN 58H, Cr 4.6 , Glu 144, POC 140-183, TSH 9. 21 06/09 A1C 8.0H, glu 246 Nutritional Hx/Data Height 1.68 m Height (Calculated Centimeters) 167.6 Current Weight (lbs) 82.554 kg Weight (Calculated Kilograms) 82.6 Weight (Calculated Grams) 89756.8 Usual body Weight (lbs) 180 % Usual Body Weight 101 [place] Body Weight 142 % [place] Body Weight 128 Body Mass Index (BMI) 29.3 Weight Status Overweight GI Symptoms GI Symptoms None Difficult in: None Food Allergies No Usual diet at home eat chicken fish often, limit amount of starch, juice, milk. Skin Integrity/Comment: intact Current %PO Good (75-100%) Estimated Nutritional Goals BEE in Kcals: Using Current wt Calories/Kcals/Kg 25-30 Kcals Calculated 1869-8283 Protein: Using Current wt Protein g/k Protein Calculated 83g monitor renal labs Fluid: ml 2507-2270 Nutritional Problem 2. Problem Problem altered nutrition related lab values Etiology hx of dm Signs/Symptoms: Glu 144-246, POC 140-183 1. Problem Problem increased nutrition needs ( protein Etiology increased metabolic demand fow wound healing Signs/Symptoms: dx of cellulitis Malnutrition Alert Protein-Calorie Malnutrition N/A Is there a minimum of two criteria No selected? Query Text:Check all the applicable criteria. A minimum of two criteria are recommended for diagnosis of either severe or non-severe malnutrition. Intervention/Recommendation Comments 1. continue with current diet. pt understands diabetic diet and will follow it 2. adjust insulin as needed for optimal glycemic control 3. monitor PO intake, skin integrity, labs, wt weekly 4. F/U as moderate risk in 3-5 days, 06/13-06/15 Expected Outcomes/Goals Expected Outcomes/Goals 1. PO intake to continue > 75% to meet nutritional needs 2. glucose to improve 3. wt stability 4. skin integrity to impove
--- NOTE | 2017-06-14 12:45 | Infectious Disease Prog Note ---
Infectious Disease Subjective - Review of Systems Service Date: 06/14/17 Subjective: No change, no fever. Infectious Disease Objective - Results Result Diagrams: 06/13/17 05:30 06/14/17 05:41 Recent Labs: Laboratory Last Values WBC 9.1 Th/cmm (4.8-10.8) D 06/13/17 05:30 RBC 2.96 Mil/cmm (3.80-5.80) L 06/13/17 05:30 Hgb 9.0 gm/dL (12-16) L 06/13/17 05:30 Hct 26.9 % (41.0-60) L 06/13/17 05:30 MCV 90.9 fl (80-99) 06/13/17 05:30 MCH 30.3 pg (27.0-31.0) 06/13/17 05:30 MCHC Differential 33.3 pg (28.0-36.0) 06/13/17 05:30 RDW 14.2 % (11.5-20.0) 06/13/17 05:30 Plt Count 226 Th/cmm (150-400) 06/13/17 05:30 MPV 8.9 fl 06/13/17 05:30 Neutrophils % 63.2 % (40.0-80.0) 06/13/17 05:30 Lymphocytes % 23.5 % (20.0-50.0) 06/13/17 05:30 Monocytes % 10.0 % (2.0-10.0) 06/13/17 05:30 Eosinophils % 2.5 % (0.0-5.0) 06/13/17 05:30 Basophils % 0.8 % (0.0-2.0) 06/13/17 05:30 PT 11.8 SECONDS (9.5-11.5) H 06/09/17 21:29 INR 1.12 (0.5-1.4) 06/09/17 21:29 PTT (Actin FS) 56.6 SECONDS (26.0-38.0) H 06/11/17 12:55 Sodium 136 mEq/L (136-145) 06/14/17 05:41 Potassium 3.3 mEq/L (3.5-5.1) L 06/14/17 05:41 Chloride 100 mEq/L (98-107) 06/14/17 05:41 Carbon Dioxide 28.9 mEq/L (21.0-31.0) 06/14/17 05:41 Anion Gap 10.4 (7.0-16.0) 06/14/17 05:41 BUN 22 mg/dL (7-25) 06/14/17 05:41 Creatinine 2.9 mg/dL (0.7-1.3) H 06/14/17 05:41 Est GFR ( Amer) 28.0 ml/min (>90) 06/14/17 05:41 Est GFR (Non-Af Amer) 23.1 ml/min 06/14/17 05:41 BUN/Creatinine Ratio 7.6 06/14/17 05:41 Glucose 173 mg/dL (70-105) H 06/14/17 05:41 POC Glucose 118 MG/DL (70 - 105) H 06/14/17 12:20 Hemoglobin A1c % 8.0 % (4.0-6.0) H 06/09/17 21:29 Whole Bld Lactic Acid 1.27 mmol/L (0.60-1.99) 06/09/17 21:29 Calcium 8.0 mg/dL (8.6-10.3) L 06/14/17 05:41 Phosphorus 2.9 mg/dL (2.5-5.0) 06/14/17 05:41 Magnesium 1.6 mg/dL (1.9-2.7) L 06/11/17 05:46 Iron 44 ug/dL (38-169) 06/12/17 05:20 TIBC 210 ug/dL (250-450) L 06/12/17 05:20 Iron Saturation 21 % (15-55) 06/12/17 05:20 Unsaturated IBC 166 ug/dL (111-343) 06/12/17 05:20 Total Bilirubin 0.4 mg/dL (0.3-1.0) 06/12/17 05:20 AST 9 U/L (13-39) L 06/12/17 05:20 ALT 5 U/L (7-52) L 06/12/17 05:20 Alkaline Phosphatase 24 U/L (34-104) L 06/12/17 05:20 Creatine Kinase 218 U/L (30-223) 06/09/17 21:29 Troponin I 0.03 ng/mL (0.01-0.05) 06/10/17 15:12 Total Protein 6.4 gm/dL (6.0-8.3) 06/12/17 05:20 Albumin 3.2 gm/dL (4.2-5.5) L 06/12/17 05:20 Globulin 3.2 gm/dL 06/12/17 05:20 Albumin/Globulin Ratio 1.0 (1.0-1.8) 06/12/17 05:20 Triglycerides 190 mg/dL (<150) H 06/11/17 05:46 Cholesterol 212 mg/dL (<200) H 06/11/17 05:46 LDL Cholesterol Direct 176 mg/dL (75-193) 06/11/17 05:46 HDL Cholesterol 27 mg/dL (23-92) 06/11/17 05:46 TSH 5.61 uIU/ml (0.34-5.60) H 06/11/17 05:46 Urine Source MIDSTREAM 06/09/17 23:35 Urine Color YELLOW 06/09/17 23:35 Urine Clarity CLEAR (CLEAR) 06/09/17 23:35 Urine pH 5.5 (4.6 - 8.0) 06/09/17 23:35 Ur Specific [place] 1.020 (1.005-1.030) 06/09/17 23:35 Urine Protein 100 mg/dL (NEGATIVE) H 06/09/17 23:35 Urine Glucose (UA) 250 mg/dL (NEGATIVE) H 06/09/17 23:35 Urine Ketones NEGATIVE mg/dL (NEGATIVE) 06/09/17 23:35 Urine Blood MODERATE (NEGATIVE) H 06/09/17 23:35 Urine Nitrate NEGATIVE (NEGATIVE) 06/09/17 23:35 Urine Bilirubin NEGATIVE (NEGATIVE) 06/09/17 23:35 Urine Urobilinogen 0.2 E.U./dL (0.2 - 1.0) 06/09/17 23:35 Ur Leukocyte Esterase NEGATIVE (NEGATIVE) 06/09/17 23:35 Urine RBC 5-10 /hpf (0-5) H 06/09/17 23:35 Urine WBC NONE SEEN /hpf (0-5) 06/09/17 23:35 Ur Epithelial Cells NONE SEEN /lpf (FEW) 06/09/17 23:35 Urine Bacteria NONE SEEN /hpf (NONE SEEN) 06/09/17 23:35 U Random Total Protein 98.0 mg/dL 06/12/17 09:00 Urine Collection Time 24 hours 06/12/17 09:00 Urine Total Volume 1000 ml 06/12/17 09:00 Urine Creatinine 98.0 mg/dl (39.0-259.0) 06/12/17 09:00 Creat Clearance 24 Hr 12 ml/min (97.00-137.00) L 06/12/17 09:00 U Tot Protein 24h, Calc 980.0 mg/24 hr (0-165) H 06/12/17 09:00 Body Surface Area 1.93 06/12/17 09:00 Random Vancomycin 18.5 ug/mL (5.0-40.0) 06/11/17 05:46 Hepatitis A IgM Ab Negative (Negative) 06/12/17 05:50 Hep Bs Antigen Negative (Negative) 06/12/17 05:50 Hep B Core IgM Ab Negative (Negative) 06/12/17 05:50 Hepatitis C Antibody <0.1 s/co ratio (0.0-0.9) 06/12/17 05:50 - Physical Exam Vitals and I&O: Vital Signs Temp 98.0 F 06/14/17 04:00 Pulse 75 06/14/17 04:00 Resp 18 06/14/17 04:00 BP 142/57 06/14/17 04:00 Pulse Ox 98 06/14/17 04:00 Intake & Output 06/13/17 06/14/17 06/14/17 18:59 06:59 18:59 Intake Total 600 1250 Output Total 1601 250 Balance -1001 1000 Weight (lbs) 81.647 kg 82.327 kg Intake: Intake, IV Amount 1000 Sodium Chloride 0.45% 1, 1000 000 ml @ 50 mls/hr IV . Q20H [facility] Rx#:[id number] Oral 600 250 Output: Urine 1600 250 Stool 1 Other: # Bowel Movements 0 Stool Characteristics Soft Soft Active Medications: Current Medications Acetaminophen (Tylenol Extra Strength) 500 mg PO Q4H PRN PRN Reason: Pain or Fever >101 Stop: 08/08/17 22:44 Acetaminophen/Hydrocodone Bitart ([place] 5mg/325mg) 1 tab PO Q6H PRN PRN Reason: Pain (Severe) Stop: 08/08/17 22:28 Last Admin: 06/14/17 04:34 Dose: 1 tab Atorvastatin Calcium (Lipitor) 20 mg PO DAILY [facility] PRN Reason: Protocol Stop: 08/09/17 14:59 Last Admin: 06/14/17 09:37 Dose: Not Given Calcitriol (Rocaltrol) 0.25 mcg PO DAILY [facility] Stop: 08/11/17 08:59 Last Admin: 06/14/17 09:37 Dose: Not Given Cilostazol (Pletal) 50 mg PO BID [facility] Stop: 08/09/17 16:59 Last Admin: 06/14/17 09:37 Dose: Not Given Clonidine HCl (Lkvupagp-Cuk-4) 1 patch TD Th [facility] Stop: 08/09/17 14:14 Last Admin: 06/10/17 15:09 Dose: Not Given Epoetin Drake (Epogen) 10,000 units SUBQ MoWeFr [facility] Stop: 08/10/17 17:29 Ferrous Sulfate (Iron) 300 mg PO BID [facility] Stop: 08/11/17 08:59 Last Admin: 06/14/17 09:37 Dose: Not Given Folic Acid (Folate) 1 mg PO DAILY [facility] Stop: 08/11/17 08:59 Last Admin: 06/14/17 09:37 Dose: Not Given Hydralazine HCl (Apresoline) 25 mg PO TID [facility] Stop: 08/09/17 20:59 Last Admin: 06/14/17 09:38 Dose: Not Given Hydralazine HCl (Apresoline) 50 mg PO TID [facility] Stop: 08/10/17 20:59 Last Admin: 06/14/17 09:39 Dose: Not Given Sodium Chloride (Nacl 0.45%) 1,000 mls @ 50 mls/hr IV .Q20H [facility] Stop: 08/10/17 18:28 Last Infusion: 06/14/17 06:14 Dose: Infused Insulin Aspart (Novolog Insulin Sliding Scale) 0 units SUBQ ACHS [facility] PRN Reason: Protocol Stop: 08/09/17 07:29 Last Admin: 06/14/17 12:21 Dose: Not Given Levothyroxine Sodium (Synthroid) 0.05 mg PO QDAC [facility] Stop: 08/09/17 16:29 Last Admin: 06/14/17 07:09 Dose: Not Given Losartan Potassium (Cozaar) 50 mg PO DAILY [facility] Stop: 08/12/17 08:59 Last Admin: 06/14/17 09:40 Dose: Not Given Miscellaneous (Probiotic Screen) 1 ea [facility] PRN PRN PRN Reason: PROTOCOL Stop: 08/12/17 14:43 Ondansetron HCl (Zofran) 4 mg IV Q6H PRN PRN Reason: Nausea / Vomiting Stop: 08/08/17 22:29 Potassium Chloride (Klor-Con) 40 meq PO DAILY [facility] Stop: 08/13/17 13:59 Sevelamer Carbonate (Renvela) 1,600 mg PO TIDWM [facility] Stop: 08/12/17 07:59 Last Admin: 06/14/17 12:28 Dose: 1,600 mg Sodium Bicarbonate (Sodium Bicarbonate) 1,250 mg PO TID [facility] PRN Reason: Protocol Stop: 08/10/17 13:59 Last Admin: 06/14/17 09:40 Dose: Not Given General: no acute distress, well developed, well nourished HEENT: atraumatic, normocephalic, PERRLA, EOMI Neck: supple, no thyromegaly, no lymphadenopathy Cardiovascular: S1S2, regular Lungs: clear to auscultation bilaterally, clear to percussion Abdomen: soft, no tender, no distended, no mass, no rebound Extremities: other (left big toe cyanotic.), no cyanosis, no clubbing, no edema Neurological: awake, alert, oriented Skin: intact Infectious Disease Assmt/Plan - Problem List Patient Problems: All Active Problems Abdominal pain (Acute) R10.9 Cholangitis (Acute) K83.0 DM w/o complication type II (Acute) E11.9 Gallbladder stone with nonacute cholecystitis (Acute) K80.10 HTN (hypertension) (Acute) I10 HTN (hypertension), benign (Acute) I10 Leukocytosis (Acute) D72.829 Renal mass (Acute) N28.89 - Assessment Assessment: 1. Hypertensive emergency. 2. Cellulitis of the left big toe, likely arterial insufficiency. Pregangrenous condition. 3. DM2 4. HTN. 5. CKD 5. - Plan Plan: Continue heparin drip. Will start rocephin. Nutritional Asmnt/Malnutr-PDOC - Dietary Evaluation Malnutrition Findings (Please click <Entered> for more info): Nutritional Asmnt/Malnutrition Start: 06/10/17 14: 59 Text: Status: Complete Freq: Document 06/10/17 14:59 FRANKLIN (Rec: 06/10/17 15:06 FRANKLIN [email or web address]) Nutritional Asmnt/Malnutrition Patient General Information Nutritional Screening High Risk Diagnosis left foot cellulitis Pertinent Medical Hx/Surgical Hx HTN, DM, dyslipidemia Subjective Information Pt seen resting in bed, awake and alert. pt speaks Yoruba. Pt reported good appetite, consumed 100% of lunch, "small tray". Pt appeared overweigh. Current Diet Order/ Nutrition Support CCHO 60mg Pertinent Medications novolog, synthroid, vancomycin Pertinent Labs 06/10 Cl 112H, BUN 58H, Cr 4.6 , Glu 144, POC 140-183, TSH 9. 21 06/09 A1C 8.0H, glu 246 Nutritional Hx/Data Height 1.68 m Height (Calculated Centimeters) 167.6 Current Weight (lbs) 82.554 kg Weight (Calculated Kilograms) 82.6 Weight (Calculated Grams) 83296.8 Usual body Weight (lbs) 180 % Usual Body Weight 101 Newman Body Weight 142 % Newman Body Weight 128 Body Mass Index (BMI) 29.3 Weight Status Overweight GI Symptoms GI Symptoms None Difficult in: None Food Allergies No Usual diet at home eat chicken fish often, limit amount of starch, juice, milk. Skin Integrity/Comment: intact Current %PO Good (75-100%) Estimated Nutritional Goals BEE in Kcals: Using Current wt Calories/Kcals/Kg 25-30 Kcals Calculated 4030-0640 Protein: Using Current wt Protein g/k Protein Calculated 83g monitor renal labs Fluid: ml 5765-5025 Nutritional Problem 2. Problem Problem altered nutrition related lab values Etiology hx of dm Signs/Symptoms: Glu 144-246, POC 140-183 1. Problem Problem increased nutrition needs ( protein Etiology increased metabolic demand fow wound healing Signs/Symptoms: dx of cellulitis Malnutrition Alert Protein-Calorie Malnutrition N/A Is there a minimum of two criteria No selected? Query Text:Check all the applicable criteria. A minimum of two criteria are recommended for diagnosis of either severe or non-severe malnutrition. Intervention/Recommendation Comments 1. continue with current diet. pt understands diabetic diet and will follow it 2. adjust insulin as needed for optimal glycemic control 3. monitor PO intake, skin integrity, labs, wt weekly 4. F/U as moderate risk in 3-5 days, 06/13-06/15 Expected Outcomes/Goals Expected Outcomes/Goals 1. PO intake to continue > 75% to meet nutritional needs 2. glucose to improve 3. wt stability 4. skin integrity to impove
[2017-06-14] MEDS: Sodium Chloride 0.45% 1,000 ML IV SCH (12:58)
--- NOTE | 2017-06-14 13:41 | Diagnostic Imaging Report ---
CT angiogram of the abdominal aorta and lower extremities with intravenous contrast (CTA) HISTORY: Ischemic vascular disease Total DLP equals 761 CTDI equals 19.0 Following administration of intravenous contrast, axial sections were obtained from the level of the superior mesenteric artery down to the ankle regions. Mild diffuse atherosclerotic changes with a positive calcification noted along the abdominal aorta. The findings result in mild generalized narrowing of the abdominal aorta. Mild calcified and noncalcified atherosclerotic changes noted within the aorta at the bifurcation with extension into the common iliac artery regions. A combination of calcified and noncalcified atherosclerotic plaque results in moderate (40-50% narrowing in the region of the right common femoral artery. There is mild generalized narrowing through the proximal midportion of the right superficial femoral artery. More pronounced narrowing with calcified and noncalcified atherosclerotic changes noted within the distal portion of the right superficial femoral artery. Minimal flow/opacification noted within the distal most superficial femoral artery along with generalized narrowing within the proximal portion of the right popliteal artery. Calcified plaque noted at the origin of the trifurcation. Little appreciable opacification is seen within the right posterior tibial artery. The right anterior tibial and peroneal arteries are not clearly opacified. A combination of calcified and noncalcified atherosclerotic plaque is noted at the origin of the left superficial femoral artery resulting in approximate 50% narrowing mild to moderate generalized narrowing noted through the left superficial femoral artery. There is patency of the left popliteal artery. Focal calcified atherosclerotic plaque noted at the origin of the trifurcation. Minimal opacification of the proximal portion of left posterior tibial artery that is associated with this views atherosclerotic vascular calcification. The left anterior tibial artery cannot be clearly visualized. IMPRESSION: 1. Virtual complete occlusion with no significant opacification/flow noted through the right calf arteries. Additional mild to moderate diffuse atherosclerotic changes noted through the right superficial femoral artery with somewhat more pronounced narrowing within the distal portion of this artery. Little flow through the right popliteal artery. 2. Minimal opacification/flow through the left calf arteries. Mild diffuse atherosclerotic changes noted through the left superficial femoral artery. 3. Mild diffuse atherosclerotic changes noted through the abdominal aorta and iliac arteries.
[2017-06-14] MEDS ORDERED: Probiotic Screen MC PRN (15:25)
[2017-06-14] MEDS: Potassium Chloride 20 mEq ER Tab PO SCH (18:12)
[2017-06-14] MEDS: Lactobacillus Rhamnosus 10 Billion CFU Capsule PO SCH (18:14)
--- NOTE | 2017-06-14 19:01 | Progress Notes ---
DATE: LOCATION: Room 14, bed 1. SUBJECTIVE: The patient is conscious, alert. The patient did have CT angio of lower extremity today. The patient is waiting for dialysis. OBJECTIVE: VITAL SIGNS: Temperature 98.5, blood pressure 177/76, and heart rate 70. Intake 1850. HEART: Regular. LUNGS: Clear. ABDOMEN: Soft: EXTREMITIES: Warmer. No edema. ASSESSMENT: 1. Chronic kidney disease, stage V, on chronic hemodialysis. 2. Peripheral vascular disease. 3. Anemia. 4. Diabetes mellitus. 5. Hypertension. 6. Hyperlipidemia. PLAN: 1. AV fistula tomorrow. Discussed with the patient, he agreed. Discussed with Dr. Mtz. 2. Dialysis today after CT angio. 3. Discussed with Dr. Mtz, he will review CT angio and will decide further treatment. 4. Outpatient dialysis has been already scheduled. 5. Continue other treatment. JOB# [id number]
--- NOTE | 2017-06-14 23:13 | General Progress Note ---
Subjective - Review of Systems Service Date: 06/14/17 Subjective: Patient seen and examined doing better s/p CT angio today Objective - Results Result Diagrams: 06/13/17 05:30 06/14/17 05:41 Recent Labs: Laboratory Last Values WBC 9.1 Th/cmm (4.8-10.8) D 06/13/17 05:30 RBC 2.96 Mil/cmm (3.80-5.80) L 06/13/17 05:30 Hgb 9.0 gm/dL (12-16) L 06/13/17 05:30 Hct 26.9 % (41.0-60) L 06/13/17 05:30 MCV 90.9 fl (80-99) 06/13/17 05:30 MCH 30.3 pg (27.0-31.0) 06/13/17 05:30 MCHC Differential 33.3 pg (28.0-36.0) 06/13/17 05:30 RDW 14.2 % (11.5-20.0) 06/13/17 05:30 Plt Count 226 Th/cmm (150-400) 06/13/17 05:30 MPV 8.9 fl 06/13/17 05:30 Neutrophils % 63.2 % (40.0-80.0) 06/13/17 05:30 Lymphocytes % 23.5 % (20.0-50.0) 06/13/17 05:30 Monocytes % 10.0 % (2.0-10.0) 06/13/17 05:30 Eosinophils % 2.5 % (0.0-5.0) 06/13/17 05:30 Basophils % 0.8 % (0.0-2.0) 06/13/17 05:30 PT 11.8 SECONDS (9.5-11.5) H 06/09/17 21:29 INR 1.12 (0.5-1.4) 06/09/17 21:29 PTT (Actin FS) 56.6 SECONDS (26.0-38.0) H 06/11/17 12:55 Sodium 136 mEq/L (136-145) 06/14/17 05:41 Potassium 3.3 mEq/L (3.5-5.1) L 06/14/17 05:41 Chloride 100 mEq/L (98-107) 06/14/17 05:41 Carbon Dioxide 28.9 mEq/L (21.0-31.0) 06/14/17 05:41 Anion Gap 10.4 (7.0-16.0) 06/14/17 05:41 BUN 22 mg/dL (7-25) 06/14/17 05:41 Creatinine 2.9 mg/dL (0.7-1.3) H 06/14/17 05:41 Est GFR ( Amer) 28.0 ml/min (>90) 06/14/17 05:41 Est GFR (Non-Af Amer) 23.1 ml/min 06/14/17 05:41 BUN/Creatinine Ratio 7.6 06/14/17 05:41 Glucose 173 mg/dL (70-105) H 06/14/17 05:41 POC Glucose 117 MG/DL (70 - 105) H 06/14/17 20:37 Hemoglobin A1c % 8.0 % (4.0-6.0) H 06/09/17 21:29 Whole Bld Lactic Acid 1.27 mmol/L (0.60-1.99) 06/09/17 21:29 Calcium 8.0 mg/dL (8.6-10.3) L 06/14/17 05:41 Phosphorus 2.9 mg/dL (2.5-5.0) 06/14/17 05:41 Magnesium 1.6 mg/dL (1.9-2.7) L 06/11/17 05:46 Iron 44 ug/dL (38-169) 06/12/17 05:20 TIBC 210 ug/dL (250-450) L 06/12/17 05:20 Iron Saturation 21 % (15-55) 06/12/17 05:20 Unsaturated IBC 166 ug/dL (111-343) 06/12/17 05:20 Total Bilirubin 0.4 mg/dL (0.3-1.0) 06/12/17 05:20 AST 9 U/L (13-39) L 06/12/17 05:20 ALT 5 U/L (7-52) L 06/12/17 05:20 Alkaline Phosphatase 24 U/L (34-104) L 06/12/17 05:20 Creatine Kinase 218 U/L (30-223) 06/09/17 21:29 Troponin I 0.03 ng/mL (0.01-0.05) 06/10/17 15:12 Total Protein 6.4 gm/dL (6.0-8.3) 06/12/17 05:20 Albumin 3.2 gm/dL (4.2-5.5) L 06/12/17 05:20 Globulin 3.2 gm/dL 06/12/17 05:20 Albumin/Globulin Ratio 1.0 (1.0-1.8) 06/12/17 05:20 Triglycerides 190 mg/dL (<150) H 06/11/17 05:46 Cholesterol 212 mg/dL (<200) H 06/11/17 05:46 LDL Cholesterol Direct 176 mg/dL (75-193) 06/11/17 05:46 HDL Cholesterol 27 mg/dL (23-92) 06/11/17 05:46 TSH 5.61 uIU/ml (0.34-5.60) H 06/11/17 05:46 Urine Source MIDSTREAM 06/09/17 23:35 Urine Color YELLOW 06/09/17 23:35 Urine Clarity CLEAR (CLEAR) 06/09/17 23:35 Urine pH 5.5 (4.6 - 8.0) 06/09/17 23:35 Ur Specific [place] 1.020 (1.005-1.030) 06/09/17 23:35 Urine Protein 100 mg/dL (NEGATIVE) H 06/09/17 23:35 Urine Glucose (UA) 250 mg/dL (NEGATIVE) H 06/09/17 23:35 Urine Ketones NEGATIVE mg/dL (NEGATIVE) 06/09/17 23:35 Urine Blood MODERATE (NEGATIVE) H 06/09/17 23:35 Urine Nitrate NEGATIVE (NEGATIVE) 06/09/17 23:35 Urine Bilirubin NEGATIVE (NEGATIVE) 06/09/17 23:35 Urine Urobilinogen 0.2 E.U./dL (0.2 - 1.0) 06/09/17 23:35 Ur Leukocyte Esterase NEGATIVE (NEGATIVE) 06/09/17 23:35 Urine RBC 5-10 /hpf (0-5) H 06/09/17 23:35 Urine WBC NONE SEEN /hpf (0-5) 06/09/17 23:35 Ur Epithelial Cells NONE SEEN /lpf (FEW) 06/09/17 23:35 Urine Bacteria NONE SEEN /hpf (NONE SEEN) 06/09/17 23:35 U Random Total Protein 98.0 mg/dL 06/12/17 09:00 Urine Collection Time 24 hours 06/12/17 09:00 Urine Total Volume 1000 ml 06/12/17 09:00 Urine Creatinine 98.0 mg/dl (39.0-259.0) 06/12/17 09:00 Creat Clearance 24 Hr 12 ml/min (97.00-137.00) L 06/12/17 09:00 U Tot Protein 24h, Calc 980.0 mg/24 hr (0-165) H 06/12/17 09:00 Body Surface Area 1.93 06/12/17 09:00 Random Vancomycin 18.5 ug/mL (5.0-40.0) 06/11/17 05:46 Hepatitis A IgM Ab Negative (Negative) 06/12/17 05:50 Hep Bs Antigen Negative (Negative) 06/12/17 05:50 Hep B Core IgM Ab Negative (Negative) 06/12/17 05:50 Hepatitis C Antibody <0.1 s/co ratio (0.0-0.9) 06/12/17 05:50 - Physical Exam Vitals and I&O: Vital Signs Temp 98.4 F 06/14/17 16:54 Pulse 116 06/14/17 20:33 Resp 18 06/14/17 16:54 BP 202/74 06/14/17 20:33 Pulse Ox 95 06/14/17 16:54 Intake & Output 06/14/17 06/14/17 06/15/17 06:59 18:59 06:59 Intake Total 1250 1020 Output Total 250 Balance 1000 1020 Weight (lbs) 82.327 kg 82.1 kg Intake: Intake, IV Amount 1000 Sodium Chloride 0.45% 1, 1000 000 ml @ 50 mls/hr IV . Q20H [facility] Rx#:[id number] Oral 250 1020 Output: Urine 250 Other: # Voids 1 # Bowel Movements 0 0 Stool Characteristics Soft Soft Active Medications: Current Medications Acetaminophen (Tylenol Extra Strength) 500 mg PO Q4H PRN PRN Reason: Pain or Fever >101 Stop: 08/08/17 22:44 Acetaminophen/Hydrocodone Bitart ([place] 5mg/325mg) 1 tab PO Q6H PRN PRN Reason: Pain (Severe) Stop: 08/08/17 22:28 Last Admin: 06/14/17 04:34 Dose: 1 tab Atorvastatin Calcium (Lipitor) 20 mg PO DAILY [facility] PRN Reason: Protocol Stop: 08/09/17 14:59 Last Admin: 06/14/17 09:37 Dose: Not Given Calcitriol (Rocaltrol) 0.25 mcg PO DAILY [facility] Stop: 08/11/17 08:59 Last Admin: 06/14/17 09:37 Dose: Not Given Cilostazol (Pletal) 50 mg PO BID [facility] Stop: 08/09/17 16:59 Last Admin: 06/14/17 18:05 Dose: 50 mg Clonidine HCl (Tyelispe-Pzz-4) 1 patch TD Th [facility] Stop: 08/09/17 14:14 Last Admin: 06/10/17 15:09 Dose: Not Given Epoetin Drake (Epogen) 10,000 units SUBQ MoWeFr [facility] Stop: 08/10/17 17:29 Last Admin: 06/14/17 19:00 Dose: Not Given Ferrous Sulfate (Iron) 300 mg PO BID [facility] Stop: 08/11/17 08:59 Last Admin: 06/14/17 18:14 Dose: 300 mg Folic Acid (Folate) 1 mg PO DAILY [facility] Stop: 08/11/17 08:59 Last Admin: 06/14/17 09:37 Dose: Not Given Hydralazine HCl (Apresoline) 25 mg PO TID [facility] Stop: 08/09/17 20:59 Last Admin: 06/14/17 20:32 Dose: 25 mg Hydralazine HCl (Apresoline) 50 mg PO TID [facility] Stop: 08/10/17 20:59 Last Admin: 06/14/17 20:33 Dose: 50 mg Sodium Chloride (Nacl 0.45%) 1,000 mls @ 50 mls/hr IV .Q20H [facility] Stop: 08/10/17 18:28 Last Admin: 06/14/17 12:58 Dose: 50 mls/hr Ceftriaxone Sodium 1 gm/ (Dextrose) 50 mls @ 100 mls/hr IV Q24H [facility] Stop: 08/13/17 15:59 Last Admin: 06/14/17 18:01 Dose: Not Given Insulin Aspart (Novolog Insulin Sliding Scale) 0 units SUBQ ACHS [facility] PRN Reason: Protocol Stop: 08/09/17 07:29 Last Admin: 06/14/17 20:37 Dose: Not Given Lactobacillus Rhamnosus (Culturelle) 1 each PO DAILY [facility] Stop: 08/13/17 15:59 Last Admin: 06/14/17 18:14 Dose: 1 each Levothyroxine Sodium (Synthroid) 0.05 mg PO QDAC [facility] Stop: 08/09/17 16:29 Last Admin: 06/14/17 07:09 Dose: Not Given Losartan Potassium (Cozaar) 50 mg PO DAILY [facility] Stop: 08/12/17 08:59 Last Admin: 06/14/17 09:40 Dose: Not Given Miscellaneous (Probiotic Screen) 1 ea MC PRN PRN PRN Reason: PROTOCOL Stop: 08/13/17 15:24 Ondansetron HCl (Zofran) 4 mg IV Q6H PRN PRN Reason: Nausea / Vomiting Stop: 08/08/17 22:29 Potassium Chloride (Klor-Con) 40 meq PO DAILY [facility] Stop: 08/13/17 13:59 Last Admin: 06/14/17 18:12 Dose: 40 meq Sevelamer Carbonate (Renvela) 1,600 mg PO TIDWM [facility] Stop: 08/12/17 07:59 Last Admin: 06/14/17 18:04 Dose: 1,600 mg Sodium Bicarbonate (Sodium Bicarbonate) 1,250 mg PO TID [facility] PRN Reason: Protocol Stop: 08/10/17 13:59 Last Admin: 06/14/17 20:32 Dose: 1,250 mg General: Alert, Oriented x3 Cardiovascular: Regular rate Lungs: Clear to auscultation Extremities: Other (left great toe dusky little purple) Assessment/Plan - Problem List Patient Problems: All Active Problems Abdominal pain (Acute) R10.9 Cholangitis (Acute) K83.0 DM w/o complication type II (Acute) E11.9 Gallbladder stone with nonacute cholecystitis (Acute) K80.10 HTN (hypertension) (Acute) I10 HTN (hypertension), benign (Acute) I10 Leukocytosis (Acute) D72.829 Renal mass (Acute) N28.89 - Assessment Assessment: Left great toe gangrene Severe PVD 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 now HTN - Plan Plan: HD per nephrology S/p CT Angio lower ext further treatment plan per vascular surgery Monitor vitals Plan of care discussed with nursing staff Nutritional Asmnt/Malnutr-PDOC - Dietary Evaluation Malnutrition Findings (Please click <Entered> for more info): Nutritional Asmnt/Malnutrition Start: 06/10/17 14: 59 Text: Status: Complete Freq: Document 06/10/17 14:59 FRANKLIN (Rec: 06/10/17 15:06 FRANKLIN JENKINS-FN) Nutritional Asmnt/Malnutrition Patient General Information Nutritional Screening High Risk Diagnosis left foot cellulitis Pertinent Medical Hx/Surgical Hx HTN, DM, dyslipidemia Subjective Information Pt seen resting in bed, awake and alert. pt speaks Slovenian. Pt reported good appetite, consumed 100% of lunch, "small tray". Pt appeared overweigh. Current Diet Order/ Nutrition Support CCHO 60mg Pertinent Medications novolog, synthroid, vancomycin Pertinent Labs 06/10 Cl 112H, BUN 58H, Cr 4.6 , Glu 144, POC 140-183, TSH 9. 21 06/09 A1C 8.0H, glu 246 Nutritional Hx/Data Height 1.68 m Height (Calculated Centimeters) 167.6 Current Weight (lbs) 82.554 kg Weight (Calculated Kilograms) 82.6 Weight (Calculated Grams) 27679.8 Usual body Weight (lbs) 180 % Usual Body Weight 101 [place] Body Weight 142 % [place] Body Weight 128 Body Mass Index (BMI) 29.3 Weight Status Overweight GI Symptoms GI Symptoms None Difficult in: None Food Allergies No Usual diet at home eat chicken fish often, limit amount of starch, juice, milk. Skin Integrity/Comment: intact Current %PO Good (75-100%) Estimated Nutritional Goals BEE in Kcals: Using Current wt Calories/Kcals/Kg 25-30 Kcals Calculated 3814-3389 Protein: Using Current wt Protein g/k Protein Calculated 83g monitor renal labs Fluid: ml Nutritional Problem 2. Problem Problem altered nutrition related lab values Etiology hx of dm Signs/Symptoms: Glu 144-246, POC 140-183 1. Problem Problem increased nutrition needs ( protein Etiology increased metabolic demand fow wound healing Signs/Symptoms: dx of cellulitis Malnutrition Alert Protein-Calorie Malnutrition N/A Is there a minimum of two criteria No selected? Query Text:Check all the applicable criteria. A minimum of two criteria are recommended for diagnosis of either severe or non-severe malnutrition. Intervention/Recommendation Comments 1. continue with current diet. pt understands diabetic diet and will follow it 2. adjust insulin as needed for optimal glycemic control 3. monitor PO intake, skin integrity, labs, wt weekly 4. F/U as moderate risk in 3-5 days, 06/13-06/15 Expected Outcomes/Goals Expected Outcomes/Goals 1. PO intake to continue > 75% to meet nutritional needs 2. glucose to improve 3. wt stability 4. skin integrity to impove
[2017-06-15 05:53] LABS: % BASOPHILS 1.3 % (0.0-2.0); % EOSINOPHILS 3.8 % (0.0-5.0); % MONOCYTES 9.2 % (2.0-10.0); % NEUTROPHILS 70.7 % (40.0-80.0); HEMATOCRIT 26.8 % (41.0-60); HEMOGLOBIN 9.1 gm/dL (12-16); MEAN CELL VOLUME 90.6 fl (80-99); MEAN CORPUSCULAR HEMOGLOBIN 30.7 pg (27.0-31.0); MEAN CORPUSCULAR HGB CONC 33.9 pg (28.0-36.0); MEAN PLATELET VOLUME 8.2 fl; NEUTROPHILE ABSOLUTE 7.9 Th/cmm (1.8-8.0); PLATELET COUNT 221 Th/cmm (150-400); RED BLOOD COUNT 2.96 Mil/cmm (3.80-5.80); RED CELL DISTRIBUTION WIDTH 14.1 % (11.5-20.0); WHITE BLOOD COUNT 11.1 Th/cmm (4.8-10.8)
[2017-06-15 06:11] LABS: INR 1.11 (0.5-1.4); PROTHROMBIN TIME (TEST) 11.6 SECONDS (9.5-11.5)
[2017-06-15 06:14] LABS: ANION GAP 11.8 (7.0-16.0); BUN/CREATININE RATIO 5.9; CALCIUM SERUM 7.9 mg/dL (8.6-10.3); CREATININE - SERUM 3.7 mg/dL (0.7-1.3); POTASSIUM SERUM 3.8 mEq/L (3.5-5.1)
[2017-06-15] MEDS: INSULIN ASPART SLIDING SCALE 100 UNITS/ML UNIT SUBQ SCH ×3 (06:51→16:42)
[2017-06-15] MEDS: Levothyroxine 0.05 Mg Tab PO SCH (06:51)
[2017-06-15] MEDS ORDERED: Thrombin, Bovine 5,000 IU Vial TP ONE (07:19)
[2017-06-15] MEDS ORDERED: Gelatin Sponge 100cm Spg TP ONE (07:19)
--- NOTE | 2017-06-15 08:31 | Diagnostic Imaging Report ---
Vascular catheter placement (intraoperative fluoroscopic images and services) HISTORY: Vascular catheter placement Intraoperative fluoroscopic images and services were provided for facilitation of a vascular catheter placement. 13 seconds fluoroscopy time was utilized.
[2017-06-15] MEDS ORDERED: Lidocaine 2% Vial 20 mL Vial ONE (08:49)
[2017-06-15] MEDS: Atorvastatin Calcium 10 MG TAB PO SCH (09:10)
[2017-06-15] MEDS ORDERED: fentaNYL Citrate 100 mcg/2mL Vial ONE (09:11)
[2017-06-15] MEDS: Ferrous Sulfate 300 MG/5 ML UDC PO SCH ×2 (09:11→16:42)
--- NOTE | 2017-06-15 10:47 | Diagnostic Imaging Report ---
Portable chest x-ray HISTORY: Shortness of breath Compared with the prior exam of June 12, 2017, a new right-sided vascular catheter is seen with the tip in the region of the superior vena cava. No focal prominent processes. No pneumothorax. IMPRESSION: 1. New vascular catheter placement as noted above 2. No focal pulmonary processes
[2017-06-15] MEDS: Lactobacillus Rhamnosus 10 Billion CFU Capsule PO SCH (11:08)
[2017-06-15] MEDS: Potassium Chloride 20 mEq ER Tab PO SCH (11:08)
--- NOTE | 2017-06-15 12:08 | General Progress Note ---
Subjective - Review of Systems Service Date: 06/14/17 Events since last encounter: CTA noted Plan: per request of Dr. Dk valencia and fistula/shunt in AM Objective - Results Result Diagrams: 06/15/17 05:40 06/15/17 05:40 Recent Labs: Laboratory Last Values WBC 11.1 Th/cmm (4.8-10.8) H D 06/15/17 05:40 RBC 2.96 Mil/cmm (3.80-5.80) L 06/15/17 05:40 Hgb 9.1 gm/dL (12-16) L 06/15/17 05:40 Hct 26.8 % (41.0-60) L 06/15/17 05:40 MCV 90.6 fl (80-99) 06/15/17 05:40 MCH 30.7 pg (27.0-31.0) 06/15/17 05:40 MCHC Differential 33.9 pg (28.0-36.0) 06/15/17 05:40 RDW 14.1 % (11.5-20.0) 06/15/17 05:40 Plt Count 221 Th/cmm (150-400) 06/15/17 05:40 MPV 8.2 fl 06/15/17 05:40 Neutrophils % 70.7 % (40.0-80.0) 06/15/17 05:40 Lymphocytes % 15.0 % (20.0-50.0) L 06/15/17 05:40 Monocytes % 9.2 % (2.0-10.0) 06/15/17 05:40 Eosinophils % 3.8 % (0.0-5.0) 06/15/17 05:40 Basophils % 1.3 % (0.0-2.0) 06/15/17 05:40 PT 11.6 SECONDS (9.5-11.5) H 06/15/17 05:40 INR 1.11 (0.5-1.4) 06/15/17 05:40 PTT (Actin FS) 29.2 SECONDS (26.0-38.0) 06/15/17 05:40 Sodium 134 mEq/L (136-145) L 06/15/17 05:40 Potassium 3.8 mEq/L (3.5-5.1) 06/15/17 05:40 Chloride 100 mEq/L (98-107) 06/15/17 05:40 Carbon Dioxide 26.0 mEq/L (21.0-31.0) 06/15/17 05:40 Anion Gap 11.8 (7.0-16.0) 06/15/17 05:40 BUN 22 mg/dL (7-25) 06/15/17 05:40 Creatinine 3.7 mg/dL (0.7-1.3) H 06/15/17 05:40 Est GFR ( Amer) 21.1 ml/min (>90) 06/15/17 05:40 Est GFR (Non-Af Amer) 17.5 ml/min 06/15/17 05:40 BUN/Creatinine Ratio 5.9 06/15/17 05:40 Glucose 97 mg/dL (70-105) D 06/15/17 05:40 POC Glucose 101 MG/DL (70 - 105) 06/15/17 06:22 Hemoglobin A1c % 8.0 % (4.0-6.0) H 06/09/17 21:29 Whole Bld Lactic Acid 1.27 mmol/L (0.60-1.99) 06/09/17 21:29 Calcium 7.9 mg/dL (8.6-10.3) L 06/15/17 05:40 Phosphorus 2.9 mg/dL (2.5-5.0) 06/14/17 05:41 Magnesium 1.6 mg/dL (1.9-2.7) L 06/11/17 05:46 Iron 44 ug/dL (38-169) 06/12/17 05:20 TIBC 210 ug/dL (250-450) L 06/12/17 05:20 Iron Saturation 21 % (15-55) 06/12/17 05:20 Unsaturated IBC 166 ug/dL (111-343) 06/12/17 05:20 Total Bilirubin 0.4 mg/dL (0.3-1.0) 06/12/17 05:20 AST 9 U/L (13-39) L 06/12/17 05:20 ALT 5 U/L (7-52) L 06/12/17 05:20 Alkaline Phosphatase 24 U/L (34-104) L 06/12/17 05:20 Creatine Kinase 218 U/L (30-223) 06/09/17 21:29 Troponin I 0.03 ng/mL (0.01-0.05) 06/10/17 15:12 Total Protein 6.4 gm/dL (6.0-8.3) 06/12/17 05:20 Albumin 3.2 gm/dL (4.2-5.5) L 06/12/17 05:20 Globulin 3.2 gm/dL 06/12/17 05:20 Albumin/Globulin Ratio 1.0 (1.0-1.8) 06/12/17 05:20 Triglycerides 190 mg/dL (<150) H 06/11/17 05:46 Cholesterol 212 mg/dL (<200) H 06/11/17 05:46 LDL Cholesterol Direct 176 mg/dL (75-193) 06/11/17 05:46 HDL Cholesterol 27 mg/dL (23-92) 06/11/17 05:46 TSH 5.61 uIU/ml (0.34-5.60) H 06/11/17 05:46 Urine Source MIDSTREAM 06/09/17 23:35 Urine Color YELLOW 06/09/17 23:35 Urine Clarity CLEAR (CLEAR) 06/09/17 23:35 Urine pH 5.5 (4.6 - 8.0) 06/09/17 23:35 Ur Specific [place] 1.020 (1.005-1.030) 06/09/17 23:35 Urine Protein 100 mg/dL (NEGATIVE) H 06/09/17 23:35 Urine Glucose (UA) 250 mg/dL (NEGATIVE) H 06/09/17 23:35 Urine Ketones NEGATIVE mg/dL (NEGATIVE) 06/09/17 23:35 Urine Blood MODERATE (NEGATIVE) H 06/09/17 23:35 Urine Nitrate NEGATIVE (NEGATIVE) 06/09/17 23:35 Urine Bilirubin NEGATIVE (NEGATIVE) 06/09/17 23:35 Urine Urobilinogen 0.2 E.U./dL (0.2 - 1.0) 06/09/17 23:35 Ur Leukocyte Esterase NEGATIVE (NEGATIVE) 06/09/17 23:35 Urine RBC 5-10 /hpf (0-5) H 06/09/17 23:35 Urine WBC NONE SEEN /hpf (0-5) 06/09/17 23:35 Ur Epithelial Cells NONE SEEN /lpf (FEW) 06/09/17 23:35 Urine Bacteria NONE SEEN /hpf (NONE SEEN) 06/09/17 23:35 U Random Total Protein 98.0 mg/dL 06/12/17 09:00 Urine Collection Time 24 hours 06/12/17 09:00 Urine Total Volume 1000 ml 06/12/17 09:00 Urine Creatinine 98.0 mg/dl (39.0-259.0) 06/12/17 09:00 Creat Clearance 24 Hr 12 ml/min (97.00-137.00) L 06/12/17 09:00 U Tot Protein 24h, Calc 980.0 mg/24 hr (0-165) H 06/12/17 09:00 Body Surface Area 1.93 06/12/17 09:00 Random Vancomycin 18.5 ug/mL (5.0-40.0) 06/11/17 05:46 Hepatitis A IgM Ab Negative (Negative) 06/12/17 05:50 Hep Bs Antigen Negative (Negative) 06/12/17 05:50 Hep B Core IgM Ab Negative (Negative) 06/12/17 05:50 Hepatitis C Antibody <0.1 s/co ratio (0.0-0.9) 06/12/17 05:50 - Physical Exam Vitals and I&O: Vital Signs Temp 98.5 F 06/15/17 04:00 Pulse 84 06/15/17 11:09 Resp 18 06/15/17 08:00 BP 125/71 06/15/17 11:09 Pulse Ox 95 06/14/17 16:54 Intake & Output 06/14/17 06/15/17 06/15/17 18:59 06:59 18:59 Intake Total 1020 200 Output Total 1999 Balance 1020 -1800 Weight (lbs) 82.1 kg 80.739 kg Intake: Oral 1020 200 Output: Urine 1999 Other: # Voids 1 0 # Bowel Movements 0 Stool Characteristics Soft Soft Soft Active Medications: Current Medications Acetaminophen (Tylenol Extra Strength) 500 mg PO Q4H PRN PRN Reason: Pain or Fever >101 Stop: 08/08/17 22:44 Acetaminophen/Hydrocodone Bitart ([place] 5mg/325mg) 1 tab PO Q6H PRN PRN Reason: Pain (Severe) Stop: 08/08/17 22:28 Last Admin: 06/14/17 04:34 Dose: 1 tab Aspirin (Aspirin Chewable) 81 mg PO DAILY [facility] Stop: 08/15/17 08:59 Atorvastatin Calcium (Lipitor) 20 mg PO DAILY [facility] PRN Reason: Protocol Stop: 08/09/17 14:59 Last Admin: 06/15/17 09:10 Dose: Not Given Calcitriol (Rocaltrol) 0.25 mcg PO DAILY [facility] Stop: 08/11/17 08:59 Last Admin: 06/15/17 09:10 Dose: Not Given Cilostazol (Pletal) 50 mg PO BID [facility] Stop: 08/09/17 16:59 Last Admin: 06/15/17 09:10 Dose: Not Given Clonidine HCl (Fdbsnsmg-Igk-1) 1 patch TD Th [facility] Stop: 08/09/17 14:14 Last Admin: 06/10/17 15:09 Dose: Not Given Epoetin Drake (Epogen) 10,000 units SUBQ MoWeFr [facility] Stop: 08/10/17 17:29 Last Admin: 06/14/17 19:00 Dose: Not Given Ferrous Sulfate (Iron) 300 mg PO BID [facility] Stop: 08/11/17 08:59 Last Admin: 06/15/17 09:11 Dose: Not Given Folic Acid (Folate) 1 mg PO DAILY [facility] Stop: 08/11/17 08:59 Last Admin: 06/15/17 11:10 Dose: Not Given Hydralazine HCl (Apresoline) 25 mg PO TID [facility] Stop: 08/09/17 20:59 Last Admin: 06/15/17 11:02 Dose: Not Given Hydralazine HCl (Apresoline) 50 mg PO TID [facility] Stop: 08/10/17 20:59 Last Admin: 06/15/17 11:09 Dose: Not Given Sodium Chloride (Nacl 0.45%) 1,000 mls @ 50 mls/hr IV .Q20H [facility] Stop: 08/10/17 18:28 Last Admin: 06/14/17 12:58 Dose: 50 mls/hr Ceftriaxone Sodium 1 gm/ (Dextrose) 50 mls @ 100 mls/hr IV Q24H [facility] Stop: 08/13/17 15:59 Last Admin: 06/14/17 18:01 Dose: Not Given Insulin Aspart (Novolog Insulin Sliding Scale) 0 units SUBQ ACHS [facility] PRN Reason: Protocol Stop: 08/09/17 07:29 Last Admin: 06/15/17 11:19 Dose: Not Given Lactobacillus Rhamnosus (Culturelle) 1 each PO DAILY [facility] Stop: 08/13/17 15:59 Last Admin: 06/15/17 11:08 Dose: Not Given Levothyroxine Sodium (Synthroid) 0.05 mg PO QDAC [facility] Stop: 08/09/17 16:29 Last Admin: 06/15/17 06:51 Dose: Not Given Losartan Potassium (Cozaar) 50 mg PO DAILY [facility] Stop: 08/12/17 08:59 Last Admin: 06/15/17 11:09 Dose: Not Given Miscellaneous (Probiotic Screen) 1 ea MC PRN PRN PRN Reason: PROTOCOL Stop: 08/13/17 15:24 Ondansetron HCl (Zofran) 4 mg IV Q6H PRN PRN Reason: Nausea / Vomiting Stop: 08/08/17 22:29 Potassium Chloride (Klor-Con) 40 meq PO DAILY [facility] Stop: 08/13/17 13:59 Last Admin: 06/15/17 11:08 Dose: Not Given Sevelamer Carbonate (Renvela) 1,600 mg PO TIDWM [facility] Stop: 08/12/17 07:59 Last Admin: 06/15/17 11:19 Dose: 1,600 mg Sodium Bicarbonate (Sodium Bicarbonate) 1,250 mg PO TID [facility] PRN Reason: Protocol Stop: 08/10/17 13:59 Last Admin: 06/15/17 11:09 Dose: Not Given General: Alert, Oriented x3 Cardiovascular: Regular rate Lungs: Clear to auscultation Extremities: Other (left great toe dusky little purple) Assessment/Plan - Problem List Patient Problems: All Active Problems Abdominal pain (Acute) R10.9 Cholangitis (Acute) K83.0 DM w/o complication type II (Acute) E11.9 Gallbladder stone with nonacute cholecystitis (Acute) K80.10 HTN (hypertension) (Acute) I10 HTN (hypertension), benign (Acute) I10 Leukocytosis (Acute) D72.829 Renal mass (Acute) N28.89 Nutritional Asmnt/Malnutr-PDOC - Dietary Evaluation Malnutrition Findings (Please click <Entered> for more info): Nutritional Asmnt/Malnutrition Start: 06/10/17 14: 59 Text: Status: Complete Freq: Document 06/10/17 14:59 DAVIDSHARATH (Rec: 06/10/17 15:06 DAVIDSHARAHT [email or web address]) Nutritional Asmnt/Malnutrition Patient General Information Nutritional Screening High Risk Diagnosis left foot cellulitis Pertinent Medical Hx/Surgical Hx HTN, DM, dyslipidemia Subjective Information Pt seen resting in bed, awake and alert. pt speaks Polish. Pt reported good appetite, consumed 100% of lunch, "small tray". Pt appeared overweigh. Current Diet Order/ Nutrition Support CCHO 60mg Pertinent Medications novolog, synthroid, vancomycin Pertinent Labs 06/10 Cl 112H, BUN 58H, Cr 4.6 , Glu 144, POC 140-183, TSH 9. 21 06/09 A1C 8.0H, glu 246 Nutritional Hx/Data Height 1.68 m Height (Calculated Centimeters) 167.6 Current Weight (lbs) 82.554 kg Weight (Calculated Kilograms) 82.6 Weight (Calculated Grams) 80725.8 Usual body Weight (lbs) 180 % Usual Body Weight 101 [place] Body Weight 142 % [place] Body Weight 128 Body Mass Index (BMI) 29.3 Weight Status Overweight GI Symptoms GI Symptoms None Difficult in: None Food Allergies No Usual diet at home eat chicken fish often, limit amount of starch, juice, milk. Skin Integrity/Comment: intact Current %PO Good (75-100%) Estimated Nutritional Goals BEE in Kcals: Using Current wt Calories/Kcals/Kg 25-30 Kcals Calculated 0437-4008 Protein: Using Current wt Protein g/k Protein Calculated 83g monitor renal labs Fluid: ml 7662-4665 Nutritional Problem 2. Problem Problem altered nutrition related lab values Etiology hx of dm Signs/Symptoms: Glu 144-246, POC 140-183 1. Problem Problem increased nutrition needs ( protein Etiology increased metabolic demand fow wound healing Signs/Symptoms: dx of cellulitis Malnutrition Alert Protein-Calorie Malnutrition N/A Is there a minimum of two criteria No selected? Query Text:Check all the applicable criteria. A minimum of two criteria are recommended for diagnosis of either severe or non-severe malnutrition. Intervention/Recommendation Comments 1. continue with current diet. pt understands diabetic diet and will follow it 2. adjust insulin as needed for optimal glycemic control 3. monitor PO intake, skin integrity, labs, wt weekly 4. F/U as moderate risk in 3-5 days, 06/13-06/15 Expected Outcomes/Goals Expected Outcomes/Goals 1. PO intake to continue > 75% to meet nutritional needs 2. glucose to improve 3. wt stability 4. skin integrity to impove
--- NOTE | 2017-06-15 13:28 | History & Physical ---
ADMIT DATE: 06/10/2017 ADDENDUM Hence heparin to be instituted now pending further discussion with the specialist and the patient. Nephrology evaluation will be done to determine if the patient can undergo CT angiogram. Depending on the result of that study, we will recommend further treatment. JOB# [id number]
--- NOTE | 2017-06-15 14:03 | Operative Report ---
DATE OF SURGERY: 06/15/2017 PREOPERATIVE DIAGNOSES: 1. End-stage renal disease. 2. Diabetes mellitus. 3. Left great toe cellulitis. POSTOPERATIVE DIAGNOSES: 1. End-stage renal disease. 2. Diabetes mellitus. 3. Left great toe cellulitis. OPERATION DONE: 1. Left arm Zainab fistula. 2. Placement of Perm-A-Cath right subclavian vein under fluoroscopy. SURGEON: Smith Campos MD ANESTHESIA: MAC. ANESTHESIOLOGIST: ____ Informed consent discussed with the patient regarding the need for the procedure in view of his end-stage renal disease. Dr. Root has convinced the patient to undergo the procedure. DESCRIPTION OF PROCEDURE: The patient was given IV sedation. The right chest at the exit site of the catheter was prepped with Betadine and draped in appropriate manner. Lidocaine 1% was used to infiltrate the exit site of the catheter. A guidewire was inserted under fluoroscopy and this followed the course into the inferior vena cava. The old catheter was removed and the introducer was placed over the guidewire and a 24 cm Perm-A-Cath was inserted into the introducer under fluoroscopy. The tip of the catheter goes into the inferior vena cava. This secured in place with a 2-0 nylon. The left arm was prepped with Betadine and draped in appropriate manner. Lidocaine 1% was used to infiltrate the antecubital fossa. An incision made along the skin line. Bleeders were electrocoagulated. The median cubital vein was found to be of good quality and size. It was dissected free and transected proximally. The brachial artery was identified and isolated. Heparin 3000 units was given intravenously. An arteriotomy was made on anterolateral wall and an end-to-side anastomosis with the vein was done utilizing running suture of 5-0 Prolene. PLAN: Release of clamps. There was excellent flow palpable the vein and heard by Doppler. The incision was closed with running suture of 4-0 Vicryl. Sterile dressing was placed over this. The patient will be sent home on aspirin. JOB# [id number]
--- NOTE | 2017-06-15 21:44 | General Progress Note ---
Subjective - Review of Systems Service Date: 06/15/17 Subjective: Patient seen and examined doing better s/p AV fistula placement denied any complaints Objective - Results Result Diagrams: 06/15/17 05:40 06/15/17 05:40 Recent Labs: Laboratory Last Values WBC 11.1 Th/cmm (4.8-10.8) H D 06/15/17 05:40 RBC 2.96 Mil/cmm (3.80-5.80) L 06/15/17 05:40 Hgb 9.1 gm/dL (12-16) L 06/15/17 05:40 Hct 26.8 % (41.0-60) L 06/15/17 05:40 MCV 90.6 fl (80-99) 06/15/17 05:40 MCH 30.7 pg (27.0-31.0) 06/15/17 05:40 MCHC Differential 33.9 pg (28.0-36.0) 06/15/17 05:40 RDW 14.1 % (11.5-20.0) 06/15/17 05:40 Plt Count 221 Th/cmm (150-400) 06/15/17 05:40 MPV 8.2 fl 06/15/17 05:40 Neutrophils % 70.7 % (40.0-80.0) 06/15/17 05:40 Lymphocytes % 15.0 % (20.0-50.0) L 06/15/17 05:40 Monocytes % 9.2 % (2.0-10.0) 06/15/17 05:40 Eosinophils % 3.8 % (0.0-5.0) 06/15/17 05:40 Basophils % 1.3 % (0.0-2.0) 06/15/17 05:40 PT 11.6 SECONDS (9.5-11.5) H 06/15/17 05:40 INR 1.11 (0.5-1.4) 06/15/17 05:40 PTT (Actin FS) 29.2 SECONDS (26.0-38.0) 06/15/17 05:40 Sodium 134 mEq/L (136-145) L 06/15/17 05:40 Potassium 3.8 mEq/L (3.5-5.1) 06/15/17 05:40 Chloride 100 mEq/L (98-107) 06/15/17 05:40 Carbon Dioxide 26.0 mEq/L (21.0-31.0) 06/15/17 05:40 Anion Gap 11.8 (7.0-16.0) 06/15/17 05:40 BUN 22 mg/dL (7-25) 06/15/17 05:40 Creatinine 3.7 mg/dL (0.7-1.3) H 06/15/17 05:40 Est GFR ( Amer) 21.1 ml/min (>90) 06/15/17 05:40 Est GFR (Non-Af Amer) 17.5 ml/min 06/15/17 05:40 BUN/Creatinine Ratio 5.9 06/15/17 05:40 Glucose 97 mg/dL (70-105) D 06/15/17 05:40 POC Glucose 101 MG/DL (70 - 105) 06/15/17 06:22 Hemoglobin A1c % 8.0 % (4.0-6.0) H 06/09/17 21:29 Whole Bld Lactic Acid 1.27 mmol/L (0.60-1.99) 06/09/17 21:29 Calcium 7.9 mg/dL (8.6-10.3) L 06/15/17 05:40 Phosphorus 2.9 mg/dL (2.5-5.0) 06/14/17 05:41 Magnesium 1.6 mg/dL (1.9-2.7) L 06/11/17 05:46 Iron 44 ug/dL (38-169) 06/12/17 05:20 TIBC 210 ug/dL (250-450) L 06/12/17 05:20 Iron Saturation 21 % (15-55) 06/12/17 05:20 Unsaturated IBC 166 ug/dL (111-343) 06/12/17 05:20 Total Bilirubin 0.4 mg/dL (0.3-1.0) 06/12/17 05:20 AST 9 U/L (13-39) L 06/12/17 05:20 ALT 5 U/L (7-52) L 06/12/17 05:20 Alkaline Phosphatase 24 U/L (34-104) L 06/12/17 05:20 Creatine Kinase 218 U/L (30-223) 06/09/17 21:29 Troponin I 0.03 ng/mL (0.01-0.05) 06/10/17 15:12 Total Protein 6.4 gm/dL (6.0-8.3) 06/12/17 05:20 Albumin 3.2 gm/dL (4.2-5.5) L 06/12/17 05:20 Globulin 3.2 gm/dL 06/12/17 05:20 Albumin/Globulin Ratio 1.0 (1.0-1.8) 06/12/17 05:20 Triglycerides 190 mg/dL (<150) H 06/11/17 05:46 Cholesterol 212 mg/dL (<200) H 06/11/17 05:46 LDL Cholesterol Direct 176 mg/dL (75-193) 06/11/17 05:46 HDL Cholesterol 27 mg/dL (23-92) 06/11/17 05:46 TSH 5.61 uIU/ml (0.34-5.60) H 06/11/17 05:46 PTH Intact 91 pg/mL (15-65) H 06/12/17 05:20 Urine Source MIDSTREAM 06/09/17 23:35 Urine Color YELLOW 06/09/17 23:35 Urine Clarity CLEAR (CLEAR) 06/09/17 23:35 Urine pH 5.5 (4.6 - 8.0) 06/09/17 23:35 Ur Specific [place] 1.020 (1.005-1.030) 06/09/17 23:35 Urine Protein 100 mg/dL (NEGATIVE) H 06/09/17 23:35 Urine Glucose (UA) 250 mg/dL (NEGATIVE) H 06/09/17 23:35 Urine Ketones NEGATIVE mg/dL (NEGATIVE) 06/09/17 23:35 Urine Blood MODERATE (NEGATIVE) H 06/09/17 23:35 Urine Nitrate NEGATIVE (NEGATIVE) 06/09/17 23:35 Urine Bilirubin NEGATIVE (NEGATIVE) 06/09/17 23:35 Urine Urobilinogen 0.2 E.U./dL (0.2 - 1.0) 06/09/17 23:35 Ur Leukocyte Esterase NEGATIVE (NEGATIVE) 06/09/17 23:35 Urine RBC 5-10 /hpf (0-5) H 06/09/17 23:35 Urine WBC NONE SEEN /hpf (0-5) 06/09/17 23:35 Ur Epithelial Cells NONE SEEN /lpf (FEW) 06/09/17 23:35 Urine Bacteria NONE SEEN /hpf (NONE SEEN) 06/09/17 23:35 U Random Total Protein 98.0 mg/dL 06/12/17 09:00 Urine Collection Time 24 hours 06/12/17 09:00 Urine Total Volume 1000 ml 06/12/17 09:00 Urine Creatinine 98.0 mg/dl (39.0-259.0) 06/12/17 09:00 Creat Clearance 24 Hr 12 ml/min (97.00-137.00) L 06/12/17 09:00 U Tot Protein 24h, Calc 980.0 mg/24 hr (0-165) H 06/12/17 09:00 Body Surface Area 1.93 06/12/17 09:00 Random Vancomycin 18.5 ug/mL (5.0-40.0) 06/11/17 05:46 Hepatitis A IgM Ab Negative (Negative) 06/12/17 05:50 Hep Bs Antigen Negative (Negative) 06/12/17 05:50 Hep B Core IgM Ab Negative (Negative) 06/12/17 05:50 Hepatitis C Antibody <0.1 s/co ratio (0.0-0.9) 06/12/17 05:50 - Physical Exam Vitals and I&O: Vital Signs Temp 99.0 F 06/15/17 16:19 Pulse 81 06/15/17 16:19 Resp 18 06/15/17 16:19 BP 113/71 06/15/17 16:19 Pulse Ox 100 06/15/17 16:19 Intake & Output 06/15/17 06/15/17 06/16/17 06:59 18:59 06:59 Intake Total 200 Output Total 2000 Balance -1800 Weight (lbs) 80.739 kg Intake: Oral 200 Output: Urine 2000 Other: # Voids 0 Stool Characteristics Soft Soft General: Alert, Oriented x3 Cardiovascular: Regular rate Lungs: Clear to auscultation Extremities: Other (left great toe dusky little purple) Assessment/Plan - Problem List Patient Problems: All Active Problems Abdominal pain (Acute) R10.9 Cholangitis (Acute) K83.0 DM w/o complication type II (Acute) E11.9 Gallbladder stone with nonacute cholecystitis (Acute) K80.10 HTN (hypertension) (Acute) I10 HTN (hypertension), benign (Acute) I10 Leukocytosis (Acute) D72.829 Renal mass (Acute) N28.89 - Assessment Assessment: Left great toe gangrene better Severe PVD 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 now HTN - Plan Plan: Case was discussed with nephrology cleared for discharge home today Out patient HD was arranged DC plan was discussed with the patient Nutritional Asmnt/Malnutr-PDOC - Dietary Evaluation Malnutrition Findings (Please click <Entered> for more info): Nutritional Asmnt/Malnutrition Start: 06/10/17 14: 59 Text: Status: Complete Freq: Document 06/10/17 14:59 [place] (Rec[facility] 06[facility]10/17 15[facility] Nutritional Asmnt/Malnutrition Patient General Information Nutritional Screening High Risk Diagnosis left foot cellulitis Pertinent Medical Hx/Surgical Hx HTN, DM, dyslipidemia Subjective Information Pt seen resting in bed, awake and alert. pt speaks Frisian. Pt reported good appetite, consumed 100% of lunch, "small tray". Pt appeared overweigh. Current Diet Order/ Nutrition Support CCHO 60mg Pertinent Medications novolog, synthroid, vancomycin Pertinent Labs 06/10 Cl 112H, BUN 58H, Cr 4.6 , Glu 144, POC 140-183, TSH 9. 21 06/09 A1C 8.0H, glu 246 Nutritional Hx/Data Height 1.68 m Height (Calculated Centimeters) 167.6 Current Weight (lbs) 82.554 kg Weight (Calculated Kilograms) 82.6 Weight (Calculated Grams) 02380.8 Usual body Weight (lbs) 180 % Usual Body Weight 101 [place] Body Weight 142 % [place] Body Weight 128 Body Mass Index (BMI) 29.3 Weight Status Overweight GI Symptoms GI Symptoms None Difficult in: None Food Allergies No Usual diet at home eat chicken fish often, limit amount of starch, juice, milk. Skin Integrity/Comment: intact Current %PO Good (75-100%) Estimated Nutritional Goals BEE in Kcals: Using Current wt Calories/Kcals/Kg 25-30 Kcals Calculated 1586-2431 Protein: Using Current wt Protein g/k Protein Calculated 83g monitor renal labs Fluid: ml 1117-0585 Nutritional Problem 2. Problem Problem altered nutrition related lab values Etiology hx of dm Signs/Symptoms: Glu 144-246, POC 140-183 1. Problem Problem increased nutrition needs ( protein Etiology increased metabolic demand fow wound healing Signs/Symptoms: dx of cellulitis Malnutrition Alert Protein-Calorie Malnutrition N/A Is there a minimum of two criteria No selected? Query Text:Check all the applicable criteria. A minimum of two criteria are recommended for diagnosis of either severe or non-severe malnutrition. Intervention/Recommendation Comments 1. continue with current diet. pt understands diabetic diet and will follow it 2. adjust insulin as needed for optimal glycemic control 3. monitor PO intake, skin integrity, labs, wt weekly 4. F/U as moderate risk in 3-5 days, 06/13-06/15 Expected Outcomes/Goals Expected Outcomes/Goals 1. PO intake to continue > 75% to meet nutritional needs 2. glucose to improve 3. wt stability 4. skin integrity to impove
--- NOTE | 2017-06-16 03:16 | Progress Notes ---
DATE: 06/15/2017 LOCATION [facility]. Room 14, bed 2. The patient is conscious, alert. The patient underwent right Perm-A-Cath and left upper extremity AV fistula surgery today. The patient has minimal pain. PHYSICAL EXAMINATION: VITAL SIGNS: Temperature 97.4, blood pressure 125/71, respirations 18, pulse 96. The patient had dialysis yesterday. HEART: Regular. LUNGS: Clear. ABDOMEN: Soft. EXTREMITIES: No edema. ASSESSMENT: 1. CKD 5, on chronic hemodialysis. 2. Diabetes mellitus. 3. Hypertension. 4. Anemia. 5. Hypothyroidism. 6. Hyperlipidemia. 7. Obesity. 8. Left upper extremity AV fistula. 9. Right subclavian Perm-A-Cath. PLAN: The patient wants to go home. The patient's renal status is stable to go home. I will arrange discharge planning with advanced dialysis center. If it is done, then patient is safe to be discharged. JOB# [id number]
[2017-06-16] MEDS ORDERED: Aspirin 81mg Chewable Tab PO SCH (09:00)
== END 2017-06-15 17:11 | disposition home or self-care (01) | DRG 710 ==
LOC: ER 20:40 → MSI 22:30 → TELE 06-10 00:30 → MSI 06-11 15:38 → TELE 06-11 15:48
PROVIDERS: ADMIT Family Medicine; ATTEND Family Medicine
PROC: 02HV33Z Insertion of Infusion Device into Superior Vena Cava, Percutaneous Approach (ICD-10-PCS; principal; 2017-06-12)
PROC: 5A1D70Z Performance of Urinary Filtration, Intermittent, Less than 6 Hours Per Day (ICD-10-PCS; 2017-06-12)
PROC: B548ZZA Ultrasonography of Superior Vena Cava, Guidance (ICD-10-PCS; 2017-06-12)
PROC: 5A1D70Z Performance of Urinary Filtration, Intermittent, Less than 6 Hours Per Day (ICD-10-PCS; 2017-06-13)
PROC: 5A1D70Z Performance of Urinary Filtration, Intermittent, Less than 6 Hours Per Day (ICD-10-PCS; 2017-06-14)
PROC: 03180ZD Bypass Left Brachial Artery to Upper Arm Vein, Open Approach (ICD-10-PCS; 2017-06-15)
PROC: 05PYX3Z Removal of Infusion Device from Upper Vein, External Approach (ICD-10-PCS; 2017-06-15)
PROC: 06H033Z Insertion of Infusion Device into Inferior Vena Cava, Percutaneous Approach (ICD-10-PCS; 2017-06-15)
DX: A41.9 Sepsis, unspecified organism (principal); N17.9 Acute kidney failure, unspecified; I96 Gangrene, not elsewhere classified; I12.0 Hypertensive chronic kidney disease with stage 5 chronic kidney disease or end stage renal disease; E11.22 Type 2 diabetes mellitus with diabetic chronic kidney disease; N18.6 End stage renal disease; E11.319 Type 2 diabetes mellitus with unspecified diabetic retinopathy without macular edema; E11.52 Type 2 diabetes mellitus with diabetic peripheral angiopathy with gangrene; L03.032 Cellulitis of left toe; E11.65 Type 2 diabetes mellitus with hyperglycemia; I16.1 Hypertensive emergency; E66.9 Obesity, unspecified; E87.1 Hypo-osmolality and hyponatremia; E87.6 Hypokalemia; E78.5 Hyperlipidemia, unspecified; D50.9 Iron deficiency anemia, unspecified; D63.1 Anemia in chronic kidney disease; G47.33 Obstructive sleep apnea (adult) (pediatric); Z68.28 Body mass index [BMI] 28.0-28.9, adult; Z82.49 Family history of ischemic heart disease and other diseases of the circulatory system; Z83.3 Family history of diabetes mellitus
CPT/HCPCS: 36415-UA; 71010-TC; 73630-TC-LT; 76000-TC; 76770-TC; 80048-TC; 80053-TC; 80061-TC; 80074-90; 80202-TC; 81001-TC; 81050-TC; 82550-TC; 82575-TC; 82948-90; 83036-90; 83540-90; 83550-90; 83605; 83735-TC; 83970-90; 84100-TC; 84156-TC; 84443-TC; 84484-TC; 85025-TC; 85610-TC; 85730-TC; 87086-90; 90799; 93005; 93926-LT-TC; 96375; 96379; J0696; J0885; J1644; J1815; J2001; J2270; J2704; J3010; J3370; J7030; V2790; X6494; Z7610

== ENCOUNTER 2017-06-19 21:35 | Emergency (ER) | payer MEDICAID ==
[2017-06-19] MEDS ORDERED: Triple Antibiotic 0.94 gm Pkt TP ONE (22:43)
[2017-06-19] MEDS ORDERED: Triple Antibiotic 0.94 gm Pkt TP STA (22:44)
--- NOTE | 2017-06-19 22:46 | ED Physician Chart ---
ED Chief Complaint/HPI - Patient Information Date Seen:: 06/19/17 Time Seen:: 22:27 Chief Complaint:: LEAKAGE OF FLUID FROM THE SURGICAL INCISSION IN THE LT ANTICUBITAL FOSSA. History of Present Illness:: THIS 66 YEAR OLD MALE WITH HTN, DM AND CRF UNDERWENT INSERTION OF A CININO FISTULA ON JUN 15 (4 DAYS AGO) SINCE THEN HE HAS NOTICED SWELLING IN THE LT UPPER EXTEREMITY AND UP UNTIL YESTERDAY WAS HAVING TENDERNESS THAT TODAY WAS COMPLETELY GONE. THE SWELLING HAS GONE DOWN IN THE PAST 2 DAYS. 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 HE DENIES AND FEVER, CHILLS, REDNESS OR DIAPHORESIS. Allergies:: Allergies Allergy/AdvReac Type Severity Reaction Status Date / Time No Known Allergies Allergy Verified 06/09/17 21:21 Vitals:: Vital Signs - 8 hr 06/19/17 21:40 Temp 98.9 F HR 76 RR 20 BP 191/75 O2 Sat % 97 ED Review of Systems - Review of Systems General/Constitutional: No fever, Chills, No weakness, No diaphoresis, No loss of appetite Skin: No skin lesions, No rash, Bruising, Other (BRUISING IN THE FOREARM DISTAL TO THE INCISSION OVER THE VOLAR SURFACE.) Head: No headache, No light-headedness Eyes: No loss of vision, No pain, No diplopia ENT: No earache, No sore throat Neck: No neck pain, No swelling, No stiffness, No mass noted Cardio Vascular: No chest pain, No palpitations, No PND, edema Pulmonary: No SOB, No cough, No sputum, No wheezing GI: No nausea, No vomiting, No diarrhea, No pain, No hematemesis G/U: No dysuria, No hematuria, No nacturia Musculoskeletal: No bone or joint pain, No muscle pain Psychiatric: No prior psych history, No depression, No anxiety, No suicidal ideation Hematopoietic: Bruising, No lymphadenopathy Allergic/Immuno: No urticaria, No angioedema Neurological: No syncope, No focal symptoms, No weakness, No paresthesia, No headache, No seizure, No dizziness, No confusion, No vertigo ED Past Medical History - Past Medical History Past Medical History: HTN, DM, Other (CRF) Social History: Non Smoker, No Alcohol, No Drug Use, 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 Psychiatricy History: None Family Medical History - Family Member Mother History Unknown: Yes Ethnicity: Living Status: Unknown Hx Family Cancer: No Hx Family Coronary Artery Disease: No Hx Family Congestive Heart Failure: No Hx Family Hypertension: No Hx Family Stroke: No Hx Family Diabetes: No Hx Family Seizures: No Hx Family Dementia: No Hx Family AIDS: No Hx Family HIV: No Hx Family COPD: No Hx Family Hepatitis: No Hx Family Psychiatric Problems: No Hx Family Tuberculosis: No ED Physical Exam - Physical Examination General/Constitutional: Awake, Well-developed, well-nourished, Alert, No distress, Non-toxic appearing, Ambulatory Head: Atraumatic Eyes: Lids, conjuctiva normal, PERRL, EOMI Skin: No rash, No skin lesions, Well hydrated Other Skin comments:: There was ecchymotic discoloration noted distal to the incision in the left antecubital fossa. ENMT: External ears, nose nl, TM canals nl, Nasal exam nl, Oropharynx nl, Tonsils nl Other ENMT comments:: Patient almost completely edentulous with only 2 teeth in the mouth. Neck: Nontender, Full ROM w/o pain, No JVD, No nuchal rigidity, No bruit, No mass, No stridor Respiratory: Nl effort/Exclusion, Clear to Auscultation, No Wheeze/Rhonchi/Rales Cardio Vascular: RRR, No murmur, gallop, rubs, NL S1 S2 Other Cardio Vascular comments:: Good distal pulses in all 4 extremities. Capillary refill less than 3 seconds in all 4 extremities. GI: No tenderness/rebounding/guarding, No organomegaly, No hernia, Normal BS's, Nondistended, No mass/bruits, No McBurney tenderness Other GI comments:: Rectal examination deferred at my discretion. : No CVA tenderness Other Extremities comments:: There was mild edema in the left upper extremity which the patient states is improving. Neuro/Psych: Alert/oriented, Normal sensory exam, Normal motor strength, Judgement/insight normal, Mood normal, Normal gait, No focal deficits Misc: Normal back, No paraspinal tenderness ED Labs/Radiology/EKG Results - Lab Results Results: NO LAB OR RADIOLOGY STUDIES INDICATED. ED Assessment - Assessment General Assessment: CASE SUMMARY: This 66-year-old male had placement of a dialysis shunt in the region of his left anti-cubital fossa 4 days ago. Since then he has had swelling in the left upper extremity, tenderness and drainage from the incision site. Over the past 2 days the tenderness and swelling has improved markedly but he still continues to have drainage from the site of the surgical incision. On physical examination the surgical site appeared clean and noninfected. Patient's had some ecchymotic discoloration of the forearm distal to the elbow consistent with surgical bleeding. The incision was dressed with triple antibiotic ointment and covered with gauze. Patient was given a splint for the left upper extremity and advised to come back to the emergency department if his symptoms worsen. Otherwise he could follow up with his primary care doctor and/or his surgeon as routinely scheduled. Discharged in stable condition. MDM DDX DRAINAGE FROM INCISION SITE IN LT UPPER EXTREMITY: NOT cellulitis based on the patient's history and physical exam. NOT superficial or venous thrombophlebitis based on history and physical examination. NOT superior vena cava syndrome based on physical exam. ED Septic Shock - . Is Septic Shock (SBP<90, OR Lactate>4 mmol\L) present?: No - <6hrs of presentation: Vital Signs: Vital Signs - 8 hr 06/19/ 21:40 Temp 98.9 F HR 76 RR 20 BP 191/75 O2 Sat % 97 ED Reassessment (Disposition) - Reassessment Reassessment Condition:: Improved - Diagnosis Diagnosis:: WOUND CHECK LT UPPER EXTREMITY IN ANTICUBITAL FOSSA, HYPERTENSION, DIABETES MELLITUS, CHRONIC RENAL FAILURE. RETURN TO THE ER IF YOUR SYMPTOMS WORSEN OR FOR FEVER OR CHILLS. FOLLOW UP WITH DR. MARSHALL SCHEDULED. ED Discharge Plan - Patient Disposition Admit/Discharge/Transfer: PT DISCHARGED HOME Condition at Disposition: Improved Instructions: Wound Check, Hypertension, [id number], Arteriovenous (AV) Access for Hemodialysis Additional Instructions: follow up with primary doctor within 1-2 days for surgical wound check. return to er for worsening symptoms
== END 2017-06-19 23:15 | disposition home or self-care (01) ==
LOC: ER 21:35
DX: T82.898A Other specified complication of vascular prosthetic devices, implants and grafts, initial encounter (principal); I13.0 Hypertensive heart and chronic kidney disease with heart failure and stage 1 through stage 4 chronic kidney disease, or unspecified chronic kidney disease; E11.22 Type 2 diabetes mellitus with diabetic chronic kidney disease; N18.9 Chronic kidney disease, unspecified; I50.9 Heart failure, unspecified
CPT/HCPCS: Z7502

== ENCOUNTER 2018-08-07 02:03 | Inpatient (IN) | payer MEDICAID ==
[2018-08-07 02:36] LABS: % LYMPHOCYTES 16.2 % (20.0-50.0); RED CELL DISTRIBUTION WIDTH 14.2 % (11.5-20.0)
--- NOTE | 2018-08-07 02:39 | ED Physician Chart ---
ED Chief Complaint/HPI - Patient Information Date Seen:: 08/07/18 Time Seen:: 02:03 Chief Complaint:: chest pain History of Present Illness:: this is a 67 yo irish male with two days of chest pain, substernal and non- radiating. the pain is 5/10 with no nausea or vomiting. he denies sob, abdominal pain and diaphoresis. he is a dialysis patient and was last dialized yesterday. he denies taking any of his medication except for hypertension. Allergies:: Allergies Allergy/AdvReac Type Severity Reaction Status Date / Time No Known Allergies Allergy Verified 08/07/18 02:18 Vitals:: Vital Signs - 8 hr 08/07/18 02:05 Temp 96.0 F HR 66 RR 20 BP 155/78 O2 Sat % 90 Historian:: Patient Review:: Nurse's Note Reviewed, Old Chart Reviewed ED Review of Systems - Review of Systems General/Constitutional: No fever, No chills, No weight loss, No weakness, No diaphoresis, No edema, No loss of appetite Skin: No skin lesions, No rash, No bruising Head: No headache, No light-headedness Eyes: No loss of vision, No pain, No diplopia ENT: No earache, No nasal drainage, No sore throat, No tinnitus Neck: No neck pain, No swelling, No thyromegaly, No stiffness, No mass noted Cardio Vascular: Chest pain, No palpitations, No PND, No orthopnea, No edema Pulmonary: No SOB, No cough, No sputum, No wheezing GI: Nausea, No vomiting, No diarrhea, No pain, No melena, No hematochezia, No constipation, No hematemesis G/U: No dysuria, No frequency, No hematuria Musculoskeletal: No bone or joint pain, No back pain, No muscle pain Endocrine: No polyuria, No polydipsia Psychiatric: No prior psych history, No depression, No anxiety, No suicidal ideation Hematopoietic: No bruising, No lymphadenopathy Allergic/Immuno: No urticaria, No angioedema Neurological: No syncope, No focal symptoms, No weakness, No paresthesia, No headache, No seizure, No dizziness, No confusion, No vertigo ED Past Medical History - Past Medical History Obtainable: Yes Past Medical History: HTN, DM, CAD, CHF, Dyslipidemia, ESRD Family History: None Social History: Non Smoker, No Alcohol, No Drug Use, Single Surgical History: other (placement of access line in the left upper arm.) Psychiatricy History: None Medication: Reviewed Family Medical History - Family Member Mother History Unknown: Yes Ethnicity: Living Status: Unknown Hx Family Cancer: No Hx Family Coronary Artery Disease: No Hx Family Congestive Heart Failure: No Hx Family Hypertension: No Hx Family Stroke: No Hx Family Diabetes: No Hx Family Seizures: No Hx Family Dementia: No Hx Family AIDS: No Hx Family HIV: No Hx Family COPD: No Hx Family Hepatitis: No Hx Family Psychiatric Problems: No Hx Family Tuberculosis: No ED Physical Exam - Physical Examination General/Constitutional: Awake, Well-developed, well-nourished, Alert, No distress, GCS 15, Non-toxic appearing, Ambulatory Other Gen/Cons comments:: appear to be pale Head: Atraumatic Eyes: Lids, conjuctiva normal, PERRL, EOMI Skin: Nl inspection, No rash, No skin lesions, No ecchymosis, Well hydrated, No lymphadenopathy ENMT: External ears, nose nl, Nasal exam nl, Lips, teeth, gums nl Neck: Nontender, Full ROM w/o pain, No JVD, No nuchal rigidity, No bruit, No mass, No stridor Respiratory: Nl effort/Exclusion, Clear to Auscultation, No Wheeze/Rhonchi/Rales Cardio Vascular: RRR, No murmur, gallop, rubs, NL S1 S2 GI: No tenderness/rebounding/guarding, No organomegaly, No hernia, Normal BS's, Nondistended, No mass/bruits, No McBurney tenderness : No CVA tenderness Extremities: No tenderness or effusion, Full ROM, normal strength in all extremities, No edema, Normal digits & nails Neuro/Psych: Alert/oriented, DTR's symmetric, Normal sensory exam, Normal motor strength, Judgement/insight normal, Mood normal, Normal gait, No focal deficits Misc: Normal back, No paraspinal tenderness ED Labs/Radiology/EKG Results - Lab Results Results: Abnormal Lab Results 08/07/18 08/07/18 08/07/18 02:30 02:30 02:30 WBC 10.1 RBC 3.29 L Hgb 9.8 L Hct 29.3 L MCV 89.3 MCH 29.7 MCHC Differential 33.3 RDW 14.2 Plt Count 274 MPV 9.1 Neutrophils % 74.3 Lymphocytes % 16.2 L Monocytes % 7.8 Eosinophils % 0.7 Basophils % 1.0 PT 12.4 H INR 1.20 PTT (Actin FS) 29.3 Sodium 139 Potassium 4.2 Chloride 91 L Carbon Dioxide 31.8 H Anion Gap 20.4 H BUN 33 H Creatinine 4.8 H* Est GFR ( Amer) 15.6 Est GFR (Non-Af Amer) 12.9 BUN/Creatinine Ratio 6.9 Glucose 368 H Calcium 9.0 Total Bilirubin 1.1 H AST 73 H ALT 63 H Alkaline Phosphatase 24 L B-Natriuretic Peptide Total Protein 7.4 Albumin 4.0 L Globulin 3.4 Albumin/Globulin Ratio 1.2 08/07/18 02:30 WBC RBC Hgb Hct MCV MCH MCHC Differential RDW Plt Count MPV Neutrophils % Lymphocytes % Monocytes % Eosinophils % Basophils % PT INR PTT (Actin FS) Sodium Potassium Chloride Carbon Dioxide Anion Gap BUN Creatinine Est GFR ( Amer) Est GFR (Non-Af Amer) BUN/Creatinine Ratio Glucose Calcium Total Bilirubin AST ALT Alkaline Phosphatase B-Natriuretic Peptide 3200.0 H Total Protein Albumin Globulin Albumin/Globulin Ratio - Radiology Results Results: chest x-ray = chf - EKG Interpretations EKG Time:: 02:21 Rate & Rhythm: rate =71, sinus [place]: left axis Intervals: left bundle branch block ED Assessment - Assessment General Assessment: unstable angina chf ED Septic Shock - . Is Septic Shock (SBP<90, OR Lactate>4 mmol\L) present?: No - <6hrs of presentation: Vital Signs: Vital Signs - 8 hr 08/07/18 02:05 Temp 96.0 F HR 66 RR 20 BP 155/78 O2 Sat % 90 ED Reassessment (Disposition) - Reassessment Reassessment Condition:: Improved - Diagnosis Diagnosis:: unstable angina chf esrd hypertension diabetes mellitus hyperlipidemia hypothyroidism elevated troponin - Aftercare/Follow up Instructions Notes:: dr Ramirez will care for this patient starting at [address] kirby stated he knows the and will take care of the dialysis. dr. kirby stated that he will be here in 30 minutes. - Patient Disposition Discharge/Transfer:: Acute Care w/in this hosp Admitted to:: Telemetry Admitting Medical Physician:: Khris Dave Condition at Disposition:: Improved
[2018-08-07 02:40] LABS: % EOSINOPHILS 0.7 % (0.0-5.0); % MONOCYTES 7.8 % (2.0-10.0); % NEUTROPHILS 74.3 % (40.0-80.0); BASOPHILE ABSOLUTE 0.1 Th/cumm (0-0.2); EOSINOPHILE ABSOLUTE 0.1 Th/cmm (0.1-0.4); HEMATOCRIT 29.3 % (41.0-60); HEMOGLOBIN 9.8 gm/dL (12-16); LYMPHOCYTE ABSOLUTE 1.6 Th/cmm (1.5-3.0); MEAN CELL VOLUME 89.3 fl (80-99); MEAN CORPUSCULAR HEMOGLOBIN 29.7 pg (27.0-31.0); MEAN CORPUSCULAR HGB CONC 33.3 pg (28.0-36.0); MEAN PLATELET VOLUME 9.1 fl; MONOCYTE ABSOLUTE 0.8 Th/cmm (0.3-1.0); NEUTROPHILE ABSOLUTE 7.5 Th/cmm (1.8-8.0); PLATELET COUNT 274 Th/cmm (150-400); RED BLOOD COUNT 3.29 Mil/cmm (3.80-5.80); WHITE BLOOD COUNT 10.1 Th/cmm (4.8-10.8)
[2018-08-07 02:46] LABS: INR 1.2 (0.5-1.4); PROTHROMBIN TIME (TEST) 12.4 SECONDS (9.5-11.5)
[2018-08-07 02:51] LABS: ALB/GLOB RATIO 1.2 (1.0-1.8); ANION GAP 20.4 (7.0-16.0); BILIRUBIN,TOTAL 1.1 mg/dL (0.3-1.0); CARBON DIOXIDE 31.8 mEq/L (21.0-31.0); GFR AFRICAN-AMERICAN 15.6 ml/min (>90); GFR NON AFRICAN-AMERICAN 12.9 ml/min; POTASSIUM SERUM 4.2 mEq/L (3.5-5.1); TOTAL PROTEIN,SERUM 7.4 gm/dL (6.0-8.3)
[2018-08-07 03:14] LABS: CREATININE - SERUM 4.8 mg/dL (0.7-1.3)
[2018-08-07] MEDS ORDERED: INSULIN HUMAN REGULAR 100 UNITS/ML UNIT SUBQ ONE (03:35)
[2018-08-07] MEDS ORDERED: INSULIN HUMAN REGULAR 100 UNITS/ML UNIT ONE (03:49)
[2018-08-07] MEDS ORDERED: Albuterol/Ipratropium Neb 3 ML AERS HHN PRN (06:40)
[2018-08-07] MEDS ORDERED: INSULIN ASPART SLIDING SCALE 100 UNITS/ML UNIT SUBQ SCH (07:30)
[2018-08-07] MEDS ORDERED: BENZOCAINE 20% TP ONE (08:23)
--- NOTE | 2018-08-07 09:22 | Diagnostic Imaging Report ---
Portable chest x-ray HISTORY: Pain The heart is enlarged. There are bilateral pulmonary infiltrates. Changes may be associated with edema and congestive heart failure. Pneumonia cannot be excluded. Clinical correlation is needed. IMPRESSION: 1. Cardiomegaly 2. Bilateral pulmonary infiltrates. Changes may be related to edema and congestive heart failure. Pneumonia cannot be excluded. Clinical correlation is needed.
[2018-08-07] MEDS ORDERED: Acetaminophen 500 MG TAB PO PRN (11:17)
[2018-08-07] MEDS: INSULIN ASPART SLIDING SCALE 100 UNITS/ML UNIT SUBQ SCH ×3 (11:30→20:48)
--- NOTE | 2018-08-07 13:45 | Consultation ---
DATE OF CONSULTATION: 08/07/2018 ATTENDING PHYSICIAN: Dr. Alli Jay. REASON FOR CONSULTATION: End-stage renal disease. HISTORY OF PRESENT ILLNESS: The patient is a 67-year-old male with history of diabetes, hypertension, end-stage renal disease, on hemodialysis. He came into the Emergency Room complaining of shortness of breath, chest pain. He is evaluated and found to have pulmonary edema, so he is admitted and I am called in consultation. PAST MEDICAL HISTORY: Significant for diabetes, hypertension, coronary artery disease, congestive heart failure, hyperlipidemia, and end-stage renal disease. FAMILY HISTORY: Noncontributory. SOCIAL HISTORY: The patient does not drink, smoke or use any drugs. ALLERGIES: No known drug allergies. MEDICATIONS: See medication reconciliation form. REVIEW OF SYSTEMS: As in history of present illness, all other systems reviewed and found to be negative. PHYSICAL EXAMINATION: VITAL SIGNS: His blood pressure is 155/78, temperature 96.0, pulse 66, respirations 20. HEENT: Normocephalic, atraumatic. Pupils equal, round, reacting to light and accommodation. Extraocular movements intact. CARDIOVASCULAR: S1, S2 heard, regular rate and rhythm. LUNGS: Clear to auscultation bilaterally. ABDOMEN: Soft. No hepatosplenomegaly. EXTREMITIES: There is no cyanosis, clubbing or edema. NEUROLOGIC: Cranial nerves 2-12 are intact. There is no focal deficit. LABORATORY DATA: WBC 10.1, hemoglobin 9.8, hematocrit 29.3, platelet count 274,000. PT is 12.4 seconds, INR 1.20. Sodium 139, potassium 4.2, chloride 91, bicarbonate 31, BUN 33, creatinine 4.8, glucose 368, calcium 9.0, bilirubin 1.1, AST 73, ALT 63, alkaline phosphatase 24. B-type natriuretic peptide 3200, total protein 7.4, albumin 4.0, globulin 3.4. ASSESSMENT AND PLAN: 1. Pulmonary edema, fluid overload. We will dialyze the patient emergently and then bring him back to his usual Wednesday, , Saturdays. 2. End-stage renal disease, on hemodialysis Wednesday, and Wednesday. 3. Diabetes mellitus, controlled with sliding scale insulin. 4. Coronary artery disease and congestive heart failure, stable at this time. Rule out myocardial infarction with serial troponins. Thank you very much for the privilege of consulting on your patient, Dr. Smith. JOB# [id number]
[2018-08-07] MEDS ORDERED: FERRIC CITRATE PO SCH (14:00)
[2018-08-07] MEDS ORDERED: Non-Formulary Item 1 EA (Clonidine Hcl [Clonidine Hcl] 0.2 MG) PO SCH (14:00)
--- NOTE | 2018-08-07 18:39 | History & Physical ---
ADMIT DATE: 08/07/2018 REASON FOR ADMISSION: Congestive heart failure with acute respiratory failure in this patient with end-stage renal disease on hemodialysis, anemia of chronic disease, hypertension with chest pain and elevated troponin level. HISTORY OF PRESENT ILLNESS: A 67-year-old gentleman who had a dialysis per Dr. Pollard on 08/06/2018 but presented to the Emergency Room with severe shortness of breath and complaining of generalized chest pain. The patient just finished hemodialysis now and a 4-liter of fluid came out and the patient started feeling better at the present time and denies any headache or vision problem or swallowing problem. Positive for cough, dry. No sputum, no fever, no chills. The patient denies any chest pain, palpitation, passing out. Complaining of nausea, but no vomiting, no abdominal pain, no diarrhea, no melena, no bright red blood per rectum. No UTI symptomatology. No leg swelling, joint swelling or rashes. No new numbness, weakness at present time. PAST MEDICAL HISTORY: As mentioned above significant for hypertension, diabetes mellitus, coronary artery disease, congestive heart failure, end-stage renal disease on hemodialysis via left arm AV fistula, dyslipidemia. FAMILY HISTORY: None. SOCIAL HISTORY: No smoking, no alcohol, no substance abuse. The patient lives by himself. PAST SURGICAL HISTORY: Significant for left upper arm AV fistula placement. PSYCHIATRIC HISTORY: None. MEDICATIONS: At home includes Norvasc 5 mg once a day, Ecotrin 81 mg once a day, Lipitor 10 mg at bedtime, clonidine 0.2 mg t.i.d., vitamin D 50,000 unit once a week and ferric citrate 1 tablet 3 times a day, labetalol 200 mg once a day. PHYSICAL EXAMINATION: VITAL SIGNS: Height 1.7 meter, weight 81.6 kg, BMI 28.2, temperature 97.2, pulse 70 and regular, respiratory rate is 22, blood pressure 165/75, oxygen saturation 99% on 100% rebreather mask. HEENT: No icterus. No pallor. Mucosa is moist. Skin turgor is normal. NECK: Supple. No JVD, bruit, or lymphadenopathy. LUNGS: Clear. CARDIOVASCULAR: S1, S2 normal limits. ABDOMEN: Obese, otherwise benign. EXTREMITIES: Trace edema noted on the right leg. Dorsalis pedis palpable. SKIN: Dry on the lower extremities. AV fistula left arm, functioning, fine. The patient just finished hemodialysis and has dressing over AV fistula. CENTRAL NERVOUS SYSTEM: Nonfocal. MUSCULOSKELETAL: No clubbing, cyanosis, or synovitis. LABORATORY TESTS: WBC 10,000, hemoglobin 9.8, MCV 89, platelet count of 274,000, neutrophils 74%. Protime 12, PTT 29. Sodium 139, potassium 4.2, chloride 91, bicarbonate 32, BUN 33, creatinine 4.8, glucose 368, and calcium 9.0. AST 73, ALT 63, alkaline phosphatase 24, bilirubin 1.1, and albumin of 4.0. BNP 3200. Troponin 0.84. TSH 5.43. Chest x-rays revealed mild cardiomegaly, bilateral pulmonary infiltrates consistent with pulmonary edema and congestive heart failure, pneumonia cannot be excluded. ASSESSMENT AND PLAN: 1. Acute respiratory failure secondary to decompensated congestive heart failure. 2. Decompensated congestive heart failure. 3. End-stage renal disease on hemodialysis via left arm AV fistula. 4. Hypertension. 5. Insulin-dependent diabetes mellitus. 6. Anemia of chronic disease plus iron deficiency anemia. 7. Dyslipidemia, currently on Lipitor 10 mg p.o. at bedtime. 8. Vitamin D deficiency. Continue on vitamin D 50,000 unit once a week[address] Dr. Smith will follow the patient from 08/08/2018. JOB# [id number]
[2018-08-07] MEDS: Atorvastatin Calcium 10 MG TAB PO SCH (20:47)
--- NOTE | 2018-08-08 03:44 | Consultation ---
DATE OF CONSULTATION: 08/08/2018 HISTORY OF PRESENT ILLNESS: This 68-year-old male was seen and examined. Time is about 2:30 a.m. This patient was admitted here through Emergency Room with history of shortness of breath and some chest pains. He was evaluated in the Emergency Room, was found to have slightly elevated troponin level. He also found to be in congestive heart failure. The patient does have a history of an end-stage renal disease on hemodialysis, also history of hypertension, diabetes mellitus, anemia, diabetic peripheral vascular disease, and hyperlipidemia. The patient also had diabetic retinopathy. PAST MEDICAL HISTORY: As mentioned above. FAMILY HISTORY: disease. SOCIAL HISTORY: Denies smoking or drinking. REVIEW OF SYSTEMS: History of chest pain, history of shortness of breath, no history of dizziness. No history of syncope, no history of seizures, no history of abdominal pain. No history of nausea or vomiting. No history of hematemesis. No history of melena, no history of bleeding per rectum. PHYSICAL EXAMINATION: VITAL SIGNS: Heart rate was 58, blood pressure 116/46, respirations 18, temperature 97.6. SKIN: Normal. HEAD: Normocephalic. EYES: Conjunctivae were pink. There is no icterus in the eyes. Pupils reactive to light. NECK: There was no increased jugular venous distention, no thyromegaly, no lymphadenopathy. Carotids equal on both sides. CHEST: Bilaterally symmetrical. Moves well with respiration. Respiratory movements equal on both sides. Trachea is central. There is note to percussion. Breath sound, few basilar rales. CARDIOVASCULAR SYSTEM: PMI not well localized and no positional thrill. No parasternal heave. S1 normal, S2 physiologic. There were no S3, no rub. ABDOMEN: Soft, no tenderness, no rigidity, no guarding, and no organomegaly. Bowel sounds normal. EXTREMITIES: No edema, no calf tenderness. Peripheral pulses diminished. LABORATORY DATA: On looking at the lab the troponin was slightly elevated to 0.84. INR was 1.20. WBC 10.1, hemoglobin 9.8, hematocrit 29.3, platelet count 274. BNP was markedly elevated at 3200, TSH 5.43. Sodium 139, potassium 4.2, chloride 91, CO2 of 31.8, glucose 368, BUN 33, creatinine 4.8, total protein 7.4, albumin 4, globulin 3.4, bilirubin total 1.1. SGOT 73, SGPT 63, alkaline phosphatase 24. Chest x-ray shows cardiomegaly, bilateral pulmonary infiltrates changes may be related to edema or congestive heart failure, pneumonia cannot be excluded. EKG shows sinus rhythm, left bundle branch block, possible left atrial enlargement. IMPRESSION: Shortness of breath, chest pains, slightly elevated troponin level that could be due to renal failure; however, we have to rule out any possibility of myocardial wall injury, congestive heart failure, end-stage renal disease on hemodialysis, hypertension, diabetes mellitus, hyperlipidemia, anemia, diabetic peripheral vascular disease, diabetic retinopathy, history of cellulitis. DISCUSSION: At present, the patient seems to be stable. Vital signs hemodynamically stable. No arrhythmia noted. We will repeat troponin q. 8 x 2 more times. We will also get EKG in a.m. We will get echocardiogram in a.m. to evaluate left ventricular function and valvular structure. We will also check lipid profile and TSH. The patient to continue aspirin and statins. Beta melo probably we should hold due to the bradycardia. Thank you Dr. Jayne Greene. We will be following him from the morning. JOB# [id number]
[2018-08-08 04:49] LABS: % MONOCYTES 7.9 % (2.0-10.0); BASOPHILE ABSOLUTE 0.1 Th/cumm (0-0.2); EOSINOPHILE ABSOLUTE 0.3 Th/cmm (0.1-0.4); LYMPHOCYTE ABSOLUTE 1.9 Th/cmm (1.5-3.0); MONOCYTE ABSOLUTE 0.8 Th/cmm (0.3-1.0)
[2018-08-08 05:00] LABS: % BASOPHILS 1.2 % (0.0-2.0); % EOSINOPHILS 2.7 % (0.0-5.0); % LYMPHOCYTES 19.2 % (20.0-50.0); HEMATOCRIT 28.2 % (41.0-60); HEMOGLOBIN 9.4 gm/dL (12-16); MEAN CELL VOLUME 88.4 fl (80-99); MEAN CORPUSCULAR HEMOGLOBIN 29.6 pg (27.0-31.0); MEAN CORPUSCULAR HGB CONC 33.5 pg (28.0-36.0); MEAN PLATELET VOLUME 9.5 fl; NEUTROPHILE ABSOLUTE 6.7 Th/cmm (1.8-8.0); PLATELET COUNT 258 Th/cmm (150-400); RED BLOOD COUNT 3.19 Mil/cmm (3.80-5.80); RED CELL DISTRIBUTION WIDTH 14.5 % (11.5-20.0); WHITE BLOOD COUNT 9.8 Th/cmm (4.8-10.8)
[2018-08-08 05:27] LABS: ALB/GLOB RATIO 1.1 (1.0-1.8); ALBUMIN 3.4 gm/dL (4.2-5.5); ANION GAP 17.5 (7.0-16.0); BILIRUBIN,TOTAL 0.6 mg/dL (0.3-1.0); CALCIUM SERUM 8.5 mg/dL (8.6-10.3); CARBON DIOXIDE 32.3 mEq/L (21.0-31.0); GFR AFRICAN-AMERICAN 14.5 ml/min (>90); POTASSIUM SERUM 3.8 mEq/L (3.5-5.1); TOTAL PROTEIN,SERUM 6.4 gm/dL (6.0-8.3); URIC ACID 4.9 mg/dL (4.4-7.6)
[2018-08-08 05:31] LABS: CREATININE - SERUM 5.1 mg/dL (0.7-1.3)
[2018-08-08] MEDS: INSULIN ASPART SLIDING SCALE 100 UNITS/ML UNIT SUBQ SCH ×4 (06:45→21:41)
--- NOTE | 2018-08-08 07:42 | Diagnostic Imaging Report ---
Portable chest x-ray Time: 0 712 Compared to prior exam: 08/07/2018 History: Congestive heart failure There is evidence for decrease congestion compared to prior examination of 08/07/2018. The heart is enlarged. There is evidence of left lower lobe infiltrate and superimposed effusion. Follow-up examination recommended. Bony thorax is intact. IMPRESSION: Cardiomegaly left lower lobe infiltrate and effusion. Mild decrease in congestion compared to prior study 08/07/2018
[2018-08-08 08:13] LABS: IRON LC 63 ug/dL (38-169); TIBC (LC) 275 ug/dL (250-450); UIBC 212 ug/dL (111-343)
[2018-08-08] MEDS: Aspirin 81mg Chewable Tab PO SCH (09:25)
--- NOTE | 2018-08-08 14:57 | Diagnostic Imaging Report ---
Ultrasound abdomen HISTORY: Elevated liver function tests COMPARISON: Ultrasound abdomen on 01/23/[address] abdomen and pelvis on 01/23/2015 study was also compared renal ultrasound 06/10/2017 Technique: Sonography of the abdomen was performed in multiple planes. FINDINGS: The liver demonstrates normal echogenicity and measures 13.3 cm. No evidence of focal lesions. Multiple gallstones are noted. The gallbladder wall measures 4 mm. No pericholecystic fluid. The common bile duct measures 4.4 mm. Evaluation of the pancreas is limited limited due to bowel gas. The right kidney measures 11.1 cm demonstrating simple appearing cyst measuring 2.4 x 2.4 cm. No hydronephrosis. The left kidney measures 10.6 x 6.6 cm. No evidence of focal lesions or hydronephrosis. The spleen measures 9.4 cm. Elevated postvoid bladder volume of 226 mL is noted. Mild urinary bladder wall thickening is noted. The prostate gland is mildly prominent with mild mass effect upon the base of the urinary bladder. IMPRESSION: No focal hepatic abnormalities identified. No evidence of hepatomegaly. Multiple gallstones. Slight prominence of the gallbladder wall is noted. Please correlate clinically. If indicated nuclear medicine HIDA scan may be obtained for further assessment. Markedly Elevated post void residual bladder volume of 226 mL's. Please correlate clinically. Mild urinary bladder wall thickening is also noted which may be due to underlying inflammatory process. Mildly prominent prostate gland. 2.4 x 2.4 cm right renal cyst.
--- NOTE | 2018-08-08 15:53 | Progress Notes ---
DATE: IDENTIFICATION: A 68-year-old male. SUBJECTIVE: The patient was seen and examined. The patient was admitted to ICU on 08/07/2018 for respiratory distress and noted to have pulmonary edema requiring emergency dialysis. According to RN, the patient had a 4 liter fluid was removed after emergency dialysis. The patient's breathing is better, though the patient still has shortness of breath with minimal exertion. The patient is noted to have elevated troponin. The patient did not have any chest pain. The patient is diabetic and hypertensive and the patient has a history of congestive heart failure secondary to diastolic dysfunction. PHYSICAL EXAMINATION: Today's exam; VITAL SIGNS: Temperature 97.6, pulse 57, respiratory rate 18, and blood pressure 130/50. HEENT: No facial asymmetry. NECK: Supple, no JVD. HEART: Regular. Positive for S4. CHEST AND LUNGS: Equal in expansion with no expiratory wheezing. ABDOMEN: Soft. No guarding, no rigidity. Liver, spleen palpable. No palpable mass. EXTREMITIES: No edema. AVAILABLE LABORATORY DATA AND DIAGNOSTIC DATA: Troponin of 1.04. Potassium of 3.8, BUN and creatinine is 42/5.1. Hemoglobin 9.4, white count 9.8, and platelet count of 258. Glucoscan is reviewed. CLINICAL IMPRESSION: 1. Acute respiratory distress secondary to pulmonary edema, status post emergency hemodialysis, respiratory failure is improving. 2. Elevated troponin of 1.04, has increased from 0.84. The patient is diabetic, hypertensive, along with congestive heart failure and currently on dialysis, elevated troponin, probably secondary to cardiac event and secondary to congestive heart failure. Possibilities of elevated troponin from dialysis is always there. Cardiology consultation has been requested. 3. Diabetes. 4. Hypertension. 5. Anemia of chronic kidney disease. 6. Gout. 7. Hyperlipidemia. 8. Degenerative joint disease. 9. End-stage renal disease, on hemodialysis. 10. Pulmonary edema, most likely secondary to diastolic heart failure. PLAN: In the view of the patient's respiratory failure and emergency dialysis has improved significantly the patient's symptoms. I will repeat chest x-ray and BNP and will pursue for another dialysis to be given today. Based on his cardiac history, the patient definitely needs cardiac workup, which will be deferred to resistor coater. The patient may need coronary angiogram, which can be provided at another hospital since cardiac catheterization service is not available. Continue to monitor blood sugar along with nutritional support, oxygen along with a nebulizer treatment as well. The patient's care plan has been reviewed and discussed with RN as well. JOB# [id number]
[2018-08-08] MEDS: Atorvastatin Calcium 10 MG TAB PO SCH (20:52)
--- NOTE | 2018-08-08 22:04 | Progress Notes ---
DATE: 08/08/2018 LOCATION: [facility] ICU bed #5. SUBJECTIVE: The patient is conscious, alert. The patient had dialysis yesterday, tolerated it well. The patient's chest pain has improved. No complaint of shortness of breath, fever or cough. No cramps. The patient is undergoing echocardiogram testing. OBJECTIVE: VITAL SIGNS: Temperature 98.2, pulse 55, blood pressure 155/44. Yesterday's intake 500, ultrafiltration output 4000 mL. HEART: Regular. LUNGS: Good air entry. ABDOMEN: Soft. EXTREMITIES: No edema. LABORATORY DATA: Hemoglobin 9.4, WBC 9.8, platelet 258,000. Sodium 140, potassium 3.8, BUN 42, creatinine 5.1. LFTs elevated. Calcium 8.5. ASSESSMENT: 1. Chronic kidney disease 5, on chronic hemodialysis Wednesday, and Wednesday. 2. Hypertension. 3. Anemia. 4. Elevated LFT. 5. Fluid overload. 6. Hyperlipidemia. 7. Insulin-dependent diabetes mellitus. 8. Vitamin D2 deficiency. 9. Congestive heart failure. PLAN: Hemodialysis will be done tomorrow. Check CMP, phosphorus, magnesium in the morning. Echocardiogram will be done today and upon review of that, we will decide about the further management. Continue the patient on a renal diet and fluid restriction. Start the patient on phosphate binder. Also obtain abdominal ultrasound. JOB# [id number]
[2018-08-09 04:46] LABS: % BASOPHILS 1.3 % (0.0-2.0); % LYMPHOCYTES 22.7 % (20.0-50.0); % MONOCYTES 9.4 % (2.0-10.0); % NEUTROPHILS 62.6 % (40.0-80.0); BASOPHILE ABSOLUTE 0.1 Th/cumm (0-0.2); EOSINOPHILE ABSOLUTE 0.3 Th/cmm (0.1-0.4); HEMATOCRIT 28.4 % (41.0-60); HEMOGLOBIN 9.4 gm/dL (12-16); LYMPHOCYTE ABSOLUTE 1.9 Th/cmm (1.5-3.0); MEAN CELL VOLUME 89.6 fl (80-99); MEAN CORPUSCULAR HEMOGLOBIN 29.6 pg (27.0-31.0); MEAN CORPUSCULAR HGB CONC 33.1 pg (28.0-36.0); MEAN PLATELET VOLUME 9.2 fl; MONOCYTE ABSOLUTE 0.8 Th/cmm (0.3-1.0); NEUTROPHILE ABSOLUTE 5.2 Th/cmm (1.8-8.0); PLATELET COUNT 257 Th/cmm (150-400); RED BLOOD COUNT 3.17 Mil/cmm (3.80-5.80); WHITE BLOOD COUNT 8.3 Th/cmm (4.8-10.8)
[2018-08-09 05:14] LABS: ALB/GLOB RATIO 1.1 (1.0-1.8); ALBUMIN 3.3 gm/dL (4.2-5.5); ANION GAP 16.9 (7.0-16.0); BILIRUBIN,TOTAL 0.5 mg/dL (0.3-1.0); CALCIUM SERUM 8.4 mg/dL (8.6-10.3); CARBON DIOXIDE 33.9 mEq/L (21.0-31.0); GFR AFRICAN-AMERICAN 11.8 ml/min (>90); GFR NON AFRICAN-AMERICAN 9.7 ml/min; MAGNESIUM 2.2 mg/dL (1.9-2.7); PHOSPHOROUS 6.2 mg/dL (2.5-5.0); POTASSIUM SERUM 3.8 mEq/L (3.5-5.1); TOTAL PROTEIN,SERUM 6.2 gm/dL (6.0-8.3)
[2018-08-09 05:24] LABS: CREATININE - SERUM 6.1 mg/dL (0.7-1.3)
[2018-08-09] MEDS: INSULIN ASPART SLIDING SCALE 100 UNITS/ML UNIT SUBQ SCH ×3 (07:03→18:06)
[2018-08-09] MEDS ORDERED: BENZOCAINE 20% TP PRN (08:18)
--- NOTE | 2018-08-09 08:48 | Diagnostic Imaging Report ---
Portable chest x-ray HISTORY: Shortness of breath Compared with prior exam of August 08, 2018, persistent density remains in the left lower hemithorax consistent with a pleural effusion. The heart remains enlarged. Haziness within the right perihilar region. A degree of congestive heart failure cannot be excluded. Underlying pneumonia cannot be ruled out. Clinical correlation is needed. IMPRESSION: 1. No change in the cardiopulmonary status since August 08, 2018 as noted above.
[2018-08-09] MEDS: Aspirin 81mg Chewable Tab PO SCH (10:29)
--- NOTE | 2018-08-09 21:20 | Discharge Summary ---
DATE OF DISCHARGE: 08/09/2018 DISPOSITION: Discharged to home. PRINCIPAL DIAGNOSES: 1. Acute respiratory failure, resolved. 2. Pulmonary edema, status post emergency hemodialysis. 3. Diastolic heart failure. 4. End-stage renal disease, on hemodialysis. 5. Diabetes mellitus. 6. Hypertension. 7. Hyperlipidemia. 8. Degenerative joint disease. 9. Anemia of chronic kidney disease. 10. Debility. 11. Gout. BRIEF STATEMENT FOR THE REASON FOR ADMISSION: A 68-year-old male presented to Emergency Room for acute respiratory distress. The patient was noted to have pulmonary edema. The patient was admitted to the hospital for further treatment. Please refer to Dr. Faisal Greene's H and P for further information. HOSPITAL COURSE: The patient was seen by hone operator as well as ultrasound supervisor, emergency dialysis was given. Cardiac enzymes were reported slightly elevated troponin. The patient did have echocardiogram, which did reveal diastolic heart dysfunction. The patient had a followup chest x-ray on 08/09/2018, which did reveal pulmonary edema. The patient had a chest x-ray was done on 08/09/2018 in the morning at 8:45 and got his dialysis. After the chest x-ray, the patient's shortness of breath completely resolved. I did examine the patient and his lungs were sounded clear with respiratory rate of only 16. Discussion with hone operator as well as ultrasound supervisor about the discharge planning and both consulted and agreed that the patient is stable to be discharged home. The patient is discharged home in stable condition with outpatient followup by extraction supervisor in 1 week. If recurrent symptoms, the patient advised to go to Emergency Room. Please note that the patient was noted to have accidentally found to have gallstones, which was asymptomatic and recommended that the patient should have workup done as outpatient. The patient has fully understood about this discharge instruction. At the time of discharge, all of his medications were reconciled. JOB# [id number]
--- NOTE | 2018-08-10 05:36 | Progress Notes ---
DATE: 08/09/2018 IDENTIFICATION: A 68-year-old male. SUBJECTIVE: The patient seen and examined. The patient had a dialysis. The patient currently denies any chest pain, shortness of breath, palpitation, dizziness, nausea, vomiting. PHYSICAL EXAMINATION: VITAL SIGNS: Temperature 98.6, pulse 76, respiratory rate is 18, and blood pressure 115/51. HEENT: No facial asymmetry. NECK: Supple, no JVD. HEART: Regular. CHEST AND LUNGS: Equal in expansion with no expiratory wheezing. ABDOMEN: Soft. No guarding, no rigidity. Bowel sounds present. No palpable mass. EXTREMITIES: No edema. CLINICAL IMPRESSION: 1. Pulmonary edema. 2. Diastolic heart failure. 3. Elevated troponin. 4. Diabetes. 5. Hypertension. 6. Anemia of chronic kidney disease. 7. Gout. 8. Hyperlipidemia. 9. Degenerative joint disease. 10. End-stage renal disease, on hemodialysis. PLAN: Discussed with upper cutter machine as well as program management intern about the discharge planning. According to cardiology's recommendations, the patient does not need any acute intervention for his cardiac status. The patient should see animation producer and have further workup to be done as an outpatient. The patient is stable to be discharged from cardiac standpoint as well as discussed with program management intern who is agree with discharging the patient to home with currently prescribed medication. The patient is discharged today in stable condition with outpatient followup by animation producer in 1-2 weeks. JOB# [id number]
--- NOTE | 2018-08-10 07:09 | Progress Notes ---
DATE: LOCATION: [facility] ICU bed 5. SUBJECTIVE: The patient had dialysis yesterday, tolerated it well. Conscious and alert, no complaint of shortness of breath, nausea, vomiting or diarrhea. Eating good. OBJECTIVE: VITAL SIGNS: Temperature 97.6, pulse 58, blood pressure 157/57, respiration 18. Yesterday's intake 500, ultrafiltration output 4000 mL. HEART: Regular. LUNGS: Clear. ABDOMEN: Benign. EXTREMITIES: No edema. LABORATORY DATA: Hemoglobin 9.4. WBC normal. Creatinine 6.1, calcium 8.4, phosphorus 6.2. ASSESSMENT: 1. Chronic kidney disease 5, on chronic hemodialysis. 2. Anemia. 3. Hypertension. 4. Congestive heart failure. 5. Fluid overload. 6. Insulin-dependent diabetes mellitus. 7. Congestive heart failure. 8. Vitamin D2 deficiency. PLAN: Hemodialysis tomorrow either as inpatient or outpatient. Discussed with Dr. Alli Smith. The patient can be discharged and can have dialysis in the dialysis center as per his schedule. If not, then we will do dialysis tomorrow here. JOB# [id number]
--- NOTE | 2018-08-10 16:54 | Cardiology ---
08/08/[address] Garrison Treviño. M-MODE ECHOCARDIOGRAM: Mitral valve, anterior leaflet of mitral valve shows normal excursion, EF velocity. Posterior leaflet of the mitral valve shows normal excursion. Left ventricular posterior wall shows increased thickness, normal excursion. Interventricular septum shows increased thickness, normal excursion, hypertrophy of the left ventricle, ejection fraction 50%. Left atrium enlarged 4.05 cm. Aortic root shows normal dimension, normal excursion of aortic leaflets. CONCLUSION: Hypertrophy of the left ventricle, minimal left atrial enlargement, ejection fraction 50%. 2D ECHO: Long axis view showed normal sized left ventricle with hypertrophy of the left ventricle, minimal left atrial enlargement, aortic root shows normal dimension, normal excursion of aortic leaflets. Short axis view of mitral valve normal. Short axis view of aortic valve normal. Apical four chamber view shows normal-sized left ventricle with hypertrophy of the left ventricle, left atrial enlargement, right ventricular cavity, right atrium normal, no pericardial effusion. CONCLUSION: Hypertrophy of the left ventricle, minimal left atrial enlargement, ejection fraction 50%. Doppler study shows moderate mitral regurgitation, moderate tricuspid regurgitation, right ventricular systolic pressure 55 mmHg with moderate pulmonary hypertension. JOB# [id number]
== END 2018-08-09 19:05 | disposition home or self-care (01) | DRG 194 ==
LOC: ER 02:03 → ICU 06:30
PROVIDERS: ADMIT Internal Medicine; ATTEND Internal Medicine
PROC: 5A1D70Z Performance of Urinary Filtration, Intermittent, Less than 6 Hours Per Day (ICD-10-PCS; principal; 2018-08-07)
PROC: 5A1D70Z Performance of Urinary Filtration, Intermittent, Less than 6 Hours Per Day (ICD-10-PCS; 2018-08-09)
DX: I13.2 Hypertensive heart and chronic kidney disease with heart failure and with stage 5 chronic kidney disease, or end stage renal disease (principal); J96.00 Acute respiratory failure, unspecified whether with hypoxia or hypercapnia; N18.6 End stage renal disease; E11.319 Type 2 diabetes mellitus with unspecified diabetic retinopathy without macular edema; E11.22 Type 2 diabetes mellitus with diabetic chronic kidney disease; I25.110 Atherosclerotic heart disease of native coronary artery with unstable angina pectoris; I50.33 Acute on chronic diastolic (congestive) heart failure; D63.1 Anemia in chronic kidney disease; E55.9 Vitamin D deficiency, unspecified; Z99.2 Dependence on renal dialysis; E78.5 Hyperlipidemia, unspecified; E03.9 Hypothyroidism, unspecified; D50.9 Iron deficiency anemia, unspecified; E11.51 Type 2 diabetes mellitus with diabetic peripheral angiopathy without gangrene; M10.9 Gout, unspecified; M19.90 Unspecified osteoarthritis, unspecified site; K80.80 Other cholelithiasis without obstruction
CPT/HCPCS: 36415-UA; 71045-TC; 76700-TC; 80053-TC; 80061-TC; 82948-90; 83036-90; 83540-90; 83550-90; 83735-TC; 83880-TC; 84100-TC; 84443-TC; 84484-TC; 84550-TC; 85025-TC; 85610-TC; 85730-TC; 90937; 93005; 94760; 96374; 96375; J1815; J1940; J2405; Q0162; Z7610

== ENCOUNTER 2018-08-15 05:52 | Inpatient (IN) | payer MEDICAID ==
--- NOTE | 2018-08-15 06:19 | ED Physician Chart ---
ED Chief Complaint/HPI - Patient Information Date Seen:: 08/15/18 Time Seen:: 06:14 Chief Complaint:: sob History of Present Illness:: 68 yr old male on dialysis with sob leg edema some cough no fever Allergies:: Allergies Allergy/AdvReac Type Severity Reaction Status Date / Time No Known Allergies Allergy Verified 08/07/18 02:18 ED Review of Systems - Review of Systems General/Constitutional: No fever Skin: No skin lesions Head: No headache Eyes: No loss of vision ENT: No earache Neck: No neck pain Cardio Vascular: No chest pain Pulmonary: SOB GI: Vomiting G/U: No dysuria Musculoskeletal: No bone or joint pain Endocrine: No polyuria Psychiatric: No prior psych history ED Past Medical History - Past Medical History Past Medical History: HTN, DM, CAD, Dyslipidemia, ESRD Family Medical History - Family Member Mother History Unknown: Yes Ethnicity: Living Status: Unknown Hx Family Cancer: No Hx Family Coronary Artery Disease: No Hx Family Congestive Heart Failure: No Hx Family Hypertension: No Hx Family Stroke: No Hx Family Diabetes: No Hx Family Seizures: No Hx Family Dementia: No Hx Family AIDS: No Hx Family HIV: No Hx Family COPD: No Hx Family Hepatitis: No Hx Family Psychiatric Problems: No Hx Family Tuberculosis: No ED Physical Exam - Physical Examination General/Constitutional: Awake, Well-developed, well-nourished, Alert, No distress, GCS 15, Non-toxic appearing, Ambulatory Head: Atraumatic Eyes: Lids, conjuctiva normal, PERRL, EOMI Skin: Nl inspection, No rash, No skin lesions, No ecchymosis, Well hydrated, No lymphadenopathy ENMT: External ears, nose nl, Nasal exam nl, Lips, teeth, gums nl Neck: Nontender, Full ROM w/o pain, No JVD, No nuchal rigidity, No bruit, No mass, No stridor Respiratory: Nl effort/Exclusion, Clear to Auscultation, No Wheeze/Rhonchi/Rales Cardio Vascular: RRR, No murmur, gallop, rubs, NL S1 S2 GI: No tenderness/rebounding/guarding, No organomegaly, No hernia, Normal BS's, Nondistended, No mass/bruits, No McBurney tenderness : No CVA tenderness Extremities: No tenderness or effusion, Full ROM, normal strength in all extremities, No edema, Normal digits & nails Neuro/Psych: Alert/oriented, DTR's symmetric, Normal sensory exam, Normal motor strength, Judgement/insight normal, Mood normal, Normal gait, No focal deficits Misc: Normal back, No paraspinal tenderness ED Assessment - Assessment General Assessment: sob esrd leg edema ED Septic Shock - . Is Septic Shock (SBP<90, OR Lactate>4 mmol\L) present?: No ED Reassessment (Disposition) - Reassessment Reassessment:: sob - Diagnosis Diagnosis:: SOB - Patient Disposition Admitted to:: Med/Surg Condition at Disposition:: Stable
[2018-08-15 06:33] LABS: % BASOPHILS 0.7 % (0.0-2.0); % LYMPHOCYTES 21.4 % (20.0-50.0); % MONOCYTES 6.4 % (2.0-10.0); % NEUTROPHILS 69.5 % (40.0-80.0); BASOPHILE ABSOLUTE 0.1 Th/cumm (0-0.2); EOSINOPHILE ABSOLUTE 0.2 Th/cmm (0.1-0.4); HEMATOCRIT 30.9 % (41.0-60); HEMOGLOBIN 10.4 gm/dL (12-16); LYMPHOCYTE ABSOLUTE 2.4 Th/cmm (1.5-3.0); MEAN CELL VOLUME 90.9 fl (80-99); MEAN CORPUSCULAR HEMOGLOBIN 30.7 pg (27.0-31.0); MEAN CORPUSCULAR HGB CONC 33.8 pg (28.0-36.0); MEAN PLATELET VOLUME 8.9 fl; MONOCYTE ABSOLUTE 0.7 Th/cmm (0.3-1.0); NEUTROPHILE ABSOLUTE 7.8 Th/cmm (1.8-8.0); PLATELET COUNT 320 Th/cmm (150-400); RED CELL DISTRIBUTION WIDTH 14.8 % (11.5-20.0); WHITE BLOOD COUNT 11.2 Th/cmm (4.8-10.8)
[2018-08-15 06:55] LABS: TROP I 1.62 ng/mL (0.01-0.05)
[2018-08-15 06:57] LABS: ALB/GLOB RATIO 1.3 (1.0-1.8); ALBUMIN 4.3 gm/dL (4.2-5.5); ANION GAP 22.7 (7.0-16.0); BILIRUBIN,TOTAL 0.6 mg/dL (0.3-1.0); CALCIUM SERUM 8.8 mg/dL (8.6-10.3); CARBON DIOXIDE 27.2 mEq/L (21.0-31.0); GFR AFRICAN-AMERICAN 12.3 ml/min (>90); GFR NON AFRICAN-AMERICAN 10.1 ml/min; MAGNESIUM 2.3 mg/dL (1.9-2.7); POTASSIUM SERUM 3.9 mEq/L (3.5-5.1); TOTAL PROTEIN,SERUM 7.7 gm/dL (6.0-8.3)
[2018-08-15 07:01] LABS: CREATININE - SERUM 5.9 mg/dL (0.7-1.3)
--- NOTE | 2018-08-15 08:32 | Diagnostic Imaging Report ---
Portable chest x-ray HISTORY: Shortness of breath Compared to prior exam of August 09, 2018, the heart remains enlarged. Pleural reaction noted about the left costophrenic angle. Evidence for small right pleural effusion. IMPRESSION: 1. Persistent cardiomegaly 2. Evidence of a small right pleural effusion along with pleural reaction about the left costophrenic angle.
--- NOTE | 2018-08-15 09:01 | History and Physical ---
History of Present Illness - HPI Chief Complaint: SOB HPI: Patient refer that he just was DC from hospital but he started to have SOB and edema of lower extremities. During ER evaluation was found increased troponins , CPK, Creatinine, BNP, D-dimers, and Lactic acidosis. Vital Signs: Last Vital Signs Temp 97.8 F 08/15/18 07:51 Pulse 69 08/15/18 07:51 Resp 18 08/15/18 07:51 BP 144/69 08/15/18 07:51 Pulse Ox 98 08/15/18 07:51 Past Medical History Cardiovascular: Report: CAD, CHF, HTN Pulmonary: Report: No Pertinent Hx GI: Report: No Pertinent Hx Psych: Report: No Pertinent Hx Musculoskeletal: Report: Weakness Rheumatologic: Report: No pertinent Hx Infectious Disease: Report: No Pertinent Hx Renal/: Report: Other (ESRD) Endocrine: Report: Diabetes Dermatology: Report: No Pertinent Hx - Past Surgical History Past Surgical History: No pertinent Hx Family Medical History - Family Member Mother History Unknown: Yes Ethnicity: Living Status: Unknown Hx Family Cancer: No Hx Family Coronary Artery Disease: No Hx Family Congestive Heart Failure: No Hx Family Hypertension: No Hx Family Stroke: No Hx Family Diabetes: No Hx Family Seizures: No Hx Family Dementia: No Hx Family AIDS: No Hx Family HIV: No Hx Family COPD: No Hx Family Hepatitis: No Hx Family Psychiatric Problems: No Hx Family Tuberculosis: No Social History Smoke: No Alcohol: None Drugs: None Lives: With Family Domestic Violence: Negative - Medications Home Medications: Home Medication Medication Instructions Recorded Type Aspirin [Aspirin Chewable] 81 mg PO DAILY 08/15/18 History Labetalol [Trandate] 200 mg PO DAILY 08/15/18 History Minoxidil 5 mg PO BID 08/15/18 History - Allergies Allergies/Adverse Reactions: Allergies Allergy/AdvReac Type Severity Reaction Status Date / Time No Known Allergies Allergy Verified 08/07/18 02:18 Review of Systems - Review of Systems Constitutional: Report: Weakness Eyes: Report: No Significant ENT: Report: No Significant Respiratory: Report: SOB with Excertion Cardiovascular: Report: Orthopnea Gastrointestinal: Report: No Significant Genitourinary: Report: No Significant Musculoskeletal: Report: No Significant Neurological: Report: Weakness Physical Exam - Physical Exam HEENT: Report: Ears Nose Throat within normal limits Neck: Report: Within normal limits Cardiovascular Systems: Report: Regular, Rate and Rhythm Respiratory: Report: Other (Rude respiration) Abdomen: Report: Non-tender to palpation Back: Report: Inspection of back is within normal limits. Extremities: Report: Other (No edema) Skin: Report: Color of skin is within normal limits, Warm Neuro/Psych: Report: Mood affect is within normal limits - Lab Results All Lab Results last 24 hours: Laboratory Results - last 24 hr 08/15/18 08/15/18 08/15/18 06:00 06:00 06:00 WBC 11.2 H RBC 3.40 L Hgb 10.4 L Hct 30.9 L MCV 90.9 MCH 30.7 MCHC Differential 33.8 RDW 14.8 Plt Count 320 MPV 8.9 Neutrophils % 69.5 Lymphocytes % 21.4 Monocytes % 6.4 Eosinophils % 2.0 Basophils % 0.7 D-Dimer 437 H Sodium 137 Potassium 3.9 Chloride 91 L Carbon Dioxide 27.2 Anion Gap 22.7 H BUN 60 H Creatinine 5.9 H* Est GFR ( Amer) 12.3 Est GFR (Non-Af Amer) 10.1 BUN/Creatinine Ratio 10.2 Glucose 355 H Whole Bld Lactic Acid 3.99 H* Calcium 8.8 Magnesium 2.3 Total Bilirubin 0.6 AST 17 ALT 31 Alkaline Phosphatase 21 L Creatine Kinase CK-MB (CK-2) Troponin I 1.62 H* D B-Natriuretic Peptide Total Protein 7.7 Albumin 4.3 Globulin 3.4 Albumin/Globulin Ratio 1.3 08/15/18 08/15/18 08/15/18 06:00 06:00 08:00 WBC RBC Hgb Hct MCV MCH MCHC Differential RDW Plt Count MPV Neutrophils % Lymphocytes % Monocytes % Eosinophils % Basophils % D-Dimer Sodium Potassium Chloride Carbon Dioxide Anion Gap BUN Creatinine Est GFR ( Amer) Est GFR (Non-Af Amer) BUN/Creatinine Ratio Glucose Whole Bld Lactic Acid 2.60 H* Calcium Magnesium Total Bilirubin AST ALT Alkaline Phosphatase Creatine Kinase 458 H CK-MB (CK-2) 8.6 H Troponin I B-Natriuretic Peptide 2580.0 H Total Protein Albumin Globulin Albumin/Globulin Ratio - Assessment Assessment: Patient is awake, alert, with nasal O2, in no acute distress. Dx: CHF exacerbation, Right pleural effusion, Lactic acidosis, ESRD on HD, DM, HTN, - Plan Plan: Patient is in [place] lock, continue with home meds, consult with Nephro is request for HD, diabetic diet. Will continue to monitor.
[2018-08-15] MEDS: Aspirin 81mg Chewable Tab PO SCH (12:37)
[2018-08-15] MEDS ORDERED: Heparin 25,000 Units In D5W 25,000 UNITS/250 ML BAG IV PRN (14:00)
[2018-08-15 14:47] LABS: % BASOPHILS 0.8 % (0.0-2.0); % EOSINOPHILS 0.9 % (0.0-5.0); % LYMPHOCYTES 14.7 % (20.0-50.0); % MONOCYTES 5.6 % (2.0-10.0); BASOPHILE ABSOLUTE 0.1 Th/cumm (0-0.2); EOSINOPHILE ABSOLUTE 0.1 Th/cmm (0.1-0.4); HEMATOCRIT 30.1 % (41.0-60); LYMPHOCYTE ABSOLUTE 1.3 Th/cmm (1.5-3.0); MEAN CELL VOLUME 91.3 fl (80-99); MEAN CORPUSCULAR HEMOGLOBIN 30.2 pg (27.0-31.0); MEAN CORPUSCULAR HGB CONC 33.1 pg (28.0-36.0); MEAN PLATELET VOLUME 8.6 fl; MONOCYTE ABSOLUTE 0.5 Th/cmm (0.3-1.0); NEUTROPHILE ABSOLUTE 6.8 Th/cmm (1.8-8.0); PLATELET COUNT 314 Th/cmm (150-400); RED BLOOD COUNT 3.29 Mil/cmm (3.80-5.80); RED CELL DISTRIBUTION WIDTH 14.8 % (11.5-20.0); WHITE BLOOD COUNT 8.8 Th/cmm (4.8-10.8)
[2018-08-15] MEDS ORDERED: Albuterol Nebulizer 2.5mg/3mL HHN PRN (17:51)
[2018-08-15] MEDS ORDERED: Acetaminophen 500 MG TAB PO PRN (17:52)
[2018-08-15] MEDS: Albuterol Nebulizer 2.5mg/3mL HHN SCH (21:19)
[2018-08-16] MEDS: Albuterol Nebulizer 2.5mg/3mL HHN SCH ×4 (01:45→18:57)
--- NOTE | 2018-08-16 02:29 | Consultation ---
DATE OF CONSULTATION: 08/15/[address] Grimm. HISTORY OF PRESENT ILLNESS: This is a 68-year-old male patient who has been complaining of swelling in both lower extremities. Following this, the patient came to the Emergency Room. The patient has elevated troponin level, BNP level, as well as lactic acidosis. PAST MEDICAL HISTORY: Diabetes mellitus type 2; diabetic CKD, stage V; end-stage renal disease, on dialysis; stable angina; hypertension; iron-deficiency anemia; and lactic acidosis. FAMILY HISTORY: Unremarkable. SOCIAL HISTORY: No history of smoking, alcohol abuse. ALLERGIES: None. PHYSICAL EXAMINATION: VITAL SIGNS: Blood pressure 130/80, pulse 70, and respirations 20. HEAD: Normocephalic. No lumps or bumps. EYES: Pupils equal, reactive to light. Fundi show AV nicking, sclerae white, conjunctivae pink. NECK: Carotid 2+. Normal upstroke. JVD flat. Thyroid not palpable. Lymph nodes not palpable. CHEST: Shows increased AP diameter. No kyphosis, scoliosis. LUNGS: Bilateral rales. Decreased breath sounds both the bases. HEART: PMI sixth intercostal space with lateral to midclavicular line. S1, S2, S3, S4, soft systolic murmur. ABDOMEN: Soft. Liver, spleen not palpable. No organomegaly. Bowel sounds active. NEUROLOGIC: Unremarkable. EXTREMITIES: Peripheral pulses 1+, pedal edema 2+. CLINICAL IMPRESSION: Congestive heart failure, diastolic dysfunction, acute; stable angina; diabetes mellitus type 2, insulin-dependent; diabetic chronic kidney disease, stage V; end-stage renal disease, on dialysis; non-ST elevated myocardial infarction; hypertension; and lactic acidosis. PLAN: The patient to start on heparin drip and dialysis with ultrafiltration. Also get an echocardiogram for left ventricular function. JOB# [id number]
[2018-08-16 06:20] LABS: % BASOPHILS 1.5 % (0.0-2.0); % EOSINOPHILS 3.4 % (0.0-5.0); % LYMPHOCYTES 19.8 % (20.0-50.0); % MONOCYTES 7.2 % (2.0-10.0); % NEUTROPHILS 68.1 % (40.0-80.0); BASOPHILE ABSOLUTE 0.1 Th/cumm (0-0.2); EOSINOPHILE ABSOLUTE 0.3 Th/cmm (0.1-0.4); HEMOGLOBIN 9.7 gm/dL (12-16); LYMPHOCYTE ABSOLUTE 1.9 Th/cmm (1.5-3.0); MEAN CELL VOLUME 90.3 fl (80-99); MEAN CORPUSCULAR HEMOGLOBIN 30.3 pg (27.0-31.0); MEAN CORPUSCULAR HGB CONC 33.6 pg (28.0-36.0); MEAN PLATELET VOLUME 8.7 fl; MONOCYTE ABSOLUTE 0.7 Th/cmm (0.3-1.0); NEUTROPHILE ABSOLUTE 6.8 Th/cmm (1.8-8.0); PLATELET COUNT 308 Th/cmm (150-400); RED BLOOD COUNT 3.21 Mil/cmm (3.80-5.80); WHITE BLOOD COUNT 9.8 Th/cmm (4.8-10.8)
[2018-08-16 06:38] LABS: ALB/GLOB RATIO 1.3 (1.0-1.8); ANION GAP 16.7 (7.0-16.0); BILIRUBIN,TOTAL 0.8 mg/dL (0.3-1.0); CALCIUM SERUM 8.9 mg/dL (8.6-10.3); CARBON DIOXIDE 30.3 mEq/L (21.0-31.0); GFR AFRICAN-AMERICAN 15.5 ml/min (>90); GFR NON AFRICAN-AMERICAN 12.8 ml/min; TOTAL PROTEIN,SERUM 7.1 gm/dL (6.0-8.3)
[2018-08-16 06:47] LABS: CREATININE - SERUM 4.8 mg/dL (0.7-1.3)
[2018-08-16] MEDS: INSULIN ASPART SLIDING SCALE 100 UNITS/ML UNIT SUBQ SCH ×2 (07:42→16:13)
[2018-08-16 08:08] LABS: HEP A AB IGM Negative (Negative); HEP B CORE IGM Negative (Negative); HEP B SURFACE AG QL Negative (Negative); HEP C ANTIBODY <0.1 s/co ratio (0.0-0.9)
[2018-08-16] MEDS: Aspirin 81mg Chewable Tab PO SCH (09:15)
--- NOTE | 2018-08-16 09:17 | Diagnostic Imaging Report ---
CHEST X-RAY: AP view INDICATION: pain COMPARISON: 08/15/2018 FINDINGS: Congestive changes are again noted with small effusions. Cardiomegaly is noted. IMPRESSION: Findings most represent of mild CHF with small effusions. Pneumonia of the lung bases cannot be completely excluded.
--- NOTE | 2018-08-16 11:33 | General Progress Note ---
Subjective - Review of Systems Service Date: 08/16/18 Subjective: bledding at shunt Objective - Results Result Diagrams: 08/16/18 06:10 08/16/18 06:10 Recent Labs: Laboratory Last Values WBC 9.8 Th/cmm (4.8-10.8) 08/16/18 06:10 RBC 3.21 Mil/cmm (3.80-5.80) L 08/16/18 06:10 Hgb 9.7 gm/dL (12-16) L 08/16/18 06:10 Hct 29.0 % (41.0-60) L 08/16/18 06:10 MCV 90.3 fl (80-99) 08/16/18 06:10 MCH 30.3 pg (27.0-31.0) 08/16/18 06:10 MCHC Differential 33.6 pg (28.0-36.0) 08/16/18 06:10 RDW 15.0 % (11.5-20.0) 08/16/18 06:10 Plt Count 308 Th/cmm (150-400) 08/16/18 06:10 MPV 8.7 fl 08/16/18 06:10 Neutrophils % 68.1 % (40.0-80.0) 08/16/18 06:10 Lymphocytes % 19.8 % (20.0-50.0) L 08/16/18 06:10 Monocytes % 7.2 % (2.0-10.0) 08/16/18 06:10 Eosinophils % 3.4 % (0.0-5.0) 08/16/18 06:10 Basophils % 1.5 % (0.0-2.0) 08/16/18 06:10 PTT (Actin FS) 73.0 SECONDS (26.0-38.0) H 08/16/18 07:15 D-Dimer 437 ng/mL (100-400) H 08/15/18 06:00 Sodium 138 mEq/L (136-145) 08/16/18 06:10 Potassium 4.0 mEq/L (3.5-5.1) 08/16/18 06:10 Chloride 95 mEq/L (98-107) L 08/16/18 06:10 Carbon Dioxide 30.3 mEq/L (21.0-31.0) 08/16/18 06:10 Anion Gap 16.7 (7.0-16.0) H 08/16/18 06:10 BUN 43 mg/dL (7-25) H 08/16/18 06:10 Creatinine 4.8 mg/dL (0.7-1.3) H* 08/16/18 06:10 Est GFR ( Amer) 15.5 ml/min (>90) 08/16/18 06:10 Est GFR (Non-Af Amer) 12.8 ml/min 08/16/18 06:10 BUN/Creatinine Ratio 9.0 08/16/18 06:10 Glucose 235 mg/dL (70-105) H 08/16/18 06:10 POC Glucose 227 MG/DL (70 - 105) H 08/16/18 06:54 Whole Bld Lactic Acid 2.60 mmol/L (0.60-1.99) H* 08/15/18 08:00 Calcium 8.9 mg/dL (8.6-10.3) 08/16/18 06:10 Magnesium 2.3 mg/dL (1.9-2.7) 08/15/18 06:00 Total Bilirubin 0.8 mg/dL (0.3-1.0) 08/16/18 06:10 AST 14 U/L (13-39) 08/16/18 06:10 ALT 26 U/L (7-52) 08/16/18 06:10 Alkaline Phosphatase 22 U/L (34-104) L 08/16/18 06:10 Creatine Kinase 458 U/L (30-223) H 08/15/18 06:00 CK-MB (CK-2) 8.6 ng/mL (0.6-6.3) H 08/15/18 06:00 Troponin I 1.06 ng/mL (0.01-0.05) H* D 08/16/18 06:10 B-Natriuretic Peptide 2580.0 pg/mL (5.0-100.0) H 08/15/18 06:00 Total Protein 7.1 gm/dL (6.0-8.3) 08/16/18 06:10 Albumin 4.0 gm/dL (4.2-5.5) L 08/16/18 06:10 Globulin 3.1 gm/dL 08/16/18 06:10 Albumin/Globulin Ratio 1.3 (1.0-1.8) 08/16/18 06:10 TSH 2.19 uIU/ml (0.34-5.60) 08/16/18 06:10 Hepatitis A IgM Ab Negative (Negative) 08/15/18 06:00 Hep Bs Antigen Negative (Negative) 08/15/18 06:00 Hep B Core IgM Ab Negative (Negative) 08/15/18 06:00 Hepatitis C Antibody <0.1 s/co ratio (0.0-0.9) 08/15/18 06:00 - Physical Exam Vitals and I&O: Vital Signs Temp 97.5 F 08/16/18 08:00 Pulse 71 08/16/18 09:15 Resp 18 08/16/18 09:00 BP 117/67 08/16/18 09:15 Pulse Ox 97 08/16/18 08:00 Intake & Output 08/15/18 08/16/18 08/16/18 18:59 06:59 18:59 Intake Total 100 326.233 103.075 Balance 100 326.233 103.075 Weight (lbs) 81.193 kg 81.193 kg Intake: Intake, IV Amount 126.233 103.075 Heparin 25,000 Units In 126.233 103.075 D5W 25,000 units In 250 ml @ 1,550 UNITS/HR 15.5 mls/hr IV TITR PRN Rx#: [id number] Oral 100 200 Other: # Voids 2 # Bowel Movements 0 1 Stool Characteristics Formed Weight Source Bedscale Bedscale Active Medications: Current Medications Acetaminophen (Tylenol Extra Strength) 500 mg PO Q6H PRN PRN Reason: Pain (Moderate) Stop: 10/14/18 17:51 Albuterol Sulfate (Albuterol 2.5mg/3ml Neb Ud) 2.5 mg HHN Q6HRT TERA Stop: 10/14/18 18:59 Last Admin: 08/16/18 06:50 Dose: 2.5 mg Albuterol Sulfate (Albuterol 2.5mg/3ml Neb Ud) 2.5 mg HHN Q2H PRN PRN Reason: Shortness of Breath Stop: 10/14/18 17:50 Aspirin (Aspirin Chewable) 81 mg PO DAILY [facility] Stop: 10/14/18 09:14 Last Admin: 08/16/18 09:15 Dose: 81 mg Heparin Sodium/Dextrose (Heparin Drip) 25,000 units in 250 mls @ 15.5 mls/hr IV TITR PRN; Protocol PRN Reason: PROTOCOL Stop: 10/14/18 13:59 Last Titration: 08/16/18 07:54 Dose: 1,500 units/hr, 15 mls/hr Insulin Aspart (Novolog Insulin Sliding Scale) 0 units SUBQ BIDAC TERA; Protocol Stop: 10/15/18 07:29 Last Admin: 08/16/18 07:42 Dose: 4 units Labetalol HCl (Trandate) 200 mg PO DAILY TERA Stop: 10/14/18 09:14 Last Admin: 08/16/18 09:15 Dose: 200 mg Minoxidil (Loniten) 5 mg PO BID TERA Stop: 10/14/18 09:14 Last Admin: 08/16/18 09:15 Dose: 5 mg Miscellaneous (Heparin Drip Per Pharmacy) 1 ea MC PRN TERA; Protocol Stop: 10/14/18 13:29 Ondansetron HCl (Zofran) 4 mg IV Q6H PRN PRN Reason: Nausea / Vomiting Stop: 10/14/18 13:02 - Procedures Procedures: Procedures Procedure Code Date BYPASS LEFT BRACHIAL ARTERY TO UPPER ARM VEIN, OPEN APPROACH [id number] 06/09/17 INSERTION OF INFUSION DEV INTO INF VENA CAVA, PERC APPROACH [id number] 06/09/17 INSERTION OF INFUSION DEV INTO SUP VENA CAVA, PERC APPROACH 65TF61C 06/09/17 PERFORMANCE OF URINARY FILTRATION, <6 HRS/DAY [id number] 08/07/18 REMOVAL OF INFUSION DEVICE FROM UPPER VEIN, METAL HARDENER APPROACH [id number] 06/09/17 ULTRASONOGRAPHY OF SUPERIOR VENA CAVA, GUIDANCE [id number] 06/09/17 Assessment/Plan - Assessment Assessment: Congestive heart failure diastolic dysfunction and acute Non-STEMI myocardial infarction Diabetes mellitus type 2 insulin-dependent Diabetics EKG states Wednesday end-stage renal disease on dialysis Iron deficiency anemia secondary to see daily stage v Hypertension Lactic acidosis - Plan Plan: We will hold heparin as patient has bleeding from the AV fistula Dialysis with ultrafiltration Await echocardiogram
[2018-08-16] MEDS ORDERED: Vancomycin HCl 1.5 GM in Sodium Chloride 0.9% 500 ML IV ONE (14:30)
--- NOTE | 2018-08-16 15:00 | Consultation ---
DATE OF CONSULTATION: 08/16/2018 INFECTIOUS DISEASE CONSULTATION REFERRING PHYSICIAN: Aureliano Nguyen M.D. REASON FOR CONSULTATION: Bacteremia. HISTORY OF PRESENT ILLNESS: The patient is a 68-year-old male with a past medical of coronary artery disease, CHF, hypertension, CKD stage 5, on hemodialysis through AV shunt in the left upper extremity, developed shortness of breath and edema of both lower extremities. He stated that he did not miss any hemodialysis treatment. On initial evaluation, his temperature was 97.8 degree Fahrenheit and WBC count was 11,200. His lactic acid was 3.99. Blood cultures were done and one of the sets grew gram-positive cocci in clusters. ID consult was called. The patient was started on vancomycin. PAST MEDICAL HISTORY: Includes diabetes mellitus type 2, hypertension, coronary artery disease, CHF, CKD stage 5, on hemodialysis. ALLERGIES: NKDA. MEDICATIONS: As per medication reconciliation sheet. Antibiotic aguilar, the patient just started on vancomycin, dose is not given yet. REVIEW OF SYSTEMS: GENERAL: The patient denies any fever or chills. HEENT: Denies any diplopia, photophobia, sore throat. RESPIRATORY: The patient denies any cough or shortness of breath. His shortness of breath has improved. CARDIOVASCULAR: No chest pain, no palpitation. GASTROINTESTINAL: No nausea, no vomiting, no diarrhea, no constipation. GENITOURINARY: No dysuria. NEUROLOGIC: No headache, no dizziness, no focal weakness. PHYSICAL EXAMINATION: VITAL SIGNS: Shows temperature is 97.2, pulse 57, respirations 18, blood pressure 123/64. GENERAL: The patient is comfortable lying in the bed, not in acute distress. HEENT: Head is normocephalic, atraumatic. Oral cavity is moist, pink tongue. Eyes: Pallor is present, no icterus. Pupils PERRLA, EOMI. NECK: Supple, no JVD, no bruit. Trachea midline. CHEST: Bilateral breath sounds. No crackles or wheezing. HEART: S1, S2 within normal limits. Regular rhythm. No murmur, no gallop. ABDOMEN: Soft, nontender, nondistended. Bowel sounds present. EXTREMITIES: No cyanosis, no clubbing. The patient had left arm AV shunt. No bleeding, no discharge, no erythema. NEUROLOGICAL: Alert, awake, and oriented x 3. No focal deficit. LABORATORY DATA: Current lab shows WBC count is 9800, hemoglobin 9.7, hematocrit 29, platelets are 308,000, neutrophils 60.1%. Sodium is 138, potassium 4, chloride 95, bicarbonate is 30, BUN is 43, creatinine 4.8, glucose 235. Troponin 1.06 and last lactic acid was 2.6. Blood culture one of the two sets grew gram-positive cocci in clusters and MRSA screen was negative. Chest x-ray showed CHF and mild effusion. IMPRESSION: 1. Staph bacteremia. 2. Shortness of breath, improved secondary to fluid overload, congestive heart failure. 3. Chronic kidney disease stage 5, on hemodialysis. 4. Hypertension. 5. Coronary artery disease. 6. Diabetes mellitus type 2. PLAN AND RECOMMENDATIONS: We will continue vancomycin. Prior to giving vancomycin, we will get two sets of blood cultures. I have discussed the case with the patient and family in detail with the help of a strategic marketing specialist. Depending on identification of the bacteria in the blood, we will define final plan. Thank you, Dr. Nguyen, for involving me in taking care of this patient. JOB# [id number]
[2018-08-16] MEDS: Ferrous Sulfate 325 MG TAB PO SCH (16:09)
--- NOTE | 2018-08-16 16:20 | Consultation ---
DATE OF CONSULTATION: RENAL CONSULTATION LOCATION: [facility], room #9, bed A. Thank you very much, Dr. Nguyen for allowing me to participate in the management of this patient of yours. IDENTIFICATION AND HISTORY OF PRESENT ILLNESS: This is a 68-year-old male patient who is known case of CKD V, on chronic hemodialysis. The patient also has a history of diabetes mellitus, hypertension, and left upper extremity AV fistula. The patient was doing fairly well. In fact, the patient was recently discharged from this hospital. The patient now again came to the Emergency Room with complaint of shortness of breath and lower extremity edema. In the Emergency Room, the patient was found to have CHF, increased troponin. The patient has been admitted. A renal consultation has been requested. The patient denies fever, denies any vomiting or diarrhea. The patient does not have any seizures, fall, or trauma. The patient does not have any hematuria, anuria, or fever. PAST SURGICAL HISTORY: History of left upper extremity AV fistula and history of Perm-A-Cath. PAST MEDICAL HISTORY: Diabetes mellitus, hypertension, CKD V, anemia, and hyperlipidemia. SOCIAL HISTORY: No history of alcoholism or smoking. The patient lives at home well supported by the family. PHYSICAL EXAMINATION: VITAL SIGNS: Temperature 97.2, blood pressure 123/64, pulse 83, and respirations 18. Yesterday's intake 426, output 126. HEENT: Head normocephalic, atraumatic. Eyes, sclerae is nonicteric. Conjunctivae are pale. Pupils reactive. NECK: Thyroid is nontender, not enlarged. Jugular venous pressure slightly distended. No lymphadenopathy. No neck stiffness. LUNGS: Few rhonchi at both the bases. CARDIOVASCULAR: Regular, no rub or gallop. ABDOMEN: Soft. EXTREMITIES: Trace edema of both lower extremities. LABORATORY DATA: Creatinine 4.8 and potassium 4. Hemoglobin 9.7. Sodium 138. Troponin 1.0 and previous troponin 1.3. TSH 2.1. ASSESSMENT: 1. Chronic kidney disease, V, on chronic hemodialysis. 2. Hypertension. 3. Anemia secondary to chronic kidney disease. 4. Diabetes mellitus. 5. Rule out coronary artery disease. 6. Obesity. 7. Hyperlipidemia. PLAN: Hemodialysis will be done tomorrow. We will start the patient on Epogen subcutaneous and ferrous sulfate by mouth. We will also start the patient on phosphate binder. The patient has been seen by rn er. Further treatment depends upon the outcome of this management. JOB# [id number]
--- NOTE | 2018-08-16 20:20 | General Progress Note ---
Subjective - Review of Systems Service Date: 08/16/18 Subjective: Patient seen and examined chart reviewed patient doing fine denied chest pain or trouble breathing AV shunt site bleeding reported Objective - Results Result Diagrams: 08/16/18 06:10 08/16/18 06:10 Recent Labs: Laboratory Last Values WBC 9.8 Th/cmm (4.8-10.8) 08/16/18 06:10 RBC 3.21 Mil/cmm (3.80-5.80) L 08/16/18 06:10 Hgb 9.7 gm/dL (12-16) L 08/16/18 06:10 Hct 29.0 % (41.0-60) L 08/16/18 06:10 MCV 90.3 fl (80-99) 08/16/18 06:10 MCH 30.3 pg (27.0-31.0) 08/16/18 06:10 MCHC Differential 33.6 pg (28.0-36.0) 08/16/18 06:10 RDW 15.0 % (11.5-20.0) 08/16/18 06:10 Plt Count 308 Th/cmm (150-400) 08/16/18 06:10 MPV 8.7 fl 08/16/18 06:10 Neutrophils % 68.1 % (40.0-80.0) 08/16/18 06:10 Lymphocytes % 19.8 % (20.0-50.0) L 08/16/18 06:10 Monocytes % 7.2 % (2.0-10.0) 08/16/18 06:10 Eosinophils % 3.4 % (0.0-5.0) 08/16/18 06:10 Basophils % 1.5 % (0.0-2.0) 08/16/18 06:10 PTT (Actin FS) 29.6 SECONDS (26.0-38.0) 08/16/18 14:20 D-Dimer 437 ng/mL (100-400) H 08/15/18 06:00 Sodium 138 mEq/L (136-145) 08/16/18 06:10 Potassium 4.0 mEq/L (3.5-5.1) 08/16/18 06:10 Chloride 95 mEq/L (98-107) L 08/16/18 06:10 Carbon Dioxide 30.3 mEq/L (21.0-31.0) 08/16/18 06:10 Anion Gap 16.7 (7.0-16.0) H 08/16/18 06:10 BUN 43 mg/dL (7-25) H 08/16/18 06:10 Creatinine 4.8 mg/dL (0.7-1.3) H* 08/16/18 06:10 Est GFR ( Amer) 15.5 ml/min (>90) 08/16/18 06:10 Est GFR (Non-Af Amer) 12.8 ml/min 08/16/18 06:10 BUN/Creatinine Ratio 9.0 08/16/18 06:10 Glucose 235 mg/dL (70-105) H 08/16/18 06:10 POC Glucose 376 MG/DL (70 - 105) H 08/16/18 15:56 Whole Bld Lactic Acid 2.60 mmol/L (0.60-1.99) H* 08/15/18 08:00 Calcium 8.9 mg/dL (8.6-10.3) 08/16/18 06:10 Magnesium 2.3 mg/dL (1.9-2.7) 08/15/18 06:00 Total Bilirubin 0.8 mg/dL (0.3-1.0) 08/16/18 06:10 AST 14 U/L (13-39) 08/16/18 06:10 ALT 26 U/L (7-52) 08/16/18 06:10 Alkaline Phosphatase 22 U/L (34-104) L 08/16/18 06:10 Creatine Kinase 458 U/L (30-223) H 08/15/18 06:00 CK-MB (CK-2) 8.6 ng/mL (0.6-6.3) H 08/15/18 06:00 Troponin I 0.91 ng/mL (0.01-0.05) H* D 08/16/18 14:20 B-Natriuretic Peptide 2580.0 pg/mL (5.0-100.0) H 08/15/18 06:00 Total Protein 7.1 gm/dL (6.0-8.3) 08/16/18 06:10 Albumin 4.0 gm/dL (4.2-5.5) L 08/16/18 06:10 Globulin 3.1 gm/dL 08/16/18 06:10 Albumin/Globulin Ratio 1.3 (1.0-1.8) 08/16/18 06:10 TSH 2.19 uIU/ml (0.34-5.60) 08/16/18 06:10 Hepatitis A IgM Ab Negative (Negative) 08/15/18 06:00 Hep Bs Antigen Negative (Negative) 08/15/18 06:00 Hep B Core IgM Ab Negative (Negative) 08/15/18 06:00 Hepatitis C Antibody <0.1 s/co ratio (0.0-0.9) 08/15/18 06:00 - Physical Exam Vitals and I&O: Vital Signs Temp 97.3 F 08/16/18 20:00 Pulse 55 08/16/18 20:00 Resp 20 08/16/18 20:00 BP 116/52 08/16/18 20:00 Pulse Ox 98 08/16/18 20:00 Intake & Output 08/16/18 08/16/18 08/17/18 06:59 18:59 06:59 Intake Total 326.233 303.075 Balance 326.233 303.075 Weight (lbs) 81.193 kg 82.1 kg Intake: Intake, IV Amount 126.233 103.075 Heparin 25,000 Units In 126.233 103.075 D5W 25,000 units In 250 ml @ 1,550 UNITS/HR 15.5 mls/hr IV TITR PRN Rx#: [id number] Oral 200 200 Other: # Voids 2 3 # Bowel Movements 1 1 Weight Source Bedscale Bedscale Active Medications: Current Medications Acetaminophen (Tylenol Extra Strength) 500 mg PO Q6H PRN PRN Reason: Pain (Moderate) Stop: 10/14/18 17:51 Albuterol Sulfate (Albuterol 2.5mg/3ml Neb Ud) 2.5 mg HHN Q6HRT [facility] Stop: 10/14/18 18:59 Last Admin: 08/16/18 18:57 Dose: 2.5 mg Albuterol Sulfate (Albuterol 2.5mg/3ml Neb Ud) 2.5 mg HHN Q2H PRN PRN Reason: Shortness of Breath Stop: 10/14/18 17:50 Aspirin (Aspirin Chewable) 81 mg PO DAILY [facility] Stop: 10/14/18 09:14 Last Admin: 08/16/18 09:15 Dose: 81 mg Epoetin Drake (Epogen) 10,000 units SUBQ MWF@1500 [facility] Stop: 10/16/18 14:59 Ferrous Sulfate (Iron) 325 mg PO BID [facility] Stop: 10/15/18 16:59 Last Admin: 08/16/18 16:09 Dose: 325 mg Insulin Aspart (Novolog Insulin Sliding Scale) 0 units SUBQ BIDAC [facility]; Protocol Stop: 10/15/18 07:29 Last Admin: 08/16/18 16:13 Dose: 10 units Labetalol HCl (Trandate) 200 mg PO DAILY [facility] Stop: 10/14/18 09:14 Last Admin: 08/16/18 09:15 Dose: 200 mg Minoxidil (Loniten) 5 mg PO BID [facility] Stop: 10/14/18 09:14 Last Admin: 08/16/18 16:09 Dose: 5 mg Miscellaneous (Vancomycin Iv Per Pharmacy) 1 ea MC PRN PRN PRN Reason: PROTOCOL Stop: 10/15/18 14:22 Ondansetron HCl (Zofran) 4 mg IV Q6H PRN PRN Reason: Nausea / Vomiting Stop: 10/14/18 13:02 Sevelamer Carbonate (Renvela) 2,400 mg PO TIDWM [facility] Stop: 10/15/18 16:59 Last Admin: 08/16/18 16:09 Dose: 2,400 mg General: Alert Cardiovascular: Regular rate Lungs: Clear to auscultation Abdomen: Soft - Procedures Procedures: Procedures Procedure Code Date BYPASS LEFT BRACHIAL ARTERY TO UPPER ARM VEIN, OPEN APPROACH [id number] 06/09/17 INSERTION OF INFUSION DEV INTO INF VENA CAVA, PERC APPROACH [id number] 06/09/17 INSERTION OF INFUSION DEV INTO SUP VENA CAVA, PERC APPROACH [id number] 06/09/17 PERFORMANCE OF URINARY FILTRATION, <6 HRS/DAY [id number] 08/07/18 REMOVAL OF INFUSION DEVICE FROM UPPER VEIN, FACILITY MANAGER HISTOLOGY APPROACH [id number] 06/09/17 ULTRASONOGRAPHY OF SUPERIOR VENA CAVA, GUIDANCE [id number] 06/09/17 Assessment/Plan - Assessment Assessment: NSTMI Fluid overload ESRD on HD HTN - Plan Plan: Heparin on HOLD Monitor bleeding Monitor cardio pul status HD per nephrology Monitor vitals Nutritional Asmnt/Malnutr-PDOC - Dietary Evaluation Malnutrition Findings (Please click <Entered> for more info): Nutritional Asmnt/Malnutrition Start: 08/16/18 13: 29 Text: Status: Complete Freq: Protocol: Document 08/16/18 13:30 [email or web address] (Rec: 08/16/18 13:41 [email or web address] JIN) Nutritional Asmnt/Malnutrition Patient General Information Nutritional Screening High Risk Consult Diagnosis CHF exacerbation, ESRD Pertinent Medical Hx/Surgical Hx CAD, HTN, CHF, ESRD, DM Subjective Information Consult received for elevated blood glucose 355. Pt was sitting up in bed, alert, at time of visit. Pt is icelandic speaking only, unable to give DM education. PO intake is 75% per EMR. Pt is on dialysis noted. Current Diet Order/ Nutrition Support renal, CCHO 60gm, 1000ml fluid restriction Pertinent Medications heparin drip, novolog, zofran, vancomycin Pertinent Labs 08/16 Cl 95, BUN 43, Cr 4.8, glucose 235, POC 227 08/15 Cl 91, BUN 60, Cr 5.9, Glucose 355 Nutritional Hx/Data Height 1.7 m Height (Calculated Centimeters) 170.2 Current Weight (lbs) 81.193 kg Weight (Calculated Kilograms) 81.2 Weight (Calculated Grams) 21528.0 [place] Body Weight 148 Body Mass Index (BMI) 28.0 Weight Status Overweight GI Symptoms GI Symptoms None Last BM 08/16 Difficult in: None Food Allergies No Skin Integrity/Comment: cris chante 19 Current %PO Good (75-100%) Estimated Nutritional Goals BEE in Kcals: Adj wt of IBW Calories/Kcals/Kg 30-35 Kcals Calculated 8269-9496 Protein: Adj wt of IBW Protein g/k.2-1.4 Protein Calculated 84-99 Fluid: ml 1000ml fluid restriction per MD Nutritional Problem 1. Problem Problem altered nutrition related labs Etiology renal dysfunction and hyperglycemia Signs/Symptoms: BUN 43, Cr 4.8, glucose 235, POC 227 Malnutrition Alert Is there a minimum of two criteria No selected? Query Text:Check all the applicable criteria. A minimum of two criteria are recommended for diagnosis of either severe or non-severe malnutrition. Malnutrition Related to Morbid Obesity Malnutrition related to morbid obesity No Intervention/Recommendation Comments 1. Recommended CCHO 60gm due to elevated glucose and hx of DM, RN notified and diet order updated. 2. Continue with renal diet and modify to 90g protein due to patient on dialysis. 3. Monitor PO intake, wt, labs and skin integrity 4. F/U as moderate risk in 3-5 days Expected Outcomes/Goals Expected Outcomes/Goals 1. PO intake to meet at least 75% of nutritional needs. 2. Wt stability, skin to remain intact, labs to approach WNL. Reviewed by Heidi Murillo RD
[2018-08-17] MEDS: Albuterol Nebulizer 2.5mg/3mL HHN SCH ×4 (00:14→19:36)
[2018-08-17 06:27] LABS: % BASOPHILS 1.2 % (0.0-2.0); % EOSINOPHILS 2.8 % (0.0-5.0); % LYMPHOCYTES 15.3 % (20.0-50.0); % MONOCYTES 6.4 % (2.0-10.0); % NEUTROPHILS 74.3 % (40.0-80.0); BASOPHILE ABSOLUTE 0.1 Th/cumm (0-0.2); EOSINOPHILE ABSOLUTE 0.3 Th/cmm (0.1-0.4); HEMATOCRIT 28.9 % (41.0-60); HEMOGLOBIN 9.7 gm/dL (12-16); LYMPHOCYTE ABSOLUTE 1.5 Th/cmm (1.5-3.0); MEAN CELL VOLUME 90.5 fl (80-99); MEAN CORPUSCULAR HEMOGLOBIN 30.3 pg (27.0-31.0); MEAN CORPUSCULAR HGB CONC 33.5 pg (28.0-36.0); MEAN PLATELET VOLUME 9.6 fl; MONOCYTE ABSOLUTE 0.6 Th/cmm (0.3-1.0); NEUTROPHILE ABSOLUTE 7.5 Th/cmm (1.8-8.0); PLATELET COUNT 308 Th/cmm (150-400); RED BLOOD COUNT 3.19 Mil/cmm (3.80-5.80)
[2018-08-17 06:47] LABS: ALB/GLOB RATIO 1.3 (1.0-1.8); ALBUMIN 3.9 gm/dL (4.2-5.5); BILIRUBIN,TOTAL 0.6 mg/dL (0.3-1.0); CALCIUM SERUM 8.8 mg/dL (8.6-10.3); GFR NON AFRICAN-AMERICAN 9.9 ml/min; PHOSPHOROUS 6.1 mg/dL (2.5-5.0)
[2018-08-17] MEDS: INSULIN ASPART SLIDING SCALE 100 UNITS/ML UNIT SUBQ SCH ×2 (06:50→17:55)
[2018-08-17] MEDS: Ferrous Sulfate 325 MG TAB PO SCH ×2 (08:13→16:40)
[2018-08-17] MEDS: Aspirin 81mg Chewable Tab PO SCH (08:13)
--- NOTE | 2018-08-17 14:15 | Progress Notes ---
DATE: 08/17/2018 LOCATION: [facility], room #9, bed A. SUBJECTIVE: The patient is conscious, alert. No complaint of chest pain. He is tolerating food well. No vomiting, diarrhea or fever. OBJECTIVE: VITAL SIGNS: Blood pressure 152/60, pulse 67, temperature 96.9, respiration 18. Yesterday's intake 426. HEART: Regular. LUNGS: Good air entry. ABDOMEN: Soft. EXTREMITIES: No edema. LABORATORY DATA: Hemoglobin 9.7, WBC normal, platelets 308. Potassium 4, creatinine 6, phosphorus 6.1. ASSESSMENT AND PLAN: 1. Chronic kidney disease 5, on chronic hemodialysis. 2. Hypertension. 3. Fluid overload. 4. Diabetes mellitus. 5. Obesity. 6. Hyperlipidemia. PLAN: Hemodialysis will be done today with ultrafiltration. The patient's renal status is stable for discharge. Discussed with nursing staff and patient. JOB# [id number]
--- NOTE | 2018-08-17 14:26 | General Progress Note ---
Subjective - Review of Systems Service Date: 08/17/18 Subjective: bledding at shunt patient is awake and alert normal bleeding from the shunt Objective - Results Result Diagrams: 08/17/18 05:40 08/17/18 05:40 Recent Labs: Laboratory Last Values WBC 10.0 Th/cmm (4.8-10.8) 08/17/18 05:40 RBC 3.19 Mil/cmm (3.80-5.80) L 08/17/18 05:40 Hgb 9.7 gm/dL (12-16) L 08/17/18 05:40 Hct 28.9 % (41.0-60) L 08/17/18 05:40 MCV 90.5 fl (80-99) 08/17/18 05:40 MCH 30.3 pg (27.0-31.0) 08/17/18 05:40 MCHC Differential 33.5 pg (28.0-36.0) 08/17/18 05:40 RDW 15.0 % (11.5-20.0) 08/17/18 05:40 Plt Count 308 Th/cmm (150-400) 08/17/18 05:40 MPV 9.6 fl 08/17/18 05:40 Neutrophils % 74.3 % (40.0-80.0) 08/17/18 05:40 Lymphocytes % 15.3 % (20.0-50.0) L 08/17/18 05:40 Monocytes % 6.4 % (2.0-10.0) 08/17/18 05:40 Eosinophils % 2.8 % (0.0-5.0) 08/17/18 05:40 Basophils % 1.2 % (0.0-2.0) 08/17/18 05:40 PTT (Actin FS) 29.6 SECONDS (26.0-38.0) 08/16/18 14:20 D-Dimer 437 ng/mL (100-400) H 08/15/18 06:00 Sodium 138 mEq/L (136-145) 08/17/18 05:40 Potassium 4.0 mEq/L (3.5-5.1) 08/17/18 05:40 Chloride 95 mEq/L (98-107) L 08/17/18 05:40 Carbon Dioxide 27.0 mEq/L (21.0-31.0) 08/17/18 05:40 Anion Gap 20.0 (7.0-16.0) H 08/17/18 05:40 BUN 66 mg/dL (7-25) H 08/17/18 05:40 Creatinine 6.0 mg/dL (0.7-1.3) H* 08/17/18 05:40 Est GFR ( Amer) 12.0 ml/min (>90) 08/17/18 05:40 Est GFR (Non-Af Amer) 9.9 ml/min 08/17/18 05:40 BUN/Creatinine Ratio 11.0 08/17/18 05:40 Glucose 235 mg/dL (70-105) H 08/17/18 05:40 POC Glucose 225 MG/DL (70 - 105) H 08/17/18 12:13 Whole Bld Lactic Acid 2.60 mmol/L (0.60-1.99) H* 08/15/18 08:00 Calcium 8.8 mg/dL (8.6-10.3) 08/17/18 05:40 Phosphorus 6.1 mg/dL (2.5-5.0) H 08/17/18 05:40 Magnesium 2.3 mg/dL (1.9-2.7) 08/15/18 06:00 Total Bilirubin 0.6 mg/dL (0.3-1.0) 08/17/18 05:40 AST 11 U/L (13-39) L 08/17/18 05:40 ALT 20 U/L (7-52) 08/17/18 05:40 Alkaline Phosphatase 21 U/L (34-104) L 08/17/18 05:40 Creatine Kinase 458 U/L (30-223) H 08/15/18 06:00 CK-MB (CK-2) 8.6 ng/mL (0.6-6.3) H 08/15/18 06:00 Troponin I 0.53 ng/mL (0.01-0.05) H* D 08/16/18 22:30 B-Natriuretic Peptide 2580.0 pg/mL (5.0-100.0) H 08/15/18 06:00 Total Protein 7.0 gm/dL (6.0-8.3) 08/17/18 05:40 Albumin 3.9 gm/dL (4.2-5.5) L 08/17/18 05:40 Globulin 3.1 gm/dL 08/17/18 05:40 Albumin/Globulin Ratio 1.3 (1.0-1.8) 08/17/18 05:40 TSH 2.19 uIU/ml (0.34-5.60) 08/16/18 06:10 Random Vancomycin 19.0 ug/mL (5.0-40.0) 08/17/18 05:40 Hepatitis A IgM Ab Negative (Negative) 08/15/18 06:00 Hep Bs Antigen Negative (Negative) 08/15/18 06:00 Hep B Core IgM Ab Negative (Negative) 08/15/18 06:00 Hepatitis C Antibody <0.1 s/co ratio (0.0-0.9) 08/15/18 06:00 - Physical Exam Vitals and I&O: Vital Signs Temp 96.7 F 08/17/18 11:43 Pulse 65 08/17/18 13:23 Resp 18 08/17/18 13:23 BP 157/58 08/17/18 11:43 Pulse Ox 97 08/17/18 13:23 Intake & Output 08/16/18 08/17/18 08/17/18 18:59 06:59 18:59 Intake Total 303.075 200 Balance 303.075 200 Weight (lbs) 82.1 kg 82.1 kg Intake: Intake, IV Amount 103.075 Heparin 25,000 Units In 103.075 D5W 25,000 units In 250 ml @ 1,550 UNITS/HR 15.5 mls/hr IV TITR PRN Rx#: [id number] Oral 200 200 Other: # Voids 3 3 # Bowel Movements 1 1 Stool Characteristics Formed Formed Weight Source Bedscale Bedscale Active Medications: Current Medications Acetaminophen (Tylenol Extra Strength) 500 mg PO Q6H PRN PRN Reason: Pain (Moderate) Stop: 10/14/18 17:51 Albuterol Sulfate (Albuterol 2.5mg/3ml Neb Ud) 2.5 mg HHN Q6HRT [facility] Stop: 10/14/18 18:59 Last Admin: 08/17/18 13:18 Dose: 2.5 mg Albuterol Sulfate (Albuterol 2.5mg/3ml Neb Ud) 2.5 mg HHN Q2H PRN PRN Reason: Shortness of Breath Stop: 10/14/18 17:50 Aspirin (Aspirin Chewable) 81 mg PO DAILY [facility] Stop: 10/14/18 09:14 Last Admin: 08/17/18 08:13 Dose: Not Given Epoetin Drake (Epogen) 10,000 units SUBQ MWF@1500 [facility] Stop: 10/16/18 14:59 Ferrous Sulfate (Iron) 325 mg PO BID [facility] Stop: 10/15/18 16:59 Last Admin: 08/17/18 08:13 Dose: 325 mg Vancomycin HCl 1.25 gm/ Sodium (Chloride) 250 mls @ 165 mls/hr IV ONCE ONE Stop: 08/17/18 18:30 Insulin Aspart (Novolog Insulin Sliding Scale) 0 units SUBQ BIDAC [facility]; Protocol Stop: 10/15/18 07:29 Last Admin: 08/17/18 06:50 Dose: 4 units Labetalol HCl (Trandate) 200 mg PO DAILY [facility] Stop: 10/14/18 09:14 Last Admin: 08/17/18 08:17 Dose: Not Given Minoxidil (Loniten) 5 mg PO BID [facility] Stop: 10/14/18 09:14 Last Admin: 08/17/18 08:17 Dose: Not Given Miscellaneous (Vancomycin Iv Per Pharmacy) 1 ea MC PRN PRN PRN Reason: PROTOCOL Stop: 10/15/18 14:22 Ondansetron HCl (Zofran) 4 mg IV Q6H PRN PRN Reason: Nausea / Vomiting Stop: 10/14/18 13:02 Sevelamer Carbonate (Renvela) 2,400 mg PO TIDWM [facility] Stop: 10/15/18 16:59 Last Admin: 08/17/18 12:29 Dose: 2,400 mg General: Alert Cardiovascular: Regular rate Lungs: Clear to auscultation Abdomen: Soft - Procedures Procedures: Procedures Procedure Code Date BYPASS LEFT BRACHIAL ARTERY TO UPPER ARM VEIN, OPEN APPROACH [id number] 06/09/17 INSERTION OF INFUSION DEV INTO INF VENA CAVA, PERC APPROACH [id number] 06/09/17 INSERTION OF INFUSION DEV INTO SUP VENA CAVA, PERC APPROACH [id number] 06/09/17 PERFORMANCE OF URINARY FILTRATION, <6 HRS/DAY [id number] 08/07/18 REMOVAL OF INFUSION DEVICE FROM UPPER VEIN, ROLL TENSION TESTER APPROACH [id number] 06/09/17 ULTRASONOGRAPHY OF SUPERIOR VENA CAVA, GUIDANCE [id number] 06/09/17 Assessment/Plan - Assessment Assessment: Congestive heart failure diastolic dysfunction and acute Non-STEMI myocardial infarction Diabetes mellitus type 2 insulin-dependent Diabetics EKG states Wednesday end-stage renal disease on dialysis Iron deficiency anemia secondary to see daily stage v Hypertension Lactic acidosis - Plan Plan: We will hold heparin as patient has bleeding from the AV fistula Dialysis with ultrafiltration Await echocardiogram Nutritional Asmnt/Malnutr-PDOC - Dietary Evaluation Malnutrition Findings (Please click <Entered> for more info): Nutritional Asmnt/Malnutrition Start: 08/16/18 13: 29 Text: Status: Complete Freq: Protocol: Document 08/16/18 13:30 [email or web address] (Rec: 08/16/18 13:41 [email or web address] [email or web address]) Nutritional Asmnt/Malnutrition Patient General Information Nutritional Screening High Risk Consult Diagnosis CHF exacerbation, ESRD Pertinent Medical Hx/Surgical Hx CAD, HTN, CHF, ESRD, DM Subjective Information Consult received for elevated blood glucose 355. Pt was sitting up in bed, alert, at time of visit. Pt is croatian speaking only, unable to give DM education. PO intake is 75% per EMR. Pt is on dialysis noted. Current Diet Order/ Nutrition Support renal, CCHO 60gm, 1000ml fluid restriction Pertinent Medications heparin drip, novolog, zofran, vancomycin Pertinent Labs 08/16 Cl 95, BUN 43, Cr 4.8, glucose 235, POC 227 08/15 Cl 91, BUN 60, Cr 5.9, Glucose 355 Nutritional Hx/Data Height 1.7 m Height (Calculated Centimeters) 170.2 Current Weight (lbs) 81.193 kg Weight (Calculated Kilograms) 81.2 Weight (Calculated Grams) 43788.0 [place] Body Weight 148 Body Mass Index (BMI) 28.0 Weight Status Overweight GI Symptoms GI Symptoms None Last BM 08/16 Difficult in: None Food Allergies No Skin Integrity/Comment: chante lynch 19 Current %PO Good (75-100%) Estimated Nutritional Goals BEE in Kcals: Adj wt of IBW Calories/Kcals/Kg 30-35 Kcals Calculated 0333-5800 Protein: Adj wt of IBW Protein g/k.2-1.4 Protein Calculated 84-99 Fluid: ml 1000ml fluid restriction per MD Nutritional Problem 1. Problem Problem altered nutrition related labs Etiology renal dysfunction and hyperglycemia Signs/Symptoms: BUN 43, Cr 4.8, glucose 235, POC 227 Malnutrition Alert Is there a minimum of two criteria No selected? Query Text:Check all the applicable criteria. A minimum of two criteria are recommended for diagnosis of either severe or non-severe malnutrition. Malnutrition Related to Morbid Obesity Malnutrition related to morbid obesity No Intervention/Recommendation Comments 1. Recommended CCHO 60gm due to elevated glucose and hx of DM, RN notified and diet order updated. 2. Continue with renal diet and modify to 90g protein due to patient on dialysis. 3. Monitor PO intake, wt, labs and skin integrity 4. F/U as moderate risk in 3-5 days Expected Outcomes/Goals Expected Outcomes/Goals 1. PO intake to meet at least 75% of nutritional needs. 2. Wt stability, skin to remain intact, labs to approach WNL. Reviewed by Heidi Murillo RD
[2018-08-17] MEDS ORDERED: Epoetin Alfa 20000 Units/mL Vial SUBQ SCH (15:00)
--- NOTE | 2018-08-17 21:49 | General Progress Note ---
Subjective - Review of Systems Service Date: 08/17/18 Subjective: Patient seen and examined earlier today Patient was getting HD I communicated with the patient through albanian speaking nursing staff. Patient denied chest pain or breathing issue or any other complaints Objective - Results Result Diagrams: 08/17/18 05:40 08/17/18 05:40 Recent Labs: Laboratory Last Values WBC 10.0 Th/cmm (4.8-10.8) 08/17/18 05:40 RBC 3.19 Mil/cmm (3.80-5.80) L 08/17/18 05:40 Hgb 9.7 gm/dL (12-16) L 08/17/18 05:40 Hct 28.9 % (41.0-60) L 08/17/18 05:40 MCV 90.5 fl (80-99) 08/17/18 05:40 MCH 30.3 pg (27.0-31.0) 08/17/18 05:40 MCHC Differential 33.5 pg (28.0-36.0) 08/17/18 05:40 RDW 15.0 % (11.5-20.0) 08/17/18 05:40 Plt Count 308 Th/cmm (150-400) 08/17/18 05:40 MPV 9.6 fl 08/17/18 05:40 Neutrophils % 74.3 % (40.0-80.0) 08/17/18 05:40 Lymphocytes % 15.3 % (20.0-50.0) L 08/17/18 05:40 Monocytes % 6.4 % (2.0-10.0) 08/17/18 05:40 Eosinophils % 2.8 % (0.0-5.0) 08/17/18 05:40 Basophils % 1.2 % (0.0-2.0) 08/17/18 05:40 PTT (Actin FS) 29.6 SECONDS (26.0-38.0) 08/16/18 14:20 D-Dimer 437 ng/mL (100-400) H 08/15/18 06:00 Sodium 138 mEq/L (136-145) 08/17/18 05:40 Potassium 4.0 mEq/L (3.5-5.1) 08/17/18 05:40 Chloride 95 mEq/L (98-107) L 08/17/18 05:40 Carbon Dioxide 27.0 mEq/L (21.0-31.0) 08/17/18 05:40 Anion Gap 20.0 (7.0-16.0) H 08/17/18 05:40 BUN 66 mg/dL (7-25) H 08/17/18 05:40 Creatinine 6.0 mg/dL (0.7-1.3) H* 08/17/18 05:40 Est GFR ( Amer) 12.0 ml/min (>90) 08/17/18 05:40 Est GFR (Non-Af Amer) 9.9 ml/min 08/17/18 05:40 BUN/Creatinine Ratio 11.0 08/17/18 05:40 Glucose 235 mg/dL (70-105) H 08/17/18 05:40 POC Glucose 207 MG/DL (70 - 105) H 08/17/18 17:41 Whole Bld Lactic Acid 2.60 mmol/L (0.60-1.99) H* 08/15/18 08:00 Calcium 8.8 mg/dL (8.6-10.3) 08/17/18 05:40 Phosphorus 6.1 mg/dL (2.5-5.0) H 08/17/18 05:40 Magnesium 2.3 mg/dL (1.9-2.7) 08/15/18 06:00 Total Bilirubin 0.6 mg/dL (0.3-1.0) 08/17/18 05:40 AST 11 U/L (13-39) L 08/17/18 05:40 ALT 20 U/L (7-52) 08/17/18 05:40 Alkaline Phosphatase 21 U/L (34-104) L 08/17/18 05:40 Creatine Kinase 458 U/L (30-223) H 08/15/18 06:00 CK-MB (CK-2) 8.6 ng/mL (0.6-6.3) H 08/15/18 06:00 Troponin I 0.53 ng/mL (0.01-0.05) H* D 08/16/18 22:30 B-Natriuretic Peptide 2580.0 pg/mL (5.0-100.0) H 08/15/18 06:00 Total Protein 7.0 gm/dL (6.0-8.3) 08/17/18 05:40 Albumin 3.9 gm/dL (4.2-5.5) L 08/17/18 05:40 Globulin 3.1 gm/dL 08/17/18 05:40 Albumin/Globulin Ratio 1.3 (1.0-1.8) 08/17/18 05:40 TSH 2.19 uIU/ml (0.34-5.60) 08/16/18 06:10 Random Vancomycin 19.0 ug/mL (5.0-40.0) 08/17/18 05:40 Hepatitis A IgM Ab Negative (Negative) 08/15/18 06:00 Hep Bs Antigen Negative (Negative) 08/15/18 06:00 Hep B Core IgM Ab Negative (Negative) 08/15/18 06:00 Hepatitis C Antibody <0.1 s/co ratio (0.0-0.9) 08/15/18 06:00 - Physical Exam Vitals and I&O: Vital Signs Temp 97.1 F 08/17/18 16:12 Pulse 76 08/17/18 19:36 Resp 18 08/17/18 19:36 BP 164/61 08/17/18 16:41 Pulse Ox 96 08/17/18 19:36 Intake & Output 08/17/18 08/17/18 08/18/18 06:59 18:59 06:59 Intake Total 200 600 Balance 200 600 Weight (lbs) 82.1 kg 82.1 kg Intake: Oral 200 600 Other: # Voids 3 0 # Bowel Movements 1 0 Stool Characteristics Formed Formed Weight Source Bedscale Bedscale General: Alert Cardiovascular: Regular rate Lungs: Clear to auscultation Abdomen: Soft - Procedures Procedures: Procedures Procedure Code Date BYPASS LEFT BRACHIAL ARTERY TO UPPER ARM VEIN, OPEN APPROACH [id number] 06/09/17 INSERTION OF INFUSION DEV INTO INF VENA CAVA, PERC APPROACH [id number] 06/09/17 INSERTION OF INFUSION DEV INTO SUP VENA CAVA, PERC APPROACH [id number] 06/09/17 PERFORMANCE OF URINARY FILTRATION, <6 HRS/DAY [id number] 08/07/18 REMOVAL OF INFUSION DEVICE FROM UPPER VEIN, COSMETIC SALES APPROACH [id number] 06/09/17 ULTRASONOGRAPHY OF SUPERIOR VENA CAVA, GUIDANCE [id number] 06/09/17 Assessment/Plan - Assessment Assessment: Elevated troponin most likely related to ESRD Fluid overload ESRD on HD HTN - Plan Plan: Case discussed with DR BOLES who cleared patient for home discharge and no further cardiac work up recomended DC home today after HD DC plan explained to the patient he understood well Dc plan discussed with the nursing staff Nutritional Asmnt/Malnutr-PDOC - Dietary Evaluation Malnutrition Findings (Please click <Entered> for more info): Nutritional Asmnt/Malnutrition Start: 08/16/18 13: 29 Text: Status: Complete Freq: Protocol: Document 08/16/18 13:30 [email or web address] (Rec: 08/16/18 13:41 [email or web address] JIN) Nutritional Asmnt/Malnutrition Patient General Information Nutritional Screening High Risk Consult Diagnosis CHF exacerbation, ESRD Pertinent Medical Hx/Surgical Hx CAD, HTN, CHF, ESRD, DM Subjective Information Consult received for elevated blood glucose 355. Pt was sitting up in bed, alert, at time of visit. Pt is al[place]ian speaking only, unable to give DM education. PO intake is 75% per EMR. Pt is on dialysis noted. Current Diet Order/ Nutrition Support renal, CCHO 60gm, 1000ml fluid restriction Pertinent Medications heparin drip, novolog, zofran, vancomycin Pertinent Labs 08/16 Cl 95, BUN 43, Cr 4.8, glucose 235, POC 227 08/15 Cl 91, BUN 60, Cr 5.9, Glucose 355 Nutritional Hx/Data Height 1.7 m Height (Calculated Centimeters) 170.2 Current Weight (lbs) 81.193 kg Weight (Calculated Kilograms) 81.2 Weight (Calculated Grams) 92634.0 [place] Body Weight 148 Body Mass Index (BMI) 28.0 Weight Status Overweight GI Symptoms GI Symptoms None Last BM 08/16 Difficult in: None Food Allergies No Skin Integrity/Comment: chante lynch 19 Current %PO Good (75-100%) Estimated Nutritional Goals BEE in Kcals: Adj wt of IBW Calories/Kcals/Kg 30-35 Kcals Calculated [id number] Protein: Adj wt of IBW Protein g/k.2-1.4 Protein Calculated 84-99 Fluid: ml 1000ml fluid restriction per MD Nutritional Problem 1. Problem Problem altered nutrition related labs Etiology renal dysfunction and hyperglycemia Signs/Symptoms: BUN 43, Cr 4.8, glucose 235, POC 227 Malnutrition Alert Is there a minimum of two criteria No selected? Query Text:Check all the applicable criteria. A minimum of two criteria are recommended for diagnosis of either severe or non-severe malnutrition. Malnutrition Related to Morbid Obesity Malnutrition related to morbid obesity No Intervention/Recommendation Comments 1. Recommended CCHO 60gm due to elevated glucose and hx of DM, RN notified and diet order updated. 2. Continue with renal diet and modify to 90g protein due to patient on dialysis. 3. Monitor PO intake, wt, labs and skin integrity 4. F/U as moderate risk in 3-5 days Expected Outcomes/Goals Expected Outcomes/Goals 1. PO intake to meet at least 75% of nutritional needs. 2. Wt stability, skin to remain intact, labs to approach WNL. Reviewed by Heidi Murillo RD
== END 2018-08-17 20:15 | disposition home or self-care (01) | DRG 190 ==
LOC: ER 05:52 → TELE 07:41
PROVIDERS: ADMIT Family Medicine; ATTEND Family Medicine
PROC: 5A1D70Z Performance of Urinary Filtration, Intermittent, Less than 6 Hours Per Day (ICD-10-PCS; principal; 2018-08-15)
PROC: 5A1D70Z Performance of Urinary Filtration, Intermittent, Less than 6 Hours Per Day (ICD-10-PCS; 2018-08-17)
DX: I21.4 Non-ST elevation (NSTEMI) myocardial infarction (principal); E87.2 Acidosis; I13.2 Hypertensive heart and chronic kidney disease with heart failure and with stage 5 chronic kidney disease, or end stage renal disease; I50.33 Acute on chronic diastolic (congestive) heart failure; E11.22 Type 2 diabetes mellitus with diabetic chronic kidney disease; N18.6 End stage renal disease; D63.1 Anemia in chronic kidney disease; E78.5 Hyperlipidemia, unspecified; I25.119 Atherosclerotic heart disease of native coronary artery with unspecified angina pectoris; D50.9 Iron deficiency anemia, unspecified; E66.9 Obesity, unspecified; Z68.28 Body mass index [BMI] 28.0-28.9, adult
CPT/HCPCS: 36415-UA; 71045-TC; 80053-TC; 80074-90; 80202-TC; 82550-TC; 82553; 82948-90; 83605; 83735-TC; 83880-TC; 84100-TC; 84443-TC; 84484-TC; 85025-TC; 85379-TC; 85730-TC; 90937; 93005; 94640; 94760; J0885; J1644; J1815; J2405; J3370; J7030; J7040; J7613; Z7610

== ENCOUNTER 2018-09-13 22:31 | Emergency (ER) | payer MEDICAID ==
--- NOTE | 2018-09-13 22:49 | ED Physician Chart ---
ED Chief Complaint/HPI - Patient Information Date Seen:: 09/13/18 Time Seen:: 22:47 Chief Complaint:: RUQ abdominal pain History of Present Illness:: 68 yo male with history of ESRD on HD (Mon, Tue, [place], Sat), had new onset of RUQ pain one hour prior, without nausea, vomiting, diarrhea or fever. Allergies:: Allergies Allergy/AdvReac Type Severity Reaction Status Date / Time No Known Allergies Allergy Verified 09/13/18 22:33 Vitals:: Vital Signs - 8 hr 09/13/18 22:35 Temp 98.1 F HR 77 RR 20 BP 138/60 O2 Sat % 96 ED Review of Systems - Review of Systems General/Constitutional: No fever Skin: No rash Head: No headache Eyes: No pain ENT: No earache Neck: No neck pain Cardio Vascular: No chest pain Pulmonary: No SOB GI: No nausea, No vomiting, Pain Musculoskeletal: No bone or joint pain Neurological: No focal symptoms ED Past Medical History - Past Medical History Past Medical History: HTN, DM, ESRD Social History: Non Smoker, No Alcohol, No Drug Use Family Medical History - Family Member Mother History Unknown: Yes Ethnicity: Living Status: Still Living Hx Family Cancer: No Hx Family Coronary Artery Disease: Yes Hx Family Congestive Heart Failure: Yes Hx Family Hypertension: Yes Hx Family Stroke: No Hx Family Diabetes: No Hx Family Seizures: No Hx Family Dementia: No Hx Family AIDS: No Hx Family HIV: No Hx Family COPD: Yes Hx Family Hepatitis: No Hx Family Psychiatric Problems: No Hx Family Tuberculosis: No ED Physical Exam - Physical Examination General/Constitutional: Awake, Alert Head: Atraumatic Eyes: PERRL Skin: No ecchymosis ENMT: Nasal exam nl Neck: No nuchal rigidity Respiratory: Nl effort/Exclusion, No Wheeze/Rhonchi/Rales Cardio Vascular: RRR, No murmur, gallop, rubs, NL S1 S2 Other GI comments:: RUQ tenderness Extremities: normal strength in all extremities Neuro/Psych: No focal deficits ED Labs/Radiology/EKG Results - Lab Results Results: Laboratory Last Values WBC 7.2 Th/cmm (4.8-10.8) 09/13/18 23:07 RBC 3.26 Mil/cmm (3.80-5.80) L 09/13/18 23:07 Hgb 9.9 gm/dL (12-16) L 09/13/18 23:07 Hct 30.3 % (41.0-60) L 09/13/18 23:07 MCV 93.0 fl (80-99) 09/13/18 23:07 MCH 30.5 pg (27.0-31.0) 09/13/18 23:07 MCHC Differential 32.8 pg (28.0-36.0) 09/13/18 23:07 RDW 16.9 % (11.5-20.0) 09/13/18 23:07 Plt Count 278 Th/cmm (150-400) 09/13/18 23:07 MPV 7.9 fl 09/13/18 23:07 Neutrophils % 61.3 % (40.0-80.0) 09/13/18 23:07 Lymphocytes % 22.1 % (20.0-50.0) 09/13/18 23:07 Monocytes % 10.8 % (2.0-10.0) H 09/13/18 23:07 Eosinophils % 4.5 % (0.0-5.0) 09/13/18 23:07 Basophils % 1.3 % (0.0-2.0) 09/13/18 23:07 PT 11.5 SECONDS (9.5-11.5) 09/13/18 23:07 INR 1.12 (0.5-1.4) 09/13/18 23:07 PTT (Actin FS) 27.9 SECONDS (26.0-38.0) 09/13/18 23:07 Sodium 142 mEq/L (136-145) 09/13/18 23:07 Potassium 3.9 mEq/L (3.5-5.1) 09/13/18 23:07 Chloride 94 mEq/L (98-107) L 09/13/18 23:07 Carbon Dioxide 34.8 mEq/L (21.0-31.0) H 09/13/18 23:07 Anion Gap 17.1 (7.0-16.0) H 09/13/18 23:07 BUN 42 mg/dL (7-25) H 09/13/18 23:07 Creatinine 4.6 mg/dL (0.7-1.3) H* 09/13/18 23:07 Est GFR ( Amer) 16.3 ml/min (>90) 09/13/18 23:07 Est GFR (Non-Af Amer) 13.5 ml/min 09/13/18 23:07 BUN/Creatinine Ratio 9.1 09/13/18 23:07 Glucose 214 mg/dL (70-105) H 09/13/18 23:07 Calcium 8.5 mg/dL (8.6-10.3) L 09/13/18 23:07 Total Bilirubin 0.8 mg/dL (0.3-1.0) 09/13/18 23:07 AST 15 U/L (13-39) 09/13/18 23:07 ALT 9 U/L (7-52) 09/13/18 23:07 Alkaline Phosphatase 24 U/L (34-104) L 09/13/18 23:07 Total Protein 6.9 gm/dL (6.0-8.3) 09/13/18 23:07 Albumin 4.1 gm/dL (4.2-5.5) L 09/13/18 23:07 Globulin 2.8 gm/dL 09/13/18 23:07 Albumin/Globulin Ratio 1.5 (1.0-1.8) 09/13/18 23:07 Amylase 58 U/L (29-103) 09/13/18 23:07 Lipase 45 U/L (11-82) 09/13/18 23:07 - Radiology Results Results: U/S abdomen, showed echo shadowing CT abdomen/pelvis showed cholelithasis ED Assessment - Assessment General Assessment: Biliary colic Cholelithiasis ESRD on HD Anemia of chronic disease Hypertension Assessment/Comments:: CBC, CMP, lipase, amylase Abdominal U/S CT abdomen/pelvis Morphine 2mg IM ED Septic Shock - . Is Septic Shock (SBP<90, OR Lactate>4 mmol\L) present?: No - <6hrs of presentation: Vital Signs: Vital Signs - 8 hr 09/13/18 22:35 Temp 98.1 F HR 77 RR 20 BP 138/60 O2 Sat % 96 ED Reassessment (Disposition) - Reassessment Reassessment Condition:: Improved - Aftercare/Follow up Instructions Notes:: Follow up PCP or return to ER if sypmtoms worsen - Patient Disposition Discharge/Transfer:: Home
[2018-09-13 23:25] LABS: % BASOPHILS 1.3 % (0.0-2.0); % EOSINOPHILS 4.5 % (0.0-5.0); % LYMPHOCYTES 22.1 % (20.0-50.0); % MONOCYTES 10.8 % (2.0-10.0); % NEUTROPHILS 61.3 % (40.0-80.0); BASOPHILE ABSOLUTE 0.1 Th/cumm (0-0.2); EOSINOPHILE ABSOLUTE 0.3 Th/cmm (0.1-0.4); HEMATOCRIT 30.3 % (41.0-60); HEMOGLOBIN 9.9 gm/dL (12-16); LYMPHOCYTE ABSOLUTE 1.6 Th/cmm (1.5-3.0); MEAN CORPUSCULAR HEMOGLOBIN 30.5 pg (27.0-31.0); MEAN CORPUSCULAR HGB CONC 32.8 pg (28.0-36.0); MEAN PLATELET VOLUME 7.9 fl; MONOCYTE ABSOLUTE 0.8 Th/cmm (0.3-1.0); NEUTROPHILE ABSOLUTE 4.4 Th/cmm (1.8-8.0); PLATELET COUNT 278 Th/cmm (150-400); RED BLOOD COUNT 3.26 Mil/cmm (3.80-5.80); RED CELL DISTRIBUTION WIDTH 16.9 % (11.5-20.0); WHITE BLOOD COUNT 7.2 Th/cmm (4.8-10.8)
[2018-09-13 23:33] LABS: ALB/GLOB RATIO 1.5 (1.0-1.8); ALBUMIN 4.1 gm/dL (4.2-5.5); ANION GAP 17.1 (7.0-16.0); BILIRUBIN,TOTAL 0.8 mg/dL (0.3-1.0); CALCIUM SERUM 8.5 mg/dL (8.6-10.3); CARBON DIOXIDE 34.8 mEq/L (21.0-31.0); GFR AFRICAN-AMERICAN 16.3 ml/min (>90); GFR NON AFRICAN-AMERICAN 13.5 ml/min; POTASSIUM SERUM 3.9 mEq/L (3.5-5.1); TOTAL PROTEIN,SERUM 6.9 gm/dL (6.0-8.3)
[2018-09-13 23:39] LABS: INR 1.12 (0.5-1.4); PROTHROMBIN TIME (TEST) 11.5 SECONDS (9.5-11.5)
[2018-09-14 00:08] LABS: CREATININE - SERUM 4.6 mg/dL (0.7-1.3)
[2018-09-14] MEDS ORDERED: Morphine Sulfate 2 mg/mL 1mL Syr IM STA (01:50)
[2018-09-14] MEDS ORDERED: Morphine Sulfate 2 mg/mL 1mL Syr ONE (01:56)
--- NOTE | 2018-09-14 09:00 | Diagnostic Imaging Report ---
CT scan abdomen and pelvis without intravenous contrast HISTORY: Pain Total DLP equals 510 CTDI equals 10.2 Axial sections were obtained from the xiphoid process down to the pubic symphysis. Limited sections the lower chest demonstrate cardiomegaly. Small bilateral pleural effusions are seen. There is a small hiatal hernia. The liver exhibits a homogeneous parenchyma. No focal lesions. The spleen appears normal. No focal amenities seen within the pancreas. Changes of cholelithiasis noted. The proximal 3.0 cm cyst extends off the anterior cortex of the right kidney. No hydronephrosis. No focal lesions or hydronephrosis involving the left kidney. Atherosclerotic calcification noted through the abdominal aorta and iliac arteries. There is a small fat-containing umbilical hernia. The exam of the pelvis demonstrates preservation of normal fat planes. No abnormal soft tissue masses or abnormal fluid collections. There is enlargement of the prostate gland along with a partially contracted urinary bladder. Degenerative changes seen to the spine. Spondylolisthesis and bilateral spondylolysis noted at L5-S1. IMPRESSION: 1. Findings consistent with cholelithiasis 2. Right renal cyst 3. Enlarged prostate gland 4. Atherosclerotic vascular changes 5. Cardiomegaly with small bilateral pleural effusions
--- NOTE | 2018-09-14 09:29 | Diagnostic Imaging Report ---
Abdominal ultrasound HISTORY: Pain Exam is very limited due to bowel gas. No focal lesions are seen. Echogenic focus with acoustic shadowing seen in the region of the gallbladder fossa. The findings correspond to changes noted on the CT scan of July 14, 2019 of cholelithiasis. No biliary dilatation. The pancreas and kidneys could not be well visualized due to bowel gas. IMPRESSION: 1. Limited exam 2. Echogenic density with acoustic shadowing seen within the gallbladder fossa region. Findings correspond to findings of cholelithiasis noted on a CT scan of the 2018.
== END 2018-09-14 02:49 | disposition home or self-care (01) ==
LOC: ER 22:31
DX: K80.20 Calculus of gallbladder without cholecystitis without obstruction (principal); K80.50 Calculus of bile duct without cholangitis or cholecystitis without obstruction; E11.22 Type 2 diabetes mellitus with diabetic chronic kidney disease; I12.0 Hypertensive chronic kidney disease with stage 5 chronic kidney disease or end stage renal disease; N18.6 End stage renal disease; D64.9 Anemia, unspecified; Z99.2 Dependence on renal dialysis
CPT/HCPCS: 99284; 96372; 76705; 36415; 85025; 85610; 82150; 83036; 83690; 80053; 74176; J2270; Z7502